=== PATIENT | male | born 1955 | race Caucasian/White ===

== ENCOUNTER 2017-05-20 08:04 | Emergency (ER) | payer MEDICAID ==
[~2017-05-20] VITALS: Ht 170.2 cm; Wt 85.0 kg
[2017-05-20 08:18] VITALS: BP 192/105; PULSE 74; RESP 26; TEMP 98.7; O2SAT 92
[2017-05-20 08:29] VITALS: BP 165/79
[2017-05-20] MEDS ORDERED: ATOR20TA15 PO (08:32)
[2017-05-20] MEDS ORDERED: LEVO150T7 PO (08:32)
[2017-05-20] MEDS ORDERED: BACL10TA PO (08:32)
[2017-05-20] MEDS ORDERED: LOSA100T PO (08:32)
[2017-05-20] MEDS ORDERED: GABA600T PO (08:32)
[2017-05-20] MEDS ORDERED: IBUP1TAB7 PO (08:32)
[2017-05-20 09:14] LABS: AUTOMATED NEUTROPHIL # 4.2 TH/MM3 (1.8-7.7); BASOPHIL # 0.1 TH/MM3 (0-0.2); BASOPHIL % 0.9 % (0.0-2.0); EOSINOPHIL # 0.2 TH/MM3 (0-0.4); EOSINOPHIL % 4.1 % (0.0-4.0); HEMATOCRIT 37.8 % (39.0-51.0); HEMOGLOBIN 12.6 GM/DL (13.0-17.0); LYMPH % 16.5 % (9.0-44.0); MEAN CELL VOLUME 86.4 FL (80.0-100.0); MEAN CORPUSCULAR HEMOGLOBIN 28.8 PG (27.0-34.0); MEAN CORPUSCULAR HGB CONC 33.3 % (32.0-36.0); MEAN PLATELET VOLUME 8.8 FL (7.0-11.0); MONO % 8.9 % (0.0-8.0); MONOCYTE # 0.5 TH/MM3 (0-0.9); NEUT % 69.6 % (16.0-70.0); PLATELET COUNT 190 TH/MM3 (150-450); RED BLOOD COUNT 4.37 MIL/MM3 (4.50-5.90)
--- NOTE | 2017-05-20 09:18 | PD ---
HPI Chief Complaint: Medical Clearance Time Seen by Provider: 08:23 Travel History International Travel<30 days: No Contact w/Intl Traveler<30days: No Traveled to known affect area: No History of Present Illness HPI This is a 62-year-old male with history of cerebral palsy, hypothyroidism, COPD , who presents here via EMS after he called because he needs help caring for himself. According to the paramedics and the patient, he was discharged from an [facility] yesterday. Report was that he has called EMS 3 times to help him. The patient complains of drainage from his ears bilaterally. He denies any other symptoms at this time. He is a difficult historian however he states that he is unable to care for himself and his dog at home. There are no other complaints. PFSH Past Medical History High Cholesterol: Yes Diminished Hearing: Yes Hypertension: Yes Medical other: Yes (CEREBRAL PALSEY, BASOGANGLIAL DYSFUNCTION) Thyroid Disease: Yes Past Surgical History Abdominal Surgery: Yes (HERNIA) Eye Surgery: Yes Social History Alcohol Use: No Tobacco Use: No Substance Use: No Allergies-Medications (Allergen,Severity, Reaction): Coded Allergies: No Known Allergies (Unverified , 05/20/17) Reported Meds & Prescriptions Reported Meds & Active Scripts Active Ofloxacin Otic Drops 0.3 % Drops 5 Drop LEFT EAR DAILY 7 Days Reported Levothyroxine (Levothyroxine Sodium) 150 Mcg Tab 150 Mcg PO DAILY Ibuprofen 800 Mg Tab 800 Mg PO TID Losartan (Losartan Potassium) 100 Mg Tab 100 Mg PO DAILY Gabapentin 600 Mg Tab 600 Mg PO BID Baclofen 10 Mg Tab 10 Mg PO BID Atorvastatin (Atorvastatin Calcium) 20 Mg Tab 20 Mg PO HS Review of Systems ROS Limitations: Poor Historian Except as stated in HPI: all other systems reviewed are Neg General / Constitutional: No: Fever, Chills HENT: Positive: Ear Discharge, No: Headaches, Neck Pain Cardiovascular: No: Chest Pain or Discomfort, Palpitations Respiratory: No: Cough, Shortness of Breath Gastrointestinal: No: Nausea, Vomiting, Abdominal Pain Genitourinary: No: Dysuria, Decreased Urinary Output Musculoskeletal: No: Weakness Neurologic: No: Weakness, Dizziness, Headache Physical Exam Narrative GENERAL: Well-developed well-nourished male in no acute respiratory distress. SKIN: Focused skin assessment warm/dry. HEAD: Atraumatic. Normocephalic. EYES: No scleral icterus. No injection or drainage. ENT: No nasal bleeding or discharge. Mucous membranes pink and moist. Patient had purulent discharge in his left ear canal. This is the same canal that that he has a hearing aid in. Right ear canal appeared clear. NECK: Trachea midline. No JVD. CARDIOVASCULAR: Regular rate and rhythm. No murmur appreciated. RESPIRATORY: No accessory muscle use. Clear to auscultation. Breath sounds equal bilaterally. GASTROINTESTINAL: Abdomen soft, non-tender, nondistended. Hepatic and splenic margins not palpable. MUSCULOSKELETAL: No obvious deformities. No clubbing. No cyanosis. No edema. NEUROLOGICAL: Awake and alert. Motor grossly within normal limits. Pressured speech secondary to his chronic medical condition Data Data Last Documented VS Vital Signs Date Time Temp Pulse Resp B/P (MAP) Pulse Ox O2 Delivery O2 Flow Rate FiO2 05/20/17 08:29 165/79 (107) 05/20/17 08:18 98.7 74 26 92 Nasal Cannula 2.00 Orders Orders Complete Blood Count With Diff (05/20/17 08:29) Comprehensive Metabolic Panel (05/20/17 08:29) Thyroid Stimulating Hormone (05/20/17 08:29) Iv Access Insert/Monitor (05/20/17 08:29) Ecg Monitoring (05/20/17 08:29) Oximetry (05/20/17 08:29) Labs Laboratory Tests Test 05/20/17 08:30 White Blood Count 6.0 TH/MM3 Red Blood Count 4.37 MIL/MM3 Hemoglobin 12.6 GM/DL Hematocrit 37.8 % Mean Corpuscular Volume 86.4 FL Mean Corpuscular Hemoglobin 28.8 PG Mean Corpuscular Hemoglobin Concent 33.3 % Red Cell Distribution Width 14.0 % Platelet Count 190 TH/MM3 Mean Platelet Volume 8.8 FL Neutrophils (%) (Auto) 69.6 % Lymphocytes (%) (Auto) 16.5 % Monocytes (%) (Auto) 8.9 % Eosinophils (%) (Auto) 4.1 % Basophils (%) (Auto) 0.9 % Neutrophils # (Auto) 4.2 TH/MM3 Lymphocytes # (Auto) 1.0 TH/MM3 Monocytes # (Auto) 0.5 TH/MM3 Eosinophils # (Auto) 0.2 TH/MM3 Basophils # (Auto) 0.1 TH/MM3 CBC Comment DIFF FINAL Differential Comment Blood Urea Nitrogen 11 MG/DL Creatinine 0.89 MG/DL Random Glucose 81 MG/DL Total Protein 7.2 GM/DL Albumin 4.0 GM/DL Calcium Level 9.4 MG/DL Alkaline Phosphatase 62 U/L Aspartate Amino Transf (AST/SGOT) 18 U/L Alanine Aminotransferase (ALT/SGPT) 20 U/L Total Bilirubin 0.5 MG/DL Sodium Level 138 MEQ/L Potassium Level 4.0 MEQ/L Chloride Level 98 MEQ/L Carbon Dioxide Level 32.9 MEQ/L Anion Gap 7 MEQ/L Estimat Glomerular Filtration Rate 86 ML/MIN Thyroid Stimulating Hormone 3rd Gen 3.080 uIU/ML MDM Medical Decision Making Medical Screen Exam Complete: Yes Emergency Medical Condition: Yes Differential Diagnosis Poor social situation versus left otitis externa versus metabolic derangement Narrative Course 62-year-old male with history of cerebral palsy, presents today stating he was having difficulty caring for himself after being sent home from an [facility]residential. The patient has left otitis externa. He will be treated with ofloxacin drops. The patient was evaluated by her manager case management and she spoke with his winterizer who states that he is immature and able to care for himself. They will arrange to have follow-up in care for him. The patient is instructed to call if he is unable to care for himself or has any other concerns. Diagnosis Primary Impression: Left otitis externa Additional Impressions: Cerebral palsy Hypothyroidism Scripts Ofloxacin Otic Drops (Ofloxacin Otic Drops) 0.3 % Drops 5 DROP LEFT EAR DAILY for Infection for 7 Days, #1 BOTTLE 0 Refills Prov: Doug Higgins MD 05/20/17 Disposition: DISCHARGE HOME Condition: Stable Doug Higgins MD May 20, 2017 09:18
[2017-05-20 09:24] LABS: AST (GOT) 18 U/L (15-37); BICARBONATE 32.9 MEQ/L (21.0-32.0); BLOOD UREA NITROGEN 11 MG/DL (7-18); CALCIUM 9.4 MG/DL (8.5-10.1); CHLORIDE 98 MEQ/L (98-107); CREATININE 0.89 MG/DL (0.60-1.30); GLOMERULAR FILTRATION RATE 86 ML/MIN (>89); GLUCOSE,RANDOM 81 MG/DL (74-106); SODIUM (NA) 138 MEQ/L (136-145)
[2017-05-20 09:25] LABS: ALT (GPT) 20 U/L (12-78)
[2017-05-20 09:34] LABS: ALKALINE PHOSPHATASE 62 U/L (45-117); TOTAL BILIRUBIN ADULT 0.5 MG/DL (0.2-1.0); TOTAL PROTEIN 7.2 GM/DL (6.4-8.2)
[2017-05-20] MEDS ORDERED: OFLO0.3D9 LEFT EAR (10:49)
== END 2017-05-20 12:35 | disposition home or self-care (01) ==
LOC: NEPE 08:04
DX: H60.92 Unspecified otitis externa, left ear (principal); G80.9 Cerebral palsy, unspecified; E03.9 Hypothyroidism, unspecified; J44.9 Chronic obstructive pulmonary disease, unspecified; I10 Essential (primary) hypertension; E78.00 Pure hypercholesterolemia, unspecified; Z79.899 Other long term (current) drug therapy
CPT/HCPCS: 80053; 84443; 85025; 99283

== ENCOUNTER 2017-05-26 17:57 | Observation (INO) | payer OTHER, MEDICAID ==
[~2017-05-26 17:57] MED LIST: ATOR20TA15 PO; BACL10TA PO; GABA600T PO; IBUP1TAB7 PO; LEVO150T7 PO; LOSA100T PO; OFLO0.3D9 LEFT EAR
[2017-05-26 18:14] VITALS: BP 137/81; PULSE 73; RESP 14; TEMP 98.5; O2SAT 94
[2017-05-26] MEDS ORDERED: SODIUM CHLORIDE 0.9% FLUSH 10 ML FLUSH IVF PRN (19:45)
--- NOTE | 2017-05-26 19:47 | PD ---
HPI Chief Complaint: Medical Clearance Time Seen by Provider: 19:43 Travel History International Travel<30 days: No Contact w/Intl Traveler<30days: No Traveled to known affect area: No History of Present Illness HPI 62-year-old male with history of hypertension presents emergency department for medical clearance. Patient was at home and unable to get out of his chair. He contacted a social science manager who then contacted 911 because she was unable to get to his house. Patient states that he was unable to get out of his chair due to bilateral lower extremity edema. This is been worsening over the last 2 weeks. Reports mild shortness of breath. No chest pain. He states he has otherwise been well. No fever or chills. No nausea vomiting. No cough or chest congestion. No other symptoms to report. PFSH Past Medical History High Cholesterol: Yes Diminished Hearing: Yes Hypertension: Yes Thyroid Disease: Yes Past Surgical History Abdominal Surgery: Yes (HERNIA) Eye Surgery: Yes Social History Alcohol Use: No Tobacco Use: No Substance Use: No Allergies-Medications (Allergen,Severity, Reaction): Coded Allergies: No Known Allergies (Unverified , 05/20/17) Reported Meds & Prescriptions Reported Meds & Active Scripts Active Ofloxacin Otic Drops 0.3 % Drops 5 Drop LEFT EAR DAILY 7 Days Reported Levothyroxine (Levothyroxine Sodium) 150 Mcg Tab 150 Mcg PO DAILY Ibuprofen 800 Mg Tab 800 Mg PO TID Losartan (Losartan Potassium) 100 Mg Tab 100 Mg PO DAILY Gabapentin 600 Mg Tab 600 Mg PO BID Baclofen 10 Mg Tab 10 Mg PO BID Atorvastatin (Atorvastatin Calcium) 20 Mg Tab 20 Mg PO HS Review of Systems Except as stated in HPI: all other systems reviewed are Neg Physical Exam Narrative GENERAL: Unkempt male patient, lying in bed, in no acute distress. SKIN: Focused skin assessment warm/dry. HEAD: Atraumatic. Normocephalic. EYES: Slight crusting around the lash line. ENT: No nasal bleeding or discharge. Mucous membranes pink and mildly dry.. NECK: Trachea midline. No JVD. CARDIOVASCULAR: Regular rate and rhythm. No murmur appreciated. RESPIRATORY: No accessory muscle use. Clear to auscultation. Breath sounds equal bilaterally. GASTROINTESTINAL: Abdomen soft, non-tender, nondistended. Hepatic and splenic margins not palpable. MUSCULOSKELETAL: No obvious deformities. No clubbing. No cyanosis. 2+ bilateral lower extremity edema. NEUROLOGICAL: Awake and alert. No obvious cranial nerve deficits. Motor grossly within normal limits. Normal speech. PSYCHIATRIC: Appropriate mood and affect; insight and judgment normal. Data Data Last Documented VS Vital Signs Date Time Temp Pulse Resp B/P (MAP) Pulse Ox O2 Delivery O2 Flow Rate FiO2 05/26/17 20:27 79 15 154/79 (104) 96 Nasal Cannula 3.00 05/26/17 18:14 98.5 Orders Orders Complete Blood Count With Diff (05/26/17 19:43) Comprehensive Metabolic Panel (05/26/17 19:43) B-Type Natriuretic Peptide (05/26/17 19:43) Act Partial Throm Time (Ptt) (05/26/17 19:43) Prothrombin Time / Inr (Pt) (05/26/17 19:43) Magnesium (Mg) (05/26/17 19:43) Ckmb (Isoenzyme) Profile (05/26/17 19:43) Troponin I (05/26/17 19:43) Iv Access Insert/Monitor (05/26/17 19:43) Electrocardiogram (05/26/17 19:43) Ecg Monitoring (05/26/17 19:43) Oximetry (05/26/17 19:43) Oxygen Administration (05/26/17 19:43) Chest, Single Ap (05/26/17 19:43) Sodium Chloride 0.9% Flush (Ns Flush) (05/26/17 19:45) Furosemide (Lasix) (05/26/17 21:45) Labs Laboratory Tests Test 05/26/17 19:50 White Blood Count 5.8 TH/MM3 Red Blood Count 3.98 MIL/MM3 Hemoglobin 11.1 GM/DL Hematocrit 34.4 % Mean Corpuscular Volume 86.4 FL Mean Corpuscular Hemoglobin 27.7 PG Mean Corpuscular Hemoglobin Concent 32.1 % Red Cell Distribution Width 13.9 % Platelet Count 178 TH/MM3 Mean Platelet Volume 9.1 FL Neutrophils (%) (Auto) 67.3 % Lymphocytes (%) (Auto) 19.1 % Monocytes (%) (Auto) 9.3 % Eosinophils (%) (Auto) 3.6 % Basophils (%) (Auto) 0.7 % Neutrophils # (Auto) 3.9 TH/MM3 Lymphocytes # (Auto) 1.1 TH/MM3 Monocytes # (Auto) 0.5 TH/MM3 Eosinophils # (Auto) 0.2 TH/MM3 Basophils # (Auto) 0.0 TH/MM3 CBC Comment DIFF FINAL Differential Comment Prothrombin Time 10.8 SEC Prothromb Time International Ratio 1.1 RATIO Activated Partial Thromboplast Time 26.6 SEC Blood Urea Nitrogen 22 MG/DL Creatinine 0.87 MG/DL Random Glucose 82 MG/DL Total Protein 6.7 GM/DL Albumin 3.6 GM/DL Calcium Level 8.7 MG/DL Magnesium Level 2.1 MG/DL Alkaline Phosphatase 58 U/L Aspartate Amino Transf (AST/SGOT) 13 U/L Alanine Aminotransferase (ALT/SGPT) 17 U/L Total Bilirubin 0.5 MG/DL Sodium Level 144 MEQ/L Potassium Level 3.8 MEQ/L Chloride Level 106 MEQ/L Carbon Dioxide Level 32.4 MEQ/L Anion Gap 6 MEQ/L Estimat Glomerular Filtration Rate 88 ML/MIN Total Creatine Kinase 84 U/L Troponin I LESS THAN 0.02 NG/ML B-Type Natriuretic Peptide 59 PG/ML MDM Medical Decision Making Medical Screen Exam Complete: Yes Emergency Medical Condition: Yes Medical Record Reviewed: Yes Differential Diagnosis Dependent edema versus electrolyte abnormality versus CHF Narrative Course 62-year-old male presents emergency department for evaluation of bilateral lower extremity edema. Patient appears without distress. Vital signs are stable. Laboratory Tests Test 05/26/17 19:50 White Blood Count 5.8 TH/MM3 Red Blood Count 3.98 MIL/MM3 Hemoglobin 11.1 GM/DL Hematocrit 34.4 % Mean Corpuscular Volume 86.4 FL Mean Corpuscular Hemoglobin 27.7 PG Mean Corpuscular Hemoglobin Concent 32.1 % Red Cell Distribution Width 13.9 % Platelet Count 178 TH/MM3 Mean Platelet Volume 9.1 FL Neutrophils (%) (Auto) 67.3 % Lymphocytes (%) (Auto) 19.1 % Monocytes (%) (Auto) 9.3 % Eosinophils (%) (Auto) 3.6 % Basophils (%) (Auto) 0.7 % Neutrophils # (Auto) 3.9 TH/MM3 Lymphocytes # (Auto) 1.1 TH/MM3 Monocytes # (Auto) 0.5 TH/MM3 Eosinophils # (Auto) 0.2 TH/MM3 Basophils # (Auto) 0.0 TH/MM3 CBC Comment DIFF FINAL Differential Comment Prothrombin Time 10.8 SEC Prothromb Time International Ratio 1.1 RATIO Activated Partial Thromboplast Time 26.6 SEC Blood Urea Nitrogen 22 MG/DL Creatinine 0.87 MG/DL Random Glucose 82 MG/DL Total Protein 6.7 GM/DL Albumin 3.6 GM/DL Calcium Level 8.7 MG/DL Magnesium Level 2.1 MG/DL Alkaline Phosphatase 58 U/L Aspartate Amino Transf (AST/SGOT) 13 U/L Alanine Aminotransferase (ALT/SGPT) 17 U/L Total Bilirubin 0.5 MG/DL Sodium Level 144 MEQ/L Potassium Level 3.8 MEQ/L Chloride Level 106 MEQ/L Carbon Dioxide Level 32.4 MEQ/L Anion Gap 6 MEQ/L Estimat Glomerular Filtration Rate 88 ML/MIN Total Creatine Kinase 84 U/L Troponin I LESS THAN 0.02 NG/ML B-Type Natriuretic Peptide 59 PG/ML Last Impressions Chest X-Ray 05/26/171942 Signed Impressions: Service Date/Time: Friday, May 26, 2017 20:14 - CONCLUSION: Prominence of the left hilar region. Maurice Zayas MD Findings are discussed with my attending physician who is also reviewed them. Patient is given 20 mg by mouth Lasix. He will be observed in the emergency department and disposition per my attending's judgment. Diagnosis Primary Impression: Bilateral lower extremity edema Condition: Stable RenoDaysiwally FELTON May 26, 2017 19:47
[2017-05-26 20:23] VITALS: RESP 20; O2SAT 100
[2017-05-26 20:27] VITALS: BP 154/79; PULSE 79; RESP 15; O2SAT 96
[2017-05-26 20:46] LABS: AUTOMATED NEUTROPHIL # 3.9 TH/MM3 (1.8-7.7); BASOPHIL % 0.7 % (0.0-2.0); EOSINOPHIL # 0.2 TH/MM3 (0-0.4); EOSINOPHIL % 3.6 % (0.0-4.0); HEMATOCRIT 34.4 % (39.0-51.0); HEMOGLOBIN 11.1 GM/DL (13.0-17.0); LYMPH % 19.1 % (9.0-44.0); LYMPHOCYTE # 1.1 TH/MM3 (1.0-4.8); MEAN CELL VOLUME 86.4 FL (80.0-100.0); MEAN CORPUSCULAR HEMOGLOBIN 27.7 PG (27.0-34.0); MEAN CORPUSCULAR HGB CONC 32.1 % (32.0-36.0); MEAN PLATELET VOLUME 9.1 FL (7.0-11.0); MONO % 9.3 % (0.0-8.0); MONOCYTE # 0.5 TH/MM3 (0-0.9); NEUT % 67.3 % (16.0-70.0); PLATELET COUNT 178 TH/MM3 (150-450); RED BLOOD COUNT 3.98 MIL/MM3 (4.50-5.90); RED CELL DISTRIBUTION WIDTH 13.9 % (11.6-17.2); WHITE BLOOD COUNT 5.8 TH/MM3 (4.0-11.0)
[2017-05-26 20:57] LABS: ALBUMIN 3.6 GM/DL (3.4-5.0); AST (GOT) 13 U/L (15-37); BICARBONATE 32.4 MEQ/L (21.0-32.0); BLOOD UREA NITROGEN 22 MG/DL (7-18); CALCIUM 8.7 MG/DL (8.5-10.1); CHLORIDE 106 MEQ/L (98-107); CREATININE 0.87 MG/DL (0.60-1.30); GLOMERULAR FILTRATION RATE 88 ML/MIN (>89); GLUCOSE,RANDOM 82 MG/DL (74-106); MAGNESIUM 2.1 MG/DL (1.5-2.5); SODIUM (NA) 144 MEQ/L (136-145)
[2017-05-26 20:58] LABS: ALT (GPT) 17 U/L (12-78)
[2017-05-26 21:00] LABS: INTERNATIONAL NORMALIZED RATIO 1.1 RATIO; PROTHROMBIN TIME - PATIENT 10.8 SEC (9.8-11.6)
[2017-05-26 21:02] LABS: ALKALINE PHOSPHATASE 58 U/L (45-117); TOTAL BILIRUBIN ADULT 0.5 MG/DL (0.2-1.0); TOTAL PROTEIN 6.7 GM/DL (6.4-8.2); TROPONIN I LESS THAN 0.02 NG/ML (0.02-0.05)
--- NOTE | 2017-05-26 21:05 | RADRPT ---
EXAM DATE/TIME: 05/26/2017 20:14 [place] COMPARISON: No previous studies available for comparison. INDICATIONS : Shortness of breath. MEDICAL HISTORY : None. SURGICAL HISTORY : None. ENCOUNTER: Initial ACUITY: 1 day PAIN SCORE: Non-responsive. LOCATION: Bilateral chest FINDINGS: The heart size is within normal. The lungs are grossly clear. The left hilar region appears prominent . A significant effusion is not seen. CONCLUSION: Prominence of the left hilar region. Maurice Zayas MD on May 26, 2017 at 21:02 Board Certified Radiologist. This report was verified electronically.
[2017-05-26] MEDS ORDERED: FUROSEMIDE 20 MG TAB PO ONE (21:45)
[2017-05-26 23:37] VITALS: BP 147/82; PULSE 97; RESP 20; O2SAT 96
--- NOTE | 2017-05-27 03:29 | PD ---
Physical Exam Date Seen by Provider: May 26, 2017 Time Seen by Provider: 23:30 Narrative Patient is a 62-year-old male seen by the PA nurse practitioner Daysi we discussed that I would observe the patient after we gave 20 of Lasix patient is given 20 of Lasix p.o. his legs are edematous and he is not on any diuretic he has a visiting nurse but there is unable to help him because he is unable to get up out of his chair and legs are weak and edema of legs is worsening he is becoming unable to care for himself .. Data Data Last Documented VS Vital Signs Date Time Temp Pulse Resp B/P (MAP) Pulse Ox O2 Delivery O2 Flow Rate FiO2 05/26/17 23:37 97 20 147/82 (103) 96 3.00 05/26/17 20:27 Nasal Cannula 05/26/17 18:14 98.5 Orders Orders Complete Blood Count With Diff (05/26/17 19:43) Comprehensive Metabolic Panel (05/26/17 19:43) B-Type Natriuretic Peptide (05/26/17 19:43) Act Partial Throm Time (Ptt) (05/26/17 19:43) Prothrombin Time / Inr (Pt) (05/26/17 19:43) Magnesium (Mg) (05/26/17 19:43) Ckmb (Isoenzyme) Profile (05/26/17 19:43) Troponin I (05/26/17 19:43) Iv Access Insert/Monitor (05/26/17 19:43) Electrocardiogram (05/26/17 19:43) Ecg Monitoring (05/26/17 19:43) Oximetry (05/26/17 19:43) Oxygen Administration (05/26/17 19:43) Chest, Single Ap (05/26/17 19:43) Sodium Chloride 0.9% Flush (Ns Flush) (05/26/17 19:45) Furosemide (Lasix) (05/26/17 21:45) Place In Observation (05/27/17 ) Vital Signs (Adult) Q4H (05/27/17 03:24) Activity Oob With Assistance (05/27/17 03:24) Diet Heart Healthy (05/27/17 Breakfast) Sodium Chloride 0.9% Flush (Ns Flush) (05/27/17 03:30) Sodium Chloride 0.9% Flush (Ns Flush) (05/27/17 09:00) Ondansetron Inj (Zofran Inj) (05/27/17 03:30) Comprehensive Metabolic Panel (05/28/17 06:00) Complete Blood Count With Diff (05/28/17 06:00) Pt Request For Service (05/27/17 03:24) Case Management Consult (05/27/17 03:24) Scd Bilateral/Knee High SALMA.BID (05/27/17 03:24) Mauro Bilateral/Knee High SALMA.QSHIFT (05/27/17 03:29) Acetaminophen (Tylenol) (05/27/17 03:30) Acetamin-Hydrocod 325-5 Mg ([place] 5-325 (05/27/17 03:30) Acetamin-Hydrocod 325-10 Mg ([place] 10-32 (05/27/17 03:30) Docusate Sodium-Senna (Ny-Colace) (05/27/17 09:00) Magnesium Hydroxide Liq (Milk Of Magnesi (05/27/17 03:30) Sennosides (Senokot) (05/27/17 03:30) Bisacodyl Supp (Dulcolax Supp) (05/27/17 03:30) Lactulose Liq (Lactulose Liq) (05/27/17 03:30) Atorvastatin (Lipitor) (05/27/17 21:00) Baclofen (Lioresal) (05/27/17 09:00) Gabapentin (Neurontin) (05/27/17 09:00) Levothyroxine (Synthroid) (05/27/17 07:00) Losartan (Cozaar) (05/27/17 09:00) Admit Order (Ed Use Only) (05/27/17 03:29) Labs Laboratory Tests Test 05/26/17 19:50 White Blood Count 5.8 TH/MM3 Red Blood Count 3.98 MIL/MM3 Hemoglobin 11.1 GM/DL Hematocrit 34.4 % Mean Corpuscular Volume 86.4 FL Mean Corpuscular Hemoglobin 27.7 PG Mean Corpuscular Hemoglobin Concent 32.1 % Red Cell Distribution Width 13.9 % Platelet Count 178 TH/MM3 Mean Platelet Volume 9.1 FL Neutrophils (%) (Auto) 67.3 % Lymphocytes (%) (Auto) 19.1 % Monocytes (%) (Auto) 9.3 % Eosinophils (%) (Auto) 3.6 % Basophils (%) (Auto) 0.7 % Neutrophils # (Auto) 3.9 TH/MM3 Lymphocytes # (Auto) 1.1 TH/MM3 Monocytes # (Auto) 0.5 TH/MM3 Eosinophils # (Auto) 0.2 TH/MM3 Basophils # (Auto) 0.0 TH/MM3 CBC Comment DIFF FINAL Differential Comment Prothrombin Time 10.8 SEC Prothromb Time International Ratio 1.1 RATIO Activated Partial Thromboplast Time 26.6 SEC Blood Urea Nitrogen 22 MG/DL Creatinine 0.87 MG/DL Random Glucose 82 MG/DL Total Protein 6.7 GM/DL Albumin 3.6 GM/DL Calcium Level 8.7 MG/DL Magnesium Level 2.1 MG/DL Alkaline Phosphatase 58 U/L Aspartate Amino Transf (AST/SGOT) 13 U/L Alanine Aminotransferase (ALT/SGPT) 17 U/L Total Bilirubin 0.5 MG/DL Sodium Level 144 MEQ/L Potassium Level 3.8 MEQ/L Chloride Level 106 MEQ/L Carbon Dioxide Level 32.4 MEQ/L Anion Gap 6 MEQ/L Estimat Glomerular Filtration Rate 88 ML/MIN Phosphorus Level 2.5 MG/DL Total Creatine Kinase 84 U/L Troponin I LESS THAN 0.02 NG/ML B-Type Natriuretic Peptide 59 PG/ML 25-Hydroxy Vitamin D Total 43.3 ng/ML Thyroid Stimulating Hormone 3rd Gen 0.473 uIU/ML MDM Supervised Visit with MELVIN: Yes Differential Diagnosis DDx includes renal insufficiency overload fluid to legs vs CHF pump failure to peripheral edema vs vascular valve incompetence vs other causes of edema . Narrative Course pt has not improved with lasix and will need to be admitted. On further investigation by nursing it is discovered he is failing with his ADL and unable to care for himself at home and there was involvemant of visiting Nurse service that he needs admission medically and also re-eval for long-term facility living as opposed to independent living. He has a dog that he is very upset he can't take care of his dog now .. Apparently the dog was placed in custody of another. Diagnosis Primary Impression: Bilateral lower extremity edema Additional Impression: Impaired mobility and ADLs Admitting Information Admitting Physician Requests: Observation Scripts Ascorbic Acid (Sm Chewable C) 500 Mg Chw 250 MG PO BID for Anemia, #30 EA Prov: Sylvia Waite 05/29/17 Pantoprazole (Pantoprazole) 40 Mg Tab 40 MG PO DAILY for Reflux, #30 TAB Prov: Sylvia Waite 05/29/17 Ferrous Sulfate (Ferosul) 325 Mg (65 Mg Iron) Tablet 325 MG PO BID for Anemia, #60 TAB Prov: Sylvia Waite 05/29/17 Tamsulosin (Flomax) 0.4 Mg Cap 0.4 MG PO DAILY for Enlarged prostate, #30 CAP Prov: Sylvia Waite 05/29/17 Condition: Stable Anirudh Hardy MD May 27, 2017 03:29
[2017-05-27] MEDS ORDERED: MAGNESIUM HYDROXIDE SUSP 30 ML CUP PO PRN (03:30)
[2017-05-27] MEDS ORDERED: LACTULOSE SYRUP 20 GM/30 ML CUP PO PRN (03:30)
[2017-05-27] MEDS ORDERED: BISACODYL 10 MG SUPP RECTAL PRN (03:30)
[2017-05-27] MEDS ORDERED: SENNOSIDES 8.6 MG TAB PO PRN (03:30)
[2017-05-27] MEDS ORDERED: ACETAMINOPHEN/HYDROcodone 325 MG/5 MG TAB PO PRN (03:30)
[2017-05-27] MEDS ORDERED: SODIUM CHLORIDE 0.9% FLUSH 10 ML FLUSH IV FLUSH PRN (03:30)
[2017-05-27] MEDS ORDERED: ACETAMINOPHEN 325 MG TAB PO PRN (03:30)
[2017-05-27] MEDS ORDERED: ONDANSETRON HCL 4 MG/2 ML VIAL IVP PRN (03:30)
--- NOTE | 2017-05-27 04:03 | HHI.HP ---
[facility] Service [place] [facility] Primary Care Physician Dejuan Ruby MD Admission Diagnosis periperal edema mild CHF Diagnoses: (1) Bilateral lower extremity edema Diagnosis: Principal (2) Otitis externa Diagnosis: Principal (3) Total self-care deficit Diagnosis: Principal Travel History International Travel<30 Days: No Contact w/Intl Traveler <30 Da: No Traveled to Known Affected Are: No History of Present Illness This is a 62-year-old male with a PMH of Cerebral Palsy, HTN, Hyperlipidemia and Hearing/Vision Loss who was brought to the ER by EMS after pt unable to get out of chair. Pt reports worsening lower extremity edema and unable to get around on his own. Was seen in ER on 05/20/17 for similar complaints, found to have Otitis Externa, given antibiotic drops and d/c'd back to [facility] under the care of [facility]. Today, pt called Trip Rider as he was unable to get up and can't take care of self. On arrival, BP 137/81, HR 73, O2 sat 94% on RA , Afebrile. CBC unremarkable. Chemistry essentially unremarkable. Troponin negative. INR 1.1. CXR with prominence of left hilar region. S/p Lasix IV in ER. Case Management consulted, pt unable to be d/c'd back to [facility] as unable to care for self, unsafe d/c at this time. Review of Systems Except as stated in HPI: all other systems reviewed are Neg ROS: 14 point review of systems otherwise negative. Past Family Social History Past Medical History PMH: Cerebral Palsy, HTN, Hyperlipidemia and Hearing/Vision Loss Past Surgical History PAST SURGICAL HISTORY: Hernia Repair, Eye Surgery Allergies: Coded Allergies: No Known Allergies (Unverified , 05/20/17) Family History PAST FAMILY HISTORY: Reviewed. No h/o DM or CAD Social History PAST SOCIAL HISTORY: Negative for alcohol, tobacco or drugs. Physical Exam Vital Signs Vital Signs Date Time Temp Pulse Resp B/P (MAP) Pulse Ox O2 Delivery O2 Flow Rate FiO2 05/26/17 23:37 97 20 147/82 (103) 96 3.00 05/26/17 20:27 79 15 154/79 (104) 96 Nasal Cannula 3.00 05/26/17 20:23 20 100 Nasal Cannula 3.00 05/26/17 20:22 100 Nasal Cannula 3.00 05/26/17 18:14 98.5 73 14 137/81 (99) 94 Physical Exam PE: GENERAL: Middle-aged white male in no acute distress. Hearing/vision impaired. HEENT: PERRLA, EOMI. No scleral icterus or conjunctival pallor. No lid lag or facial droop. CARDIOVASCULAR: Regular rate and rhythm. No obvious murmurs to auscultation. No chest tenderness to palpation. RESPIRATORY: No obvious rhonchi or wheezing. Clear to auscultation. Breath sounds equal bilaterally. GASTROINTESTINAL: Abdomen soft, non-tender, nondistended. BS normal. MUSCULOSKELETAL: Extremities without clubbing, cyanosis. +2 edema. No obvious deformities. NEUROLOGICAL: Awake, alert and oriented x4. No focal neurologic deficits. Moving both upper and lower extremities spontaneously. Laboratory Laboratory Tests Test 05/26/17 19:50 White Blood Count 5.8 Red Blood Count 3.98 Hemoglobin 11.1 Hematocrit 34.4 Mean Corpuscular Volume 86.4 Mean Corpuscular Hemoglobin 27.7 Mean Corpuscular Hemoglobin Concent 32.1 Red Cell Distribution Width 13.9 Platelet Count 178 Mean Platelet Volume 9.1 Neutrophils (%) (Auto) 67.3 Lymphocytes (%) (Auto) 19.1 Monocytes (%) (Auto) 9.3 Eosinophils (%) (Auto) 3.6 Basophils (%) (Auto) 0.7 Neutrophils # (Auto) 3.9 Lymphocytes # (Auto) 1.1 Monocytes # (Auto) 0.5 Eosinophils # (Auto) 0.2 Basophils # (Auto) 0.0 CBC Comment DIFF FINAL Differential Comment Prothrombin Time 10.8 Prothromb Time International Ratio 1.1 Activated Partial Thromboplast Time 26.6 Blood Urea Nitrogen 22 Creatinine 0.87 Random Glucose 82 Total Protein 6.7 Albumin 3.6 Calcium Level 8.7 Magnesium Level 2.1 Alkaline Phosphatase 58 Aspartate Amino Transf (AST/SGOT) 13 Alanine Aminotransferase (ALT/SGPT) 17 Total Bilirubin 0.5 Sodium Level 144 Potassium Level 3.8 Chloride Level 106 Carbon Dioxide Level 32.4 Anion Gap 6 Estimat Glomerular Filtration Rate 88 Total Creatine Kinase 84 Troponin I LESS THAN 0.02 B-Type Natriuretic Peptide 59 Result Diagram: 05/26/17 1950 05/26/171949 Caprini VTE Risk Assessment Caprini VTE Risk Assessment: No/Low Risk (score <= 1) Caprini Risk Assessment Model Point Value = 1 Point Value = 2 Point Value = 3 Point Value = 5 Age 41-60 Minor surgery BMI > 25 kg/m2 Swollen legs Varicose veins or History of unexplained or recurrent spontaneous Oral contraceptives or hormone replacement Sepsis (< 1 month) Serious lung disease, including pneumonia (< 1 month) Abnormal pulmonary function Acute myocardial infarction Congestive heart failure (< 1 month) History of inflammatory bowel disease Medical patient at bed rest Age 61-74 Arthroscopic surgery Major open surgery (> 45 min) Laparoscopic surgery (> 45 min) Malignancy Confined to bed (> 72 hours) Immobilizing plaster cast Central venous access Age >= 75 History of VTE Family history of VTE Factor V Leiden Prothrombin [id number] Lupus anticoagulant Anticardiolipin antibodies Elevated serum homocysteine Heparin-induced thrombocytopenia Other congenital or acquired thrombophilia Stroke (< 1 month) Elective arthroplasty Hip, pelvis, or leg fracture Acute spinal cord injury (< 1 month) Prophylaxis Regimen Total Risk Factor Score Risk Level Prophylaxis Regimen 0-1 Low Early ambulation 2 Moderate Order ONE of the following: *Sequential Compression Device (SCD) *Heparin 5000 units SQ BID 3-4 Higher Order ONE of the following medications: *Heparin 5000 units SQ TID *Enoxaparin/Lovenox 40 mg SQ daily (WT < 150 kg, CrCl > 30 mL/min) *Enoxaparin/Lovenox 30 mg SQ daily (WT < 150 kg, CrCl > 10-29 mL/min) *Enoxaparin/Lovenox 30 mg SQ BID (WT < 150 kg, CrCl > 30 mL/min) AND/OR *Sequential Compression Device (SCD) 5 or more Highest Order ONE of the following medications: *Heparin 5000 units SQ TID (Preferred with Epidurals) *Enoxaparin/Lovenox 40 mg SQ daily (WT < 150 kg, CrCl > 30 mL/min) *Enoxaparin/Lovenox 30 mg SQ daily (WT < 150 kg, CrCl > 10-29 mL/min) *Enoxaparin/Lovenox 30 mg SQ BID (WT < 150 kg, CrCl > 30 mL/min) AND *Sequential Compression Device (SCD) Assessment and Plan Problem List: (1) Bilateral lower extremity edema ICD Code: R60.0 - Localized edema Status: Acute (2) Otitis externa ICD Code: H60.90 - Unspecified otitis externa, unspecified ear (3) Total self-care deficit ICD Code: R41.89 - Other symptoms and signs involving cognitive functions and awareness Assessment and Plan A/P: 1. Bilateral LE Edema: no h/o CHF, BNP normal, CXR w/ hilar prominence, likely vascular congestion, s/p Lasix 20mg IV in ER, monitor I/O. c/o associated SOB, will check Echo to eval for systolic/diastolic function. Trop negative, no c/o chest pain. 2. Otitis Externa: recent ER eval 05/20/17, +otitis externa, resume Ofloxacin gtts. 3. Total Self Care Deficit: pt w/ h/o Cerebral Palsy, Hearing/Vision Loss w/ progressive decline in function. Unable to care for self, unsafe d/c back to [facility]. Case Management recommending admission for placement. Will consult PT for eval/tx. 4. DVT Prophylaxis: SCD/Teds. 5. Social work for d/c planning as needed 6. Case discussed w/ ER physician at length, labs/records/imaging reviewed by me. Tara Collier MD May 27, 2017 04:02
[2017-05-27 04:34] VITALS: BP 140/89; PULSE 67; RESP 16; TEMP 98.1; O2SAT 94
[2017-05-27] MEDS: LEVOTHYROXINE SODIUM 150 MCG TAB PO SCH (04:46)
[2017-05-27 07:14] VITALS: BP 182/104; PULSE 56; RESP 14; TEMP 98.6; O2SAT 94
--- NOTE | 2017-05-27 07:57 | HHI.PR ---
Subjective Remarks Follow up on patient with BLE edema, unable to care for self, unsafe discharge back to [facility]. Patient seen and examined. Patient complaining of dysuria and difficulty initiating urination. States he has pain all over. Denies any fever or chills. Denies any chest pain or shortness of breath. Denies any nausea, vomiting or abdominal pain. Reports he uses oxygen at home 24/7 6LNC but is requesting a portable unit. Objective Vitals Vital Signs Date Time Temp Pulse Resp B/P (MAP) Pulse Ox O2 Delivery O2 Flow Rate FiO2 05/27/17 07:14 98.6 56 14 182/104 (130) 94 05/27/17 04:34 98.1 67 16 140/89 (106) 94 05/27/17 04:24 05/26/17 23:37 97 20 147/82 (103) 96 3.00 05/26/17 20:27 79 15 154/79 (104) 96 Nasal Cannula 3.00 05/26/17 20:23 20 100 Nasal Cannula 3.00 05/26/17 20:22 100 Nasal Cannula 3.00 05/26/17 18:14 98.5 73 14 137/81 (99) 94 I/O 05/26/17 05/26/17 05/26/17 05/27/17 05/27/17 05/27/17 07:00 15:00 23:00 07:00 15:00 23:00 Output Total 700 ml Balance -700 ml Output Urine Total 700 ml # Voids 1 Result Diagram: 05/26/17 1950 05/26/171949 Imaging Last Impressions Chest X-Ray 05/26/171942 Signed Impressions: Service Date/Time: Friday, May 26, 2017 20:14 - CONCLUSION: Prominence of the left hilar region. Maurice Zayas MD Objective Remarks GENERAL: Well developed well nourished male patient, in no acute distress. Hearing/vision impaired. Awake and alert. HEENT: PERRLA, EOMI. No scleral icterus or conjunctival pallor. No lid lag or facial droop. CARDIOVASCULAR: Regular rate and rhythm. No obvious murmurs to auscultation. No chest tenderness to palpation. RESPIRATORY: No obvious rhonchi or wheezing. Clear to auscultation. Breath sounds equal bilaterally. GASTROINTESTINAL: Abdomen soft, non-tender, nondistended. BS normal. MUSCULOSKELETAL: Extremities without clubbing, cyanosis. BLE with nonpitting edema. No obvious deformities. NEUROLOGICAL: Awake, alert and oriented x4. No focal neurologic deficits. Moving both upper and lower extremities spontaneously. Medications and IVs Current Medications Medications (Trade) Dose Ordered Sig/Jacquie Route Start Time Stop Time Status Last Admin (NS Flush) 2 ml UNSCH PRN IVF 05/26/17 19:45 (NS Flush) 2 ml UNSCH PRN IV FLUSH 05/27/17 03:30 (NS Flush) 2 ml BID IV FLUSH 05/27/17 09:00 (Zofran Inj) 4 mg Q6H PRN IVP 05/27/17 03:30 (Tylenol) 650 mg Q6H PRN PO 05/27/17 03:30 ([place] 5-325 Mg) 1 tab Q4H PRN PO 05/27/17 03:30 ([place] 10-325 Mg) 1 tab Q4H PRN PO 05/27/17 03:30 (Ny-Colace) 1 tab BID PO 05/27/17 09:00 (Milk Of Magnesia Liq) 30 ml Q12H PRN PO 05/27/17 03:30 (Senokot) 17.2 mg Q12H PRN PO 05/27/17 03:30 (Dulcolax Supp) 10 mg DAILY PRN RECTAL 05/27/17 03:30 (Lactulose Liq) 30 ml DAILY PRN PO 05/27/17 03:30 (Lipitor) 20 mg HS PO 05/27/17 21:00 (Lioresal) 10 mg BID PO 05/27/17 09:00 (Neurontin) 600 mg BID PO 05/27/17 09:00 (Synthroid) 150 mcg DAILY@0700 PO 05/27/17 07:00 05/27/17 04:46 (Cozaar) 100 mg DAILY PO 05/27/17 09:00 (Floxin 0.3% Otic Soln) 5 drop DAILY LEFT EAR 05/27/17 09:00 A/P Problem List: (1) Bilateral lower extremity edema ICD Code: R60.0 - Localized edema Status: Acute (2) Otitis externa ICD Code: H60.90 - Unspecified otitis externa, unspecified ear (3) Total self-care deficit ICD Code: R41.89 - Other symptoms and signs involving cognitive functions and awareness Assessment and Plan Bilateral LE Edema with associated SOB: no h/o CHF -CXR w/ hilar prominence -BNP 59 -s/p Lasix 20mg IV in ER, monitor I/O and electrolytes -check Echo to eval for systolic/diastolic function -Trop negative, no c/o chest pain -continue supplemental oxygen, patient uses 6LNC at home, currently satting 96% on 3L Hypertension, uncontrolled -BP 182/104 this am -resume patient on home dose of Cozaar 100mg daily -Clonidine with parameters prn -monitor BP and adjust treatment accordingly Otitis Externa: recent ER eval 05/20/17, +otitis externa -resume Ofloxacin gtts Total Self Care Deficit: pt w/ h/o Cerebral Palsy, Hearing/Vision Loss w/ progressive decline in function -Unable to care for self, unsafe d/c back to [facility]. Patient has a service animal. -Case Management recommending admission for placement. -PT for eval/tx -Continue on home dose of gabapentin and baclofen Hypothyroidism -continue on home dose of Levothyroxine 150mcg daily -obtain TSH level Dysuria Hesitancy -UA ordered -start Flomax 0.4mg daily DVT Prophylaxis: SCD/Teds. Discharge Planning Pending clinical improvement and safe discharge plan Sylvia Waite May 27, 2017 07:57
[2017-05-27] MEDS ORDERED: cloNIDine HCL 0.1 MG TAB PO PRN (08:00)
[2017-05-27] MEDS: DOCUSATE SODIUM 50 MG/SENNA 8.6 MG TAB PO SCH ×2 (08:07→20:49)
[2017-05-27] MEDS: GABAPENTIN 300 MG CAP PO SCH ×2 (08:07→20:50)
[2017-05-27] MEDS: BACLOFEN 10 MG TAB PO SCH ×2 (08:07→20:49)
[2017-05-27] MEDS: LOSARTAN 50 MG TAB PO SCH (08:08)
[2017-05-27] MEDS: SODIUM CHLORIDE 0.9% FLUSH 10 ML FLUSH IV FLUSH SCH ×2 (08:08→20:53)
[2017-05-27] MEDS ORDERED: OFLOXACIN 0.3% OTIC SOLN 5 ML BTL LEFT EAR SCH (09:00)
[2017-05-27 10:14] LABS: PHOSPHORUS 2.5 MG/DL (2.5-4.9)
[2017-05-27] MEDS: ACETAMINOPHEN/HYDROcodone 325 MG/10 MG TAB PO PRN ×4 (11:12→23:38)
[2017-05-27] MEDS: OFLOXACIN 0.3% OPTH SOLN 5 ML BTL LEFT EAR SCH (11:17)
[2017-05-27 11:21] LABS: BILIRUBIN, URINE NEG (NEG); BLOOD, URINE NEG (NEG); GLUCOSE,URINE NEG (NEG); HYALINE CAST, URINE 3 /lpf (RARE); KETONE, URINE NEG (NEG); MUCUS URINE FEW /lpf (OCC); NITRITE,URINE NEG (NEG); PH, URINE 5.5 (5.0-8.5); URINE COLOR YELLOW (YELLW/STRAW); URINE LEUKOCYTE ESTERASE NEG (NEG)
[2017-05-27 12:27] VITALS: BP 153/86; RESP 14; TEMP 97.4; O2SAT 96
--- NOTE | 2017-05-27 14:00 | EKG ---
Date Performed: 05/26/2017 Time Performed: 20:22:27 PTAGE: 62 years EKG: Sinus rhythm WITH OCCASIONAL SUPRAVENTRICULAR PREMATURE COMPLEXES BORDERLINE LEFT AXIS DEVIATION BORDERLINE ECG NO PREVIOUS TRACING DOCTOR: Judd Mendez Interpretating Date/Time 05/27/2017 13:57:59
[2017-05-27] MEDS ORDERED: TAMSULOSIN HCL 0.4 MG CAP PO ONE (14:45)
[2017-05-27] MEDS: ATORVASTATIN 20 MG TAB PO SCH (20:49)
[2017-05-27 20:57] VITALS: BP 111/68; PULSE 87; RESP 18; TEMP 98; O2SAT 95
[2017-05-27 23:33] VITALS: BP 108/70; PULSE 65; RESP 18; TEMP 98.2; O2SAT 91
[2017-05-28 03:19] VITALS: BP 111/59; PULSE 57; RESP 16; TEMP 98.1; O2SAT 99
--- NOTE | 2017-05-28 07:41 | HHI.PR ---
Subjective Remarks Follow up on patient with BLE edema, unable to care for self, unsafe discharge back to [facility]. Patient seen and examined. Patient states he legs are better. His breathing has improved. He denies any fever or chills. He denies any chest pain or shortness of breath. He denies any N/V or abdominal pain. He is urinating well. He would like to have his iron checked due to it being low in the past. Objective Vitals Vital Signs Date Time Temp Pulse Resp B/P (MAP) Pulse Ox O2 Delivery O2 Flow Rate FiO2 05/28/17 03:19 98.1 57 16 111/59 (76) 99 05/28/17 01:49 18 05/27/17 23:33 98.2 65 18 108/70 (83) 91 05/27/17 20:57 98.0 87 18 111/68 (82) 95 05/27/17 12:27 97.4 14 153/86 (108) 96 I/O 05/27/17 05/27/17 05/27/17 05/28/17 05/28/17 05/28/17 07:00 15:00 23:00 07:00 15:00 23:00 Intake Total 200 ml Output Total 700 ml 500 ml Balance -700 ml -300 ml Intake Oral 200 ml Output Urine Total 700 ml 500 ml Bladder Scan Volume Amount 182 ml # Voids 1 Result Diagram: 05/26/17 1950 05/26/171949 Imaging Last Impressions Chest X-Ray 05/26/171942 Signed Impressions: Service Date/Time: Friday, May 26, 2017 20:14 - CONCLUSION: Prominence of the left hilar region. Maurice Zayas MD Objective Remarks GENERAL: Well developed well nourished male patient, in no acute distress. Hearing/vision impaired. Awake and alert. Sitting up on side of bed. HEENT: PERRLA, EOMI. No scleral icterus or conjunctival pallor. No lid lag or facial droop. On 4LNC. CARDIOVASCULAR: Regular rate and rhythm. No obvious murmurs to auscultation. No chest tenderness to palpation. RESPIRATORY: No obvious rhonchi or wheezing. Clear to auscultation. Breath sounds equal bilaterally. GASTROINTESTINAL: Abdomen soft, non-tender, nondistended. BS normal. MUSCULOSKELETAL: Extremities without clubbing, cyanosis. BLE with nonpitting edema. No obvious deformities. NEUROLOGICAL: Awake, alert and oriented x4. No focal neurologic deficits. Moves all extremities spontaneously. PSYCHIATRIC: Medications and IVs Current Medications Medications (Trade) Dose Ordered Sig/Jacquie Route Start Time Stop Time Status Last Admin (NS Flush) 2 ml UNSCH PRN IVF 05/26/17 19:45 (NS Flush) 2 ml UNSCH PRN IV FLUSH 05/27/17 03:30 (NS Flush) 2 ml BID IV FLUSH 05/27/17 09:00 05/27/17 08:08 (Zofran Inj) 4 mg Q6H PRN IVP 05/27/17 03:30 (Tylenol) 650 mg Q6H PRN PO 05/27/17 03:30 ([place] 5-325 Mg) 1 tab Q4H PRN PO 05/27/17 03:30 ([place] 10-325 Mg) 1 tab Q4H PRN PO 05/27/17 03:30 05/27/17 23:38 (Ny-Colace) 1 tab BID PO 05/27/17 09:00 05/27/17 20:49 (Milk Of Magnesia Liq) 30 ml Q12H PRN PO 05/27/17 03:30 (Senokot) 17.2 mg Q12H PRN PO 05/27/17 03:30 (Dulcolax Supp) 10 mg DAILY PRN RECTAL 05/27/17 03:30 (Lactulose Liq) 30 ml DAILY PRN PO 05/27/17 03:30 (Lipitor) 20 mg HS PO 05/27/17 21:00 05/27/17 20:49 (Lioresal) 10 mg BID PO 05/27/17 09:00 05/27/17 20:49 (Neurontin) 600 mg BID PO 05/27/17 09:00 05/27/17 20:50 (Synthroid) 150 mcg DAILY@0700 PO 05/27/17 07:00 05/27/17 04:46 (Cozaar) 100 mg DAILY PO 05/27/17 09:00 05/27/17 08:08 (Catapres) 0.1 mg Q6H PRN PO 05/27/17 08:00 (Ocuflox 0.3% Opth Soln) 5 drop DAILY LEFT EAR 05/27/17 09:30 05/27/17 11:17 (Flomax) 0.4 mg DAILY PO 05/28/17 09:00 A/P Problem List: (1) Bilateral lower extremity edema ICD Code: R60.0 - Localized edema Status: Acute (2) Otitis externa ICD Code: H60.90 - Unspecified otitis externa, unspecified ear (3) Total self-care deficit ICD Code: R41.89 - Other symptoms and signs involving cognitive functions and awareness Assessment and Plan Bilateral LE Edema with associated SOB: no h/o CHF -CXR w/ hilar prominence. on 6L oxygen at home, unclear history. Will obtain Chest CT for further evaluation. -BNP 59 -s/p Lasix 20mg IV in ER, monitor I/O and electrolytes -Echo pending -Trop negative, no c/o chest pain -continue supplemental oxygen, patient uses 6LNC at home, currently satting 96% on 3L Hypertension, uncontrolled -BP 182/104, improved -continue patient on home dose of Cozaar 100mg daily -Clonidine with parameters prn -monitor BP and adjust treatment accordingly Otitis Externa: recent ER eval 05/20/17, +otitis externa -continue Ofloxacin gtts Total Self Care Deficit: pt w/ h/o Cerebral Palsy, Hearing/Vision Loss w/ progressive decline in function -Unable to care for self, unsafe d/c back to [facility]. Patient has a service animal. -Case Management recommending admission for placement. -continue PT/OT -Continue on home dose of gabapentin and baclofen Hypothyroidism -continue on home dose of Levothyroxine 150mcg daily -TSH level 0.473 Dysuria Hesitancy -UA unremarkable -started on Flomax 0.4mg daily, continue Anemia, normocytic, normochromic -iron studies c/w ALEXIS - iron 40, TIBC 452, % sat 8.8, ferritin 16 -start on po ferrous sulfate with vitamin C -obtain stool for hemoccult testing -monitor H/H DVT Prophylaxis: SCD/Teds. Heparin sq Discharge Planning Pending clinical improvement and safe discharge plan. Likely discharge tomorrow. Sylvia Waite May 28, 2017 07:41
[2017-05-28 08:24] LABS: BASOPHIL % 0.8 % (0.0-2.0); EOSINOPHIL # 0.3 TH/MM3 (0-0.4); EOSINOPHIL % 5.6 % (0.0-4.0); HEMATOCRIT 38.6 % (39.0-51.0); HEMOGLOBIN 12.4 GM/DL (13.0-17.0); LYMPH % 23.1 % (9.0-44.0); LYMPHOCYTE # 1.1 TH/MM3 (1.0-4.8); MEAN CELL VOLUME 86.6 FL (80.0-100.0); MEAN CORPUSCULAR HEMOGLOBIN 27.9 PG (27.0-34.0); MEAN CORPUSCULAR HGB CONC 32.3 % (32.0-36.0); MEAN PLATELET VOLUME 8.8 FL (7.0-11.0); MONO % 8.8 % (0.0-8.0); MONOCYTE # 0.4 TH/MM3 (0-0.9); NEUT % 61.7 % (16.0-70.0); PLATELET COUNT 185 TH/MM3 (150-450); RED BLOOD COUNT 4.46 MIL/MM3 (4.50-5.90); RED CELL DISTRIBUTION WIDTH 14.1 % (11.6-17.2); WHITE BLOOD COUNT 4.8 TH/MM3 (4.0-11.0)
[2017-05-28 08:35] VITALS: BP 148/82; PULSE 74; RESP 16; TEMP 98; O2SAT 96
[2017-05-28] MEDS: GABAPENTIN 300 MG CAP PO SCH ×2 (08:44→23:09)
[2017-05-28] MEDS: TAMSULOSIN HCL 0.4 MG CAP PO SCH (08:44)
[2017-05-28] MEDS: LOSARTAN 50 MG TAB PO SCH (08:45)
[2017-05-28] MEDS: BACLOFEN 10 MG TAB PO SCH ×2 (08:45→23:08)
[2017-05-28] MEDS: DOCUSATE SODIUM 50 MG/SENNA 8.6 MG TAB PO SCH ×2 (08:45→23:09)
[2017-05-28] MEDS: LEVOTHYROXINE SODIUM 150 MCG TAB PO SCH (08:45)
[2017-05-28] MEDS: SODIUM CHLORIDE 0.9% FLUSH 10 ML FLUSH IV FLUSH SCH ×2 (08:46→21:00)
[2017-05-28] MEDS: OFLOXACIN 0.3% OPTH SOLN 5 ML BTL LEFT EAR SCH (08:47)
[2017-05-28 08:50] LABS: ALBUMIN 3.8 GM/DL (3.4-5.0); BICARBONATE 33.2 MEQ/L (21.0-32.0); BLOOD UREA NITROGEN 20 MG/DL (7-18); CALCIUM 9.2 MG/DL (8.5-10.1); CHLORIDE 101 MEQ/L (98-107); GLUCOSE,RANDOM 92 MG/DL (74-106); SODIUM (NA) 139 MEQ/L (136-145)
[2017-05-28 08:51] LABS: ALT (GPT) 15 U/L (12-78); AST (GOT) 7 U/L (15-37); CREATININE 0.89 MG/DL (0.60-1.30); GLOMERULAR FILTRATION RATE 86 ML/MIN (>89)
[2017-05-28 08:55] LABS: ALKALINE PHOSPHATASE 65 U/L (45-117); TOTAL BILIRUBIN ADULT 0.5 MG/DL (0.2-1.0); TOTAL PROTEIN 7.3 GM/DL (6.4-8.2)
[2017-05-28 09:32] LABS: IRON (FE) 40 MCG/DL (65-175)
[2017-05-28 09:41] LABS: % SATURATION IRON PROFILE 8.8 % (20-50); FERRITIN 16 NG/ML (26-388); TOTAL IRON BINDING CAPACITY 452 MCG/DL (250-450)
[2017-05-28] MEDS ORDERED: ASCORBIC ACID 500 MG TAB PO ONE (09:45)
[2017-05-28] MEDS ORDERED: FERROUS SULFATE 325 MG (65 MG ELEMENTAL IRON) TAB PO ONE (09:45)
[2017-05-28 13:24] VITALS: BP 132/89; PULSE 70; RESP 12; TEMP 97.9; O2SAT 96
[2017-05-28 15:57] VITALS: BP 143/87; PULSE 78; RESP 14; TEMP 98.1; O2SAT 98
--- NOTE | 2017-05-28 16:59 | ECHRPT ---
Indication: HEART FAILURE CONCLUSIONS Mildly dilated left ventricle. Mild concentric left ventricular hypertrophy. The left ventricular systolic function is low normal with an estimated ejection fraction in the rang e of 50- 55%. Trace mitral valve regurgitation. Posterior mitral valve leaflet prolapse. Aortic valve sclerosis is present. Trivial pulmonary valve regurgitation. BP: / HR: Rhythm: MEASUREMENTS (Male / Female) Normal Values Technical Quality: 2D ECHO LV Diastolic Diameter PLAX 5.1 cm 4.2 - 5.9 / 3.9 - 5.3 cm LV Systolic Diameter PLAX 3.6 cm IVS Diastolic Thickness 1.4 cm 0.6 - 1.0 / 0.6 - 0.9 cm LVPW Diastolic Thickness 0.9 cm 0.6 - 1.0 / 0.6 - 0.9 cm LV Relative Wall Thickness 0.4 LA Systolic Diameter LX 4.3 cm 3.0 - 4.0 / 2.7 - 3.8 cm M-MODE Aortic Root Diameter MM 3.6 cm AV Cusp Separation MM 1.9 cm DOPPLER Mitral E Point Velocity 62.9 cm/s Mitral A Point Velocity 79.6 cm/s Mitral E to A Ratio 0.8 TR Peak Velocity 229.0 cm/s TR Peak Gradient 21.0 mmHg FINDINGS LEFT VENTRICLE Mildly dilated left ventricle. Mild concentric left ventricular hypertrophy. The left ventricular systolic function is low normal with an estimated ejection fraction in the rang e of 50- 55%. RIGHT VENTRICLE Normal right ventricular size and systolic function. LEFT ATRIUM The left atrial size is normal. RIGHT ATRIUM The right atrial size is normal. ATRIAL SEPTUM Normal atrial septal thickness without atrial level shunting by limited color doppler interrogation. AORTA The aortic root and proximal ascending aorta are normal in size on limited imaging. MITRAL VALVE Trace mitral valve regurgitation. Posterior mitral valve leaflet prolapse. AORTIC VALVE Aortic valve sclerosis is present. TRICUSPID VALVE Structurally normal tricuspid valve. No tricuspid valve stenosis or regurgitation. PULMONARY VALVE Trivial pulmonary valve regurgitation. VESSELS The inferior vena cava is normal in size. PERICARDIUM No pericardial effusion. Wong Motta MD, FACC (Electronically Signed) Final Date:28 May 2017 16:57
[2017-05-28 20:00] VITALS: BP_SYST 116; BP_SYST 139; BP_DIAS 71; BP_DIAS 81; PULSE 62; PULSE 68; RESP 18; RESP 22; TEMP 97.7; TEMP 98.4; O2SAT 92; O2SAT 98
--- NOTE | 2017-05-28 20:50 | RADRPT ---
EXAM DATE/TIME: 05/28/2017 20:36 [facility] COMPARISON: CHEST SINGLE AP, May 26, 2017, 20:14. INDICATIONS : Dyspnea RADIATION DOSE: 7.78 CTDIvol (mGy) MEDICAL HISTORY : Congestive hearrt failure. Hypertension. SURGICAL HISTORY : None. ENCOUNTER: Initial ACUITY: 1 day PAIN SCALE: 0/10 LOCATION: chest TECHNIQUE: Volumetric scanning of the chest was performed. Using automated exposure control and adjustment of t he mA and/or kV according to patient size, radiation dose was kept as low as reasonably achievable to obtain optimal diagnostic quality images. DICOM format image data is available electronically for r eview and comparison. Follow-up recommendations for detected pulmonary nodules are based at a minimum on nodule size and pa tient risk factors according to Fleischner Society Guidelines. FINDINGS: Low lung volumes are diminished. There is moderate elevation of the right hemidiaphragm with associat ed atelectasis at the right base. A noncalcified 4 mm nodule is present in the right middle lobe. The re is compressive atelectasis in the right middle lobe and right lower lobe. No adenopathy. Coronary artery calcification is noted. The adrenals are normal. There are degenerative changes of the spine s een. CONCLUSION: Shallow lung volumes without evidence for concerning mass however a 4 mm noncalcified lung nodule is seen at the right lung base. Followup in 12 months recommended. Chris Hawthorne MD on May 28, 2017 at 20:46 Board Certified Radiologist. This report was verified electronically.
[2017-05-28] MEDS: ASCORBIC ACID 500 MG TAB PO SCH (23:08)
[2017-05-28] MEDS: FERROUS SULFATE 325 MG (65 MG ELEMENTAL IRON) TAB PO SCH (23:08)
[2017-05-28] MEDS: ACETAMINOPHEN/HYDROcodone 325 MG/10 MG TAB PO PRN (23:09)
[2017-05-28] MEDS: HEPARIN SODIUM - SQ 10,000 UNITS/ML VIAL SQ SCH (23:09)
[2017-05-28] MEDS: ATORVASTATIN 20 MG TAB PO SCH (23:09)
[2017-05-29] VITALS (7 sets, daily range): BP systolic 108–147; BP diastolic 69–87; PULSE 55–75; RESP 16–20; TEMP 98.2–98.8; O2SAT 93–97
[2017-05-29] MEDS: LEVOTHYROXINE SODIUM 150 MCG TAB PO SCH (06:40)
--- NOTE | 2017-05-29 07:55 | HHI.PR ---
Subjective Remarks Follow up on patient with BLE edema, unable to care for self, unsafe discharge back to [facility]. Patient seen and examined. Patient states his legs are much improved. Breathing is the same. Denies any fever or chills. Denies any chest pain. Denies any nausea, vomiting or abdominal pain. States he has not had a bowel movement in 4 days. Requesting something for heartburn which is chronic. Objective Vitals Vital Signs Date Time Temp Pulse Resp B/P (MAP) Pulse Ox O2 Delivery O2 Flow Rate FiO2 05/29/17 07:16 98.5 55 18 140/83 (102) 95 05/29/17 00:11 18 05/29/17 00:00 98.2 66 20 140/80 (100) 93 05/28/17 20:00 98.4 68 22 139/81 (100) 92 05/28/17 15:57 98.1 78 14 143/87 (105) 98 05/28/17 13:24 97.9 70 12 132/89 (103) 96 05/28/17 08:35 98.0 74 16 148/82 (104) 96 I/O 05/28/17 05/28/17 05/28/17 05/29/17 05/29/17 05/29/17 07:00 15:00 23:00 07:00 15:00 23:00 Intake Total 200 ml 200 ml Output Total 500 ml 650 ml Balance -300 ml 200 ml -650 ml Intake Oral 200 ml 200 ml Output Urine Total 500 ml 650 ml Result Diagram: 05/28/17 0751 05/28/17 0751 Imaging Last Impressions Chest CT 05/28/17 0000 Signed Impressions: Service Date/Time: Sunday, May 28, 2017 20:36 - CONCLUSION: Shallow lung volumes without evidence for concerning mass however a 4 mm noncalcified lung nodule is seen at the right lung base. Followup in 12 months recommended. Chris Hawthorne MD Chest X-Ray 05/26/171942 Signed Impressions: Service Date/Time: Friday, May 26, 2017 20:14 - CONCLUSION: Prominence of the left hilar region. Maurice Zayas MD Objective Remarks GENERAL: Well developed well nourished male patient, in no acute distress. Hearing/vision impaired. Awake and alert. Lying in bed. HEENT: PERRLA, EOMI. No scleral icterus or conjunctival pallor. On 3LNC. CARDIOVASCULAR: Regular rate and rhythm. No obvious murmurs to auscultation. No chest tenderness to palpation. RESPIRATORY: No obvious rhonchi or wheezing. Clear to auscultation. Breath sounds equal bilaterally. GASTROINTESTINAL: Abdomen soft, non-tender, nondistended. BS normal. MUSCULOSKELETAL: Extremities without clubbing, cyanosis. BLE with nonpitting edema. No obvious deformities. NEUROLOGICAL: Awake, alert and oriented x4. No focal neurologic deficits. Moves all extremities spontaneously. Medications and IVs Current Medications Medications (Trade) Dose Ordered Sig/Jacquie Route Start Time Stop Time Status Last Admin (NS Flush) 2 ml UNSCH PRN IVF 05/26/17 19:45 (NS Flush) 2 ml UNSCH PRN IV FLUSH 05/27/17 03:30 (NS Flush) 2 ml BID IV FLUSH 05/27/17 09:00 05/28/17 08:46 (Zofran Inj) 4 mg Q6H PRN IVP 05/27/17 03:30 (Tylenol) 650 mg Q6H PRN PO 05/27/17 03:30 (Newton 5-325 Mg) 1 tab Q4H PRN PO 05/27/17 03:30 (Newton 10-325 Mg) 1 tab Q4H PRN PO 05/27/17 03:30 05/28/17 23:09 (Ny-Colace) 1 tab BID PO 05/27/17 09:00 05/28/17 23:09 (Milk Of Magnesia Liq) 30 ml Q12H PRN PO 05/27/17 03:30 (Senokot) 17.2 mg Q12H PRN PO 05/27/17 03:30 (Dulcolax Supp) 10 mg DAILY PRN RECTAL 05/27/17 03:30 (Lactulose Liq) 30 ml DAILY PRN PO 05/27/17 03:30 (Lipitor) 20 mg HS PO 05/27/17 21:00 05/28/17 23:09 (Lioresal) 10 mg BID PO 05/27/17 09:00 05/28/17 23:08 (Neurontin) 600 mg BID PO 05/27/17 09:00 4/1/18 23:09 (Synthroid) 150 mcg DAILY@0700 PO 05/27/17 07:00 05/29/17 06:40 (Cozaar) 100 mg DAILY PO 05/27/17 09:00 05/28/17 08:45 (Catapres) 0.1 mg Q6H PRN PO 05/27/17 08:00 (Ocuflox 0.3% Opth Soln) 5 drop DAILY LEFT EAR 05/27/17 09:30 05/28/17 08:47 (Flomax) 0.4 mg DAILY PO 05/28/17 09:00 05/28/17 08:44 (Ferrous Sulfate) 325 mg BID PO 05/28/17 21:00 05/28/17 23:08 (Vitamin C) 250 mg BID PO 05/28/17 21:00 05/28/17 23:08 (Heparin Inj) 5,000 units Q12HR SQ 05/28/17 21:00 05/28/17 23:09 A/P Problem List: (1) Bilateral lower extremity edema ICD Code: R60.0 - Localized edema Status: Acute (2) Otitis externa ICD Code: H60.90 - Unspecified otitis externa, unspecified ear (3) Total self-care deficit ICD Code: R41.89 - Other symptoms and signs involving cognitive functions and awareness Assessment and Plan Mitral Valve Prolapse -Echo reveals EF 50-55%, mildly dilated left ventricle, posterior mitral valve prolapse, aortic sclerosis -episodes of bradycardia. Persistent dyspnea -Consult cardiology, appreciate recommendations Bilateral LE Edema with associated SOB: no h/o CHF -CXR w/ hilar prominence. on 6L oxygen at home, unclear history. -BNP 59 -s/p Lasix 20mg IV in ER, monitor I/O and electrolytes -Chest CT shows compressive atelectasis, 4mm lung nodule. IS and acapella ordered. -Trop negative, no c/o chest pain -continue supplemental oxygen, patient uses 6LNC at home, currently satting 95% on 3L Hypertension, uncontrolled -BP 182/104, improved now 140/83 -continue patient on home dose of Cozaar 100mg daily -Clonidine with parameters prn -monitor BP and adjust treatment accordingly Otitis Externa: recent ER eval 05/20/17, +otitis externa -continue Ofloxacin gtts Total Self Care Deficit: pt w/ h/o Cerebral Palsy, Hearing/Vision Loss w/ progressive decline in function -Unable to care for self, unsafe d/c back to [facility]. Patient has a service animal. -Case Management recommending admission for placement. -continue PT/OT - recommends rehab -Continue on home dose of gabapentin and baclofen Hypothyroidism -continue on home dose of Levothyroxine 150mcg daily -TSH level 0.473 Dysuria Hesitancy -UA unremarkable -started on Flomax 0.4mg daily, continue Anemia, normocytic, normochromic -iron studies c/w ALEXIS - iron 40, TIBC 452, % sat 8.8, ferritin 16 -started on po ferrous sulfate with vitamin C, continue -obtain stool for hemoccult testing/pending -monitor H/H Incidental finding 4mm noncalcified lung nodule right lung base -recommend repeat imaging in 12 months Constipation -no BM x 4 days -continue on Ny Colace -add Miralax and Dulcolax supp now -monitor for BM GERD -PPI DVT Prophylaxis: SCD/Teds. Heparin sq Discharge Planning Pending clinical improvement and cardiology clearance. Possible discharge later today. Sylvia Waite May 29, 2017 07:55
[2017-05-29] MEDS: HEPARIN SODIUM - SQ 10,000 UNITS/ML VIAL SQ SCH ×2 (09:00→21:09)
[2017-05-29] MEDS: SODIUM CHLORIDE 0.9% FLUSH 10 ML FLUSH IV FLUSH SCH ×2 (09:14→21:10)
[2017-05-29] MEDS: OFLOXACIN 0.3% OPTH SOLN 5 ML BTL LEFT EAR SCH (09:14)
[2017-05-29] MEDS: GABAPENTIN 300 MG CAP PO SCH ×2 (09:15→21:09)
[2017-05-29] MEDS: DOCUSATE SODIUM 50 MG/SENNA 8.6 MG TAB PO SCH ×2 (09:15→21:09)
[2017-05-29] MEDS: ASCORBIC ACID 500 MG TAB PO SCH ×2 (09:16→21:10)
[2017-05-29] MEDS: TAMSULOSIN HCL 0.4 MG CAP PO SCH (09:18)
[2017-05-29] MEDS: FERROUS SULFATE 325 MG (65 MG ELEMENTAL IRON) TAB PO SCH ×2 (09:18→21:09)
[2017-05-29] MEDS: LOSARTAN 50 MG TAB PO SCH (09:20)
[2017-05-29] MEDS: BACLOFEN 10 MG TAB PO SCH ×2 (09:22→21:09)
[2017-05-29] MEDS ORDERED: BISACODYL 10 MG SUPP RECTAL ONE (13:30)
[2017-05-29] MEDS ORDERED: ALUMINUM/MAGNESIUM/SIMETH 30 ML CUP PO ONE (13:30)
[2017-05-29] MEDS ORDERED: PANTOPRAZOLE SOD 40 MG DELAYED RELEASE TAB PO ONE (13:30)
[2017-05-29] MEDS ORDERED: POLYETHYLENE GLYCOL 17 GM PKG PO ONE (13:30)
--- NOTE | 2017-05-29 14:54 | MB ---
cc: Hector Epps MD DATE: 05/29/2017 REASON FOR CONSULTATION: Mitral valve prolapse, shortness of breath. HISTORY OF PRESENT ILLNESS: The patient is a 62-year-old white male with a history of cerebral palsy, hypertension, hyperlipidemia, hypothyroidism, who presented to the hospital with complaints of increased shortness of breath and pedal edema. The patient states for about the past several months he has been having periodic dyspnea on exertion. He believes he also has some episodes of paroxysmal nocturnal dyspnea. In the last couple of weeks he has had trouble with increased pedal edema, which has nearly resolved here in the hospital. He denies chest pain, palpitations, dizziness, syncope, near syncope, fevers, cough. PAST MEDICAL HISTORY: 1. Cerebral palsy. 2. Hypothyroidism. 3. Hyperlipidemia. 4. Hypertension. PAST SURGICAL HISTORY: 1. Hernia surgery. 2. Eye surgery. CARDIAC MEDICATIONS AT HOME: 1. Losartan 100 mg daily. 2. Atorvastatin 20 mg at bedtime. ALLERGIES: NO KNOWN DRUG ALLERGIES. FAMILY HISTORY: Noncontributory. SOCIAL HISTORY: The patient denies any history of alcohol or tobacco abuse. REVIEW OF SYSTEMS: As in the history of present illness, otherwise negative or noncontributory. He also denies headache, melena, dyspepsia, bright red blood per rectum. PHYSICAL EXAMINATION: VITAL SIGNS: His blood pressure is 137/80 with a pulse of 70, respirations are 14. GENERAL: He is a well-developed, well-nourished white male, in no acute distress. NECK: Jugular venous pressure is normal. Carotid pulses are 2+ bilaterally and without bruits. CHEST: Reveals clear lungs jules. CARDIAC: He has a regular rhythm and rate with a grade 1-2/6 mid to late systolic murmur heard at the apex. No definite gallop is audible. ABDOMEN: He has a soft, nontender abdomen. Bowel sounds are present. There is no definite hepatosplenomegaly. EXTREMITIES: Examination reveals no clubbing or cyanosis. There is trace pretibial edema bilaterally. LABORATORY DATA: EKG shows sinus rhythm, left axis deviation. Chest x-ray shows left hilar prominence. LABORATORY DATA: Includes a WBC 4.8, hemoglobin 12.4, platelets 185. Potassium 3.6, BUN 20, creatinine 0.89. CK 84. Troponin less than 0.02. ASSESSMENT AND PLAN: Overall, stable cardiac status in this 62-year-old white male with history of cerebral palsy, hyperlipidemia, hypertension, mitral valve prolapse diagnosed by echo this admission. Overall, the etiology of his dyspnea does not appear to be cardiac in origin. There is no other evidence for congestive heart failure. His echocardiogram has been reviewed. I would disagree with the interpretation that the left ventricle is mildly dilated. It appears to be of normal size and function. Indeed, there is moderate prolapse of the posterior mitral leaflet, associated with only mild mitral regurgitation. He does have periodic mild bradycardia here on monitoring. Overall, I doubt the mild bradycardia is contributing to any symptomatology. RECOMMENDATIONS: 1. No additional cardiac workup at this time. 2. Repeat echocardiogram in about a year to reassess his mitral valve function. MD WAYNE Louise/VALARIE , 02:36 PM , 02:53 PM ANDREW
[2017-05-29] MEDS ORDERED: TAMS5CAP PO (16:25)
[2017-05-29] MEDS ORDERED: PANT40TA3 PO (16:25)
[2017-05-29] MEDS ORDERED: ASCO500 PO (16:25)
[2017-05-29] MEDS ORDERED: FERR325T20 PO (16:25)
--- NOTE | 2017-05-29 16:27 | HHI.DS ---
Discharge Summary Admission Date May 27, 2017 at 03:31 Discharge Date: May 29, 2017 Admitting Diagnosis periperal edema mild CHF (1) Bilateral lower extremity edema ICD Code: R60.0 - Localized edema Status: Acute (2) Otitis externa ICD Code: H60.90 - Unspecified otitis externa, unspecified ear (3) Total self-care deficit ICD Code: R41.89 - Other symptoms and signs involving cognitive functions and awareness Brief History - From Admission This is a 62-year-old male with a PMH of Cerebral Palsy, HTN, Hyperlipidemia and Hearing/Vision Loss who was brought to the ER by EMS after pt unable to get out of chair. Pt reports worsening lower extremity edema and unable to get around on his own. Was seen in ER on 05/20/17 for similar complaints, found to have Otitis Externa, given antibiotic drops and d/c'd back to [facility] under the care of [facility]. Today, pt called [employer] as he was unable to get up and can't take care of self. On arrival, BP 137/81, HR 73, O2 sat 94% on RA , Afebrile. CBC unremarkable. Chemistry essentially unremarkable. Troponin negative. INR 1.1. CXR with prominence of left hilar region. S/p Lasix IV in ER. Case Management consulted, pt unable to be d/c'd back to [facility] as unable to care for self, unsafe d/c at this time. CBC/BMP: 05/28/17 0751 05/28/17 0751 Significant Findings Laboratory Tests Test 05/26/17 19:50 05/27/17 10:30 05/28/17 07:51 Red Blood Count 3.98 MIL/MM3 (4.50-5.90) 4.46 MIL/MM3 (4.50-5.90) Hemoglobin 11.1 GM/DL (13.0-17.0) 12.4 GM/DL (13.0-17.0) Hematocrit 34.4 % (39.0-51.0) 38.6 % (39.0-51.0) Monocytes (%) (Auto) 9.3 % (0.0-8.0) 8.8 % (0.0-8.0) Blood Urea Nitrogen 22 MG/DL (7-18) 20 MG/DL (7-18) Aspartate Amino Transf (AST/SGOT) 13 U/L (15-37) 7 U/L (15-37) Carbon Dioxide Level 32.4 MEQ/L (21.0-32.0) 33.2 MEQ/L (21.0-32.0) Estimat Glomerular Filtration Rate 88 ML/MIN (>89) 86 ML/MIN (>89) Troponin I LESS THAN 0.02 NG/ML Urine Mucus FEW /lpf (OCC) Eosinophils (%) (Auto) 5.6 % (0.0-4.0) Iron Level 40 MCG/DL (65-175) Total Iron Binding Capacity 452 MCG/DL (250-450) Percent Iron Saturation 8.8 % (20-50) Ferritin 16 NG/ML (26-388) PE at Discharge GENERAL: Well developed well nourished male patient, in no acute distress. Hearing/vision impaired. Awake and alert. Lying in bed. HEENT: PERRLA, EOMI. No scleral icterus or conjunctival pallor. On 3LNC. CARDIOVASCULAR: Regular rate and rhythm. No obvious murmurs to auscultation. No chest tenderness to palpation. RESPIRATORY: No obvious rhonchi or wheezing. Clear to auscultation. Breath sounds equal bilaterally. GASTROINTESTINAL: Abdomen soft, non-tender, nondistended. BS normal. MUSCULOSKELETAL: Extremities without clubbing, cyanosis. BLE with nonpitting edema. No obvious deformities. NEUROLOGICAL: Awake, alert and oriented x4. No focal neurologic deficits. Moves all extremities spontaneously. Pt Condition on Discharge: Stable Discharge Disposition: Disch w/ Home Health Serv Discharge Instructions DIET: Follow Instructions for: Heart Healthy Diet Activities you can perform: See Additionl Instruction Other Activity Instructions: per PT recommendations Sylvia Waite May 29, 2017 16:27
[2017-05-29] MEDS ORDERED: SOD PHOSPHATE/SOD BIPHOSPHATE (ADULT) ENEMA 133ML RECTAL ONE (17:00)
[2017-05-29] MEDS: ATORVASTATIN 20 MG TAB PO SCH (21:10)
[2017-05-30 03:57] VITALS: BP 99/60; PULSE 77; RESP 16; TEMP 98.5; O2SAT 97
[2017-05-30] MEDS: LEVOTHYROXINE SODIUM 150 MCG TAB PO SCH (06:33)
[2017-05-30 08:29] VITALS: O2SAT 94
[2017-05-30 08:50] VITALS: BP 135/82; PULSE 65; RESP 18; TEMP 97.8; O2SAT 95
[2017-05-30] MEDS: SODIUM CHLORIDE 0.9% FLUSH 10 ML FLUSH IV FLUSH SCH (09:00)
[2017-05-30] MEDS ORDERED: PANTOPRAZOLE SOD 40 MG DELAYED RELEASE TAB PO SCH (09:00)
[2017-05-30] MEDS: OFLOXACIN 0.3% OPTH SOLN 5 ML BTL LEFT EAR SCH (09:00)
[2017-05-30] MEDS: HEPARIN SODIUM - SQ 10,000 UNITS/ML VIAL SQ SCH (11:08)
[2017-05-30] MEDS: FERROUS SULFATE 325 MG (65 MG ELEMENTAL IRON) TAB PO SCH (11:08)
[2017-05-30] MEDS: LOSARTAN 50 MG TAB PO SCH (11:09)
[2017-05-30] MEDS: TAMSULOSIN HCL 0.4 MG CAP PO SCH (11:09)
[2017-05-30] MEDS: ASCORBIC ACID 500 MG TAB PO SCH (11:09)
[2017-05-30] MEDS: DOCUSATE SODIUM 50 MG/SENNA 8.6 MG TAB PO SCH (11:09)
[2017-05-30] MEDS: BACLOFEN 10 MG TAB PO SCH (11:10)
[2017-05-30] MEDS: GABAPENTIN 300 MG CAP PO SCH (11:10)
[2017-05-30 11:20] VITALS: BP 146/66; PULSE 94; RESP 16; TEMP 98.1; O2SAT 95
--- NOTE | 2017-05-30 13:45 | HHI.DS ---
Discharge Summary Admission Date May 27, 2017 at 3:31 am Discharge Date: May 30, 2017 Admitting Diagnosis periperal edema mild CHF (1) Bilateral lower extremity edema ICD Code: R60.0 - Localized edema Status: Acute (2) Otitis externa ICD Code: H60.90 - Unspecified otitis externa, unspecified ear (3) Total self-care deficit ICD Code: R41.89 - Other symptoms and signs involving cognitive functions and awareness Procedures None. Brief History - From Admission This is a 62-year-old male with a PMH of Cerebral Palsy, HTN, Hyperlipidemia and Hearing/Vision Loss who was brought to the ER by EMS after pt unable to get out of chair. Pt reports worsening lower extremity edema and unable to get around on his own. Was seen in ER on 05/20/17 for similar complaints, found to have Otitis Externa, given antibiotic drops and d/c'd back to [facility] under the care of [facility]. Today, pt called [employer] as he was unable to get up and can't take care of self. On arrival, BP 137/81, HR 73, O2 sat 94% on RA , Afebrile. CBC unremarkable. Chemistry essentially unremarkable. Troponin negative. INR 1.1. CXR with prominence of left hilar region. S/p Lasix IV in ER. Case Management consulted, pt unable to be d/c'd back to [facility] as unable to care for self, unsafe d/c at this time. CBC/BMP: 05/28/17 0751 05/28/17 0751 Significant Findings Laboratory Tests Test 05/28/17 07:51 Red Blood Count 4.46 MIL/MM3 (4.50-5.90) Hemoglobin 12.4 GM/DL (13.0-17.0) Hematocrit 38.6 % (39.0-51.0) Monocytes (%) (Auto) 8.8 % (0.0-8.0) Eosinophils (%) (Auto) 5.6 % (0.0-4.0) Blood Urea Nitrogen 20 MG/DL (7-18) Aspartate Amino Transf (AST/SGOT) 7 U/L (15-37) Carbon Dioxide Level 33.2 MEQ/L (21.0-32.0) Estimat Glomerular Filtration Rate 86 ML/MIN (>89) Iron Level 40 MCG/DL (65-175) Total Iron Binding Capacity 452 MCG/DL (250-450) Percent Iron Saturation 8.8 % (20-50) Ferritin 16 NG/ML (26-388) Imaging Last Impressions Chest CT 05/28/17 0000 Signed Impressions: Service Date/Time: Sunday, May 28, 2017 20:36 - CONCLUSION: Shallow lung volumes without evidence for concerning mass however a 4 mm noncalcified lung nodule is seen at the right lung base. Followup in 12 months recommended. Chris Hawthorne MD Chest X-Ray 05/26/17 194 Signed Impressions: Service Date/Time: Friday, May 26, 2017 20:14 - CONCLUSION: Prominence of the left hilar region. Maurice Zayas MD PE at Discharge GENERAL: Well developed well nourished male patient, in no acute distress. Hearing/vision impaired. Awake and alert. Lying in bed. HEENT: PERRLA, EOMI. No scleral icterus or conjunctival pallor. On 3LNC. CARDIOVASCULAR: Regular rate and rhythm. No obvious murmurs to auscultation. No chest tenderness to palpation. RESPIRATORY: No obvious rhonchi or wheezing. Clear to auscultation. Breath sounds equal bilaterally. GASTROINTESTINAL: Abdomen soft, non-tender, nondistended. BS normal. MUSCULOSKELETAL: Extremities without clubbing, cyanosis. BLE with nonpitting edema. No obvious deformities. NEUROLOGICAL: Awake, alert and oriented x4. No focal neurologic deficits. Moves all extremities spontaneously. Pt update on day of discharge Follow up for edema, SOB, constipation. The patient reports his breathing is back to baseline and lower extremity edema improved. He reports a large BM yesterday after enema. He denies any further constipation or abdominal pain. He is tolerating oral intake. He denies any other medical complaints at this time. He wants to go back home to his [facility]. Hospital Course Bilateral LE Edema with associated SOB. No hx of CHF however hx of Mitral Valve Prolapse.Patient presented with persistent dyspnea. CXR w/ hilar prominence. BNP 59. Chest CT shows compressive atelectasis, 4mm lung nodule. IS and acapella ordered. Echo reveals EF 50-55%, mildly dilated left ventricle, posterior mitral valve prolapse, aortic sclerosis. Consult cardiology, no further cardiac work up at this time, recommended repeat echo in 1 year. Patient was given IV Lasix 20mg x1. Troponin negative, no complaints of chest pain. He was continued on oxygen, patient reportedly uses 6L NC at [facility], however O2 sats stable on 3L NC. Patient's symptoms improved, stable for discharge. Hypertension, uncontrolled: BP initially 182/104, improved now 140/83. Continued patients home dose of Cozaar 100mg daily. Clonidine prn. BP much improved at discharge. Otitis Externa: recent ER eval 05/20/17, +otitis externa. Given Ofloxacin gtts. Total Self Care Deficit: pt w/ h/o Cerebral Palsy, Hearing/Vision Loss w/ progressive decline in function. Unable to care for self. Patient has a service animal. 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 Hypothyroidism: TSH level 0.473. continue on home dose of Levothyroxine 150mcg daily Dysuria/Hesitancy: UA unremarkable. Started on Flomax 0.4mg daily, continue Anemia, normocytic, normochromic. Iron studies c/w ALEXIS - iron 40, TIBC 452, % sat 8.8, ferritin 16. Started on po ferrous sulfate with vitamin C. H&H stable. Incidental finding 4mm noncalcified lung nodule right lung base. Recommend repeat imaging in 12 months Constipation: no reported BM x 4 days. Given Ny Colace, Miralax, Dulcolax, with no relief, therefore added fleet enema. Patient with large BM prior to discharge. Resolved. Pt Condition on Discharge: Stable Discharge Disposition: [facility] with [facility] Discharge Time: > 30 minutes Discharge Instructions DIET: Follow Instructions for: Heart Healthy Diet Activities you can perform: See Additionl Instruction Other Activity Instructions: per PT recommendations Follow up Referrals: Cardiology - 1 Year Gastroenterology - 1 Week PCP Follow-up - 2-3 Days New Orders: 2D ECHO - [address] THORAX W CONTRAST (CHEST) - 1 Year New Medications: Ascorbic Acid (Sm Chewable C) 500 Mg Chw 250 MG PO BID for Anemia, #30 EA Ferrous Sulfate (Ferosul) 325 Mg (65 Mg Iron) Tablet 325 MG PO BID for Anemia, #60 TAB Pantoprazole (Pantoprazole) 40 Mg Tab 40 MG PO DAILY for Reflux, #30 TAB Tamsulosin (Flomax) 0.4 Mg Cap 0.4 MG PO DAILY for Enlarged prostate, #30 CAP Continued Medications: Atorvastatin (Atorvastatin) 20 Mg Tab 20 MG PO HS for Cholesterol Management, #30 TAB 0 Refills Baclofen (Baclofen) 10 Mg Tab 10 MG PO BID for Muscle Spasm, TAB 0 Refills Gabapentin (Gabapentin) 600 Mg Tab 600 MG PO BID, #60 TAB 0 Refills Ibuprofen (Ibuprofen) 800 Mg Tab 800 MG PO TID for Arthritis Pain, TAB 0 Refills Levothyroxine (Levothyroxine) 150 Mcg Tab 150 MCG PO DAILY for Thyroid, #30 TAB 0 Refills Losartan (Losartan) 100 Mg Tab 100 MG PO DAILY for Blood Pressure Management, #30 TAB 0 Refills Ofloxacin Otic Drops (Ofloxacin Otic Drops) 0.3 % Drops 5 DROP LEFT EAR DAILY for Infection for 7 Days, #1 BOTTLE 0 Refills Tami Marroquin PA-C May 30, 2017 1:45 pm
--- NOTE | 2017-05-30 16:33 | HHI.FF ---
Face to Face Verification Diagnosis: (1) Bilateral lower extremity edema (2) Total self-care deficit (3) Mitral valve prolapse determined by imaging (4) Pulmonary nodule (5) Impaired mobility and ADLs (6) Otitis externa Physical Therapy Order: Evaluate and Treat, Improve ambulation, Strength and gait training Occupational Therapy Order: Evaluate and Treat, Improve ADL Home Health Nursing Order: Medical education Signs/symptoms of disease process Nursing assessment with vital signs Insights Analyst Order: To Evaluate: Support services Order: To Provide: Long range planning, Community services I have seen patient Armand Zhang on 05/30/17. My clinical findings support the need for the requested home health care services because: Ltd mobility - disease progression Patient has SOB Deconditioned w/ increased weakness Med compliance is questionable Limited ability to care for self Need for psychosocial assistance Impaired cognition/judgement I certify that my clinical findings support that this patient is homebound because: Impaired cognitive ability/safety Unsteady gait/balance Unsafe to leave home unassisted Unable to use public transportation Tami Marroquin PA-C May 30, 2017 4:33 pm
== END 2017-05-30 15:39 ==
LOC: NEDAMB 17:57 → NEDA 05-27 03:31 → NEPHCDU 05-27 04:23
PROVIDERS: ADMIT Internal Medicine; ATTEND Internal Medicine
DX: R60.0 Localized edema (principal); R26.9 Unspecified abnormalities of gait and mobility; I10 Essential (primary) hypertension; R06.02 Shortness of breath; R41.89 Other symptoms and signs involving cognitive functions and awareness; E78.00 Pure hypercholesterolemia, unspecified; E07.9 Disorder of thyroid, unspecified; D64.9 Anemia, unspecified; K21.9 Gastro-esophageal reflux disease without esophagitis; N40.0 Benign prostatic hyperplasia without lower urinary tract symptoms; G80.9 Cerebral palsy, unspecified; E78.5 Hyperlipidemia, unspecified; H60.92 Unspecified otitis externa, left ear; R06.09 Other forms of dyspnea; R30.0 Dysuria; R39.11 Hesitancy of micturition; R91.1 Solitary pulmonary nodule; K59.00 Constipation, unspecified; H54.7 Unspecified visual loss; H91.90 Unspecified hearing loss, unspecified ear; I34.1 Nonrheumatic mitral (valve) prolapse; E03.9 Hypothyroidism, unspecified
CPT/HCPCS: 71045; 71250; 80053; 81001; 82306; 82550; 82728; 83540; 83550; 83735; 83880; 84100; 84443; 84484; 85025; 85610; 85730; 93005; 93306; 94150; 94667; 94668; 96372; 97162; 97166; 99285; G0378; G8987; G8988; J1644

== ENCOUNTER 2017-07-17 08:09 | Inpatient (IN) | payer OTHER, MEDICAID, MEDICARE ==
[2017-07-17] VITALS (7 sets, daily range): BP systolic 113–167; BP diastolic 56–85; PULSE 77–95; RESP 16–18; TEMP 97.8–98.1; O2SAT 90–98
[~2017-07-17] VITALS: Ht 165.1 cm; Wt 82.8 kg
[~2017-07-17 08:09] MED LIST changes: +ASCO500 PO; +FERR325T20 PO; +PANT40TA3 PO; +TAMS5CAP PO
[2017-07-17] MEDS ORDERED: DOXY100C PO (08:33)
[2017-07-17] MEDS ORDERED: POTA10CA PO (08:33)
[2017-07-17] MEDS ORDERED: VENTAER INH (08:33)
[2017-07-17] MEDS ORDERED: FURO20TA PO (08:33)
--- NOTE | 2017-07-17 08:33 | PD ---
HPI Chief Complaint: Fall Time Seen by Provider: 08:28 Travel History International Travel<30 days: No Contact w/Intl Traveler<30days: No Traveled to known affect area: No History of Present Illness HPI This patient was sent from assisted living facility after he accidentally rolled out of bed. He struck his head on the ground. No LOC. No neck pain. He does have a moderate severity headache. He has laceration on the scalp. He denies other pain. Duration 1 hour. No alleviating factors. He takes no blood thinners. No exacerbating factors PFSH Past Medical History Cancer: No High Cholesterol: Yes Congestive Heart Failure: Yes Diabetes: No Diminished Hearing: Yes Hypertension: Yes Neurologic: Yes (cerebral palsy ) Psychiatric: No Thyroid Disease: Yes Tetanus Vaccination: > 5 Years Influenza Vaccination: No Past Surgical History Abdominal Surgery: Yes (HERNIA) Eye Surgery: Yes Other Surgery: Yes Social History Alcohol Use: No Tobacco Use: No Substance Use: No Allergies-Medications (Allergen,Severity, Reaction): Coded Allergies: No Known Allergies (Unverified , 07/17/17) Reported Meds & Prescriptions Reported Meds & Active Scripts Active Sm Chewable C (Ascorbic Acid) 500 Mg Chw 250 Mg PO BID Pantoprazole (Pantoprazole Sodium) 40 Mg Tab 40 Mg PO DAILY Flomax (Tamsulosin HCl) 0.4 Mg Cap 0.4 Mg PO DAILY Ofloxacin Otic Drops 0.3 % Drops 5 Drop LEFT EAR DAILY 7 Days Reported Ventolin Hfa 18 GM Inh (Albuterol Sulfate) 90 Mcg/Act Aer 2 Puff INH Q6H PRN Doxycycline Hyclate 100 Mg Cap 100 Mg PO BID Furosemide 20 Mg Tab 20 Mg PO DAILY Potassium Chloride ER (Potassium Chloride) 10 Meq Cap 10 Meq PO DAILY Levothyroxine (Levothyroxine Sodium) 150 Mcg Tab 150 Mcg PO DAILY Losartan (Losartan Potassium) 100 Mg Tab 100 Mg PO DAILY Gabapentin 600 Mg Tab 600 Mg PO BID Baclofen 10 Mg Tab 10 Mg PO BID Atorvastatin (Atorvastatin Calcium) 20 Mg Tab 20 Mg PO HS Review of Systems General / Constitutional: No: Fever Eyes: No: Visual changes HENT: Positive: Headaches Cardiovascular: No: Chest Pain or Discomfort Respiratory: No: Shortness of Breath Gastrointestinal: No: Abdominal Pain Genitourinary: No: Dysuria Musculoskeletal: No: Pain Skin: No Rash Neurologic: Positive: Headache, No: Weakness Psychiatric: No: Depression Endocrine: No: Polydipsia Hematologic/Lymphatic: No: Easy Bruising Physical Exam Narrative GENERAL: Well-nourished, well-developed patient in no apparent distress. SKIN: Focused skin assessment reveals no rash and nodules. Skin is Warm and dry. HEAD: Has a 2 cm laceration to the right frontal scalp. Normocephalic. EYES: Pupils equal and round. No scleral icterus. No injection or drainage. ENT: No nasal bleeding or discharge. Mucous membranes pink and moist. NECK: Trachea midline. No JVD. No midline tenderness CARDIOVASCULAR: Regular rate and rhythm. No murmur appreciated. RESPIRATORY: No accessory muscle use. Clear to auscultation. Breath sounds equal bilaterally. GASTROINTESTINAL: Abdomen soft, non-tender, nondistended. Hepatic and splenic margins not palpable. MUSCULOSKELETAL: No obvious deformities. No clubbing. No cyanosis. No edema. NEUROLOGICAL: Awake and alert. No obvious cranial nerve deficits. Motor grossly within normal limits. Normal speech. PSYCHIATRIC: Appropriate mood and affect; insight and judgment reasonable . Data Data Last Documented VS Vital Signs Date Time Temp Pulse Resp B/P (MAP) Pulse Ox O2 Delivery O2 Flow Rate FiO2 07/17/17 08:19 77 16 93 Nasal Cannula 4.00 07/17/17 08:16 98.1 145/79 (101) Orders Orders Ct Brain W/O Iv Contrast(Rout) (07/17/17 ) [facility] Medical Decision Making Medical Screen Exam Complete: Yes Emergency Medical Condition: Yes Medical Record Reviewed: Yes Differential Diagnosis Intracranial hemorrhage, skull fracture, concussion Narrative Course I have reviewed the patient's electronic medical record. Reviewed his usp paperwork and his medication list Patient is no neurologic deficit Brain CT is ordered and is normal LACERATION LOCATION: Right frontal scalp LENGTH: 2 cm NUMBER OF STITCHES/ARACELIS: Dermabond used REPAIR: The area of the laceration was prepped with Betadine and sterilely draped. No anesthesia needed . The wound was copiously irrigated and explored without evidence of foreign body, tendon injury or neurovascular injury. The wound was closed using Dermabond. This was a single layer repair. Patient tolerated the procedure well. Diagnosis Primary Impression: Head injury due to trauma Qualified Codes: S09.90XA - Unspecified injury of head, initial encounter Additional Impressions: Headache Qualified Codes: G44.319 - Acute post-traumatic headache, not intractable Scalp laceration Qualified Codes: S01.01XA - Laceration without foreign body of scalp, initial encounter Additional Instructions: Follow-up with facility MD Med/Other Pt SpecificInfo: Other Disposition: 01 DISCHARGE HOME Condition: Stable Dani Perry MD July 17, 2017 08:33
--- NOTE | 2017-07-17 09:00 | RADRPT ---
EXAM DATE/TIME: 07/17/2017 08:47 [facility] COMPARISON: No previous studies available for comparison. INDICATIONS : Patient fell off bed, hitting head, laceration right forehead. RADIATION DOSE: 40.15 CTDIvol (mGy) ; Patient motion MEDICAL HISTORY : Hypertension. cerebral palsy SURGICAL HISTORY : None. ENCOUNTER: Initial ACUITY: 1 day PAIN SCALE: 0/10 LOCATION: cranial TECHNIQUE: Multiple contiguous axial images were obtained of the head. Using automated exposure control and adj ustment of the mA and/or kV according to patient size, radiation dose was kept as low as reasonably a chievable to obtain optimal diagnostic quality images. DICOM format image data is available electro nically for review and comparison. FINDINGS: There is an old lacunar infarct involving the right caudate head. There is no evidence of intracrania l mass or hemorrhage. There is nothing to suggest acute infarction or acute injury. The extracranial structures are benign and intact. CONCLUSION: No acute intracranial injury Maurice Worthington MD on July 17, 2017 at 8:56 Board Certified Radiologist. This report was verified electronically.
[2017-07-17 11:44] LABS: AUTOMATED NEUTROPHIL # 4.2 TH/MM3 (1.8-7.7); BASOPHIL # 0.1 TH/MM3 (0-0.2); EOSINOPHIL # 0.3 TH/MM3 (0-0.4); EOSINOPHIL % 4.8 % (0.0-4.0); HEMATOCRIT 37.6 % (39.0-51.0); HEMOGLOBIN 12.3 GM/DL (13.0-17.0); LYMPH % 15.8 % (9.0-44.0); LYMPHOCYTE # 0.9 TH/MM3 (1.0-4.8); MEAN CELL VOLUME 90.9 FL (80.0-100.0); MEAN CORPUSCULAR HEMOGLOBIN 29.7 PG (27.0-34.0); MEAN CORPUSCULAR HGB CONC 32.7 % (32.0-36.0); MEAN PLATELET VOLUME 8.5 FL (7.0-11.0); MONO % 5.1 % (0.0-8.0); MONOCYTE # 0.3 TH/MM3 (0-0.9); NEUT % 73.3 % (16.0-70.0); PLATELET COUNT 147 TH/MM3 (150-450); RED BLOOD COUNT 4.13 MIL/MM3 (4.50-5.90); RED CELL DISTRIBUTION WIDTH 15.9 % (11.6-17.2); WHITE BLOOD COUNT 5.7 TH/MM3 (4.0-11.0)
[2017-07-17 11:57] LABS: BICARBONATE 31.9 MEQ/L (21.0-32.0); BLOOD UREA NITROGEN 36 MG/DL (7-18); CALCIUM 8.5 MG/DL (8.5-10.1); CHLORIDE 103 MEQ/L (98-107); CREATININE 2.71 MG/DL (0.60-1.30); GLOMERULAR FILTRATION RATE 24 ML/MIN (>89); GLUCOSE,RANDOM 91 MG/DL (74-106); SODIUM (NA) 139 MEQ/L (136-145)
[2017-07-17] MEDS ORDERED: SODIUM CHLORID 0.9% 500 ML INJ 500 ML IV ONE (13:45)
[2017-07-17] MEDS: SODIUM CHLOR 0.9% 1000 ML INJ 1,000 ML IV SCH ×2 (14:41→23:15)
--- NOTE | 2017-07-17 15:06 | RADRPT ---
EXAM DATE/TIME: 07/17/2017 14:03 [facility] COMPARISON: CHEST SINGLE AP, May 26, 2017, 20:14. INDICATIONS : Shortness of breath. MEDICAL HISTORY : None. SURGICAL HISTORY : None. ENCOUNTER: Initial ACUITY: 1 day PAIN SCORE: Non-responsive. LOCATION: Bilateral chest FINDINGS: A single view of the chest demonstrates developing bibasilar airspace disease. Lungs are hypoinflated . Heart size is borderline prominent but appears to be well compensated. Dextroscoliosis of the dorsa l spine. Osseous structures are otherwise intact. CONCLUSION: 1. Hypoinflation with bibasilar airspace disease. 2. Compensated cardiomegaly Raymon De Dios MD on July 17, 2017 at 15:03 Board Certified Radiologist. This report was verified electronically.
--- NOTE | 2017-07-17 15:06 | HHI.HP ---
HPI [facility] Physician Dejuan Ruby MD Admission Diagnosis new onset sz, AMS,DONALD, head injury Diagnoses: Chief Complaint: sudeen change in MS- unresponsive Travel History International Travel<30 Days: No Contact w/Intl Traveler <30 Da: No Traveled to Known Affected Are: No History of Present Illness Patient is a 62 years old male, right handed with history of Cerebral palsy, resident of a nearby [facility] - states baseline gets around "uses both" with a walker and a wheelchair who this am while trying to reach out for his walker rolled out of bed and fell and sustained a scalp laceration. A head CT was done with no acute injury. Laceration was dermabonded. Vital signs were stable, patient was alert. patient was actually set up to be DC. On checking onnhim, staff noted him to be unresponsiveness and unarousable even with deep sternal stimulus. Gradually wakened up but very agitated and confused requiring restraints. Entire stay in [facility] ER- no seizure activity was noted. ER nurse reported urinary incontinence 2-3x- urine spurted out. Now on bedside evaluation, patient is more awake and alert, interactive and responded appropriately- states he is from an [place]. denies any history of recent fever , headaches Per discussion with ER nurse, he is more back to his near baseline now. Per patient- is continent of urine and stools Review of Systems Constitutional: DENIES: Diaphoretic episodes, Fatigue, Fever, Weight gain, Weight loss, Chills, Dizziness, Change in appetite, Night Sweats Endocrine: DENIES: Heat/cold intolerance, Polydipsia, Polyuria, Polyphagia Eyes: DENIES: Blurred vision, Diplopia, Eye inflammation, Eye pain, Vision loss , Photosensitivity, Double Vision Ears, nose, mouth, throat: DENIES: Tinnitus, Hearing loss, Vertigo, Nasal discharge, Oral lesions, Throat pain, Hoarseness, Ear Pain, Running Nose, Epistaxis, Sinus Pain, Toothache, Odynophagia Respiratory: DENIES: Apneas, Cough, Snoring, Wheezing, Hemoptysis, Sputum production, Shortness of breath Cardiovascular: DENIES: Chest pain, Palpitations, Syncope, Dyspnea on Exertion , PND, Lower Extremity Edema, Orthopnea, Claudication Gastrointestinal: DENIES: Abdominal pain, Black stools, Bloody stools, Constipation, Diarrhea, Nausea, Vomiting, Difficulty Swallowing, Anorexia Genitourinary: DENIES: Sexual dysfunction, Urinary frequency, Urinary incontinence, Urgency, Hematuria, Dysuria, Nocturia, Penile Discharge, Testicular Pain, Testicular Swelling Musculoskeletal: DENIES: Joint pain, Muscle aches, Stiffness, Joint Swelling, Back pain, Neck pain Integumentary: DENIES: Abnormal pigmentation, Nail changes, Pruritus, Rash Hematologic/lymphatic: DENIES: Bruising, Lymphadenopathy Immunologic/allergic: DENIES: Eczema, Urticaria Neurologic: COMPLAINS OF: Poor Balance (uses a walker and wheelchair), DENIES: Abnormal gait, Headache, Localized weakness, Paresthesias, Seizures, Speech Problems, Tremor Psychiatric: DENIES: Anxiety, Confusion, Mood changes, Depression, Hallucinations, Agitation, Suicidal Ideation, Homicidal Ideation, Delusions Past Family Social History Past Medical History based on meds history of hyperlipidemia, Hypertension, hypothyroidism history of cerebral palsy 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 Past Surgical History states history of eye surgery and hernia surgery Reported Medications dosyccycline, albuterol, flomax, baclofen, atrovastatin, furosemid, losartan 100 , finasteride protoniox, synthroid Allergies: Coded Allergies: No Known Allergies (Unverified , 07/17/17) Family History non contributory Social History smoked cigarettes 10 sticks in the past 2009 denies alcohol use Physical Exam Vital Signs Vital Signs Date Time Temp Pulse Resp B/P (MAP) Pulse Ox O2 Delivery O2 Flow Rate FiO2 07/17/17 11:28 95 Non-Rebreather 15.00 07/17/17 10:11 07/17/17 10:05 81 18 129/73 (91) 93 Nasal Cannula 4.00 07/17/17 08:19 77 16 93 Nasal Cannula 4.00 07/17/17 08:16 98.1 78 16 145/79 (101) 90 Physical Exam GENERAL: This is a well-nourished, well-developed patient, in no apparent distress. awake and alert , oriented x 3 SKIN: right lateral aspect of the right leg- with quarter size superficial wound with mild surrounding erythema HEAD: Atraumatic. Normocephalic. No temporal or scalp tenderness. EYES: Pupils equal round and reactive. Extraocular motions intact. No scleral icterus. No injection or drainage. ENT: Nose without bleeding,Throat without erythema, tonsillar hypertrophy or exudate. Uvula midline. Airway patent. NECK: Trachea midline. No JVD or lymphadenopathy. Supple, nontender, no meningeal signs. CARDIOVASCULAR: Regular rate and rhythm , soft 2/6 systolic murmur left sternal border, no gallops, or rubs. RESPIRATORY: Clear to auscultation. Breath sounds equal bilaterally. No wheezes , rales, or rhonchi. GASTROINTESTINAL: Abdomen soft, non-tender, no scrotal swelling No guarding. MUSCULOSKELETAL: Extremities without clubbing, cyanosis, bilateral + LE edema- right more than left.. No joint tenderness, effusion, or edema noted. No calf tenderness. Negative Homans sign bilaterally. moves all extremities spontaneously NEUROLOGICAL: Awake and alert. Cranial nerves II through XII intact. Motor and sensory grossly within normal limits. Five out of 5 muscle strength in all muscle groups. Normal speech. Laboratory Laboratory Tests Test 07/17/17 11:30 07/17/17 14:29 White Blood Count 5.7 Red Blood Count 4.13 Hemoglobin 12.3 Hematocrit 37.6 Mean Corpuscular Volume 90.9 Mean Corpuscular Hemoglobin 29.7 Mean Corpuscular Hemoglobin Concent 32.7 Red Cell Distribution Width 15.9 Platelet Count 147 Mean Platelet Volume 8.5 Neutrophils (%) (Auto) 73.3 Lymphocytes (%) (Auto) 15.8 Monocytes (%) (Auto) 5.1 Eosinophils (%) (Auto) 4.8 Basophils (%) (Auto) 1.0 Neutrophils # (Auto) 4.2 Lymphocytes # (Auto) 0.9 Monocytes # (Auto) 0.3 Eosinophils # (Auto) 0.3 Basophils # (Auto) 0.1 CBC Comment DIFF FINAL Differential Comment Blood Urea Nitrogen 36 Creatinine 2.71 Random Glucose 91 Calcium Level 8.5 Sodium Level 139 Potassium Level 5.4 Chloride Level 103 Carbon Dioxide Level 31.9 Anion Gap 4 Estimat Glomerular Filtration Rate 24 Result Diagram: 07/17/17 1130 07/17/17 1130 Imaging Last Impressions Head CT 07/17/17 0000 Signed Impressions: Service Date/Time: Monday, July 17, 2017 08:47 - CONCLUSION: No acute intracranial injury MD Walter Shepard VTE Risk Assessment Caprini VTE Risk Assessment: Mod/High Risk (score >= 2) Caprini Risk Assessment Model Point Value = 1 Point Value = 2 Point Value = 3 Point Value = 5 Age 41-60 Minor surgery BMI > 25 kg/m2 Swollen legs Varicose veins or History of unexplained or recurrent spontaneous Oral contraceptives or hormone replacement Sepsis (< 1 month) Serious lung disease, including pneumonia (< 1 month) Abnormal pulmonary function Acute myocardial infarction Congestive heart failure (< 1 month) History of inflammatory bowel disease Medical patient at bed rest Age 61-74 Arthroscopic surgery Major open surgery (> 45 min) Laparoscopic surgery (> 45 min) Malignancy Confined to bed (> 72 hours) Immobilizing plaster cast Central venous access Age >= 75 History of VTE Family history of VTE Factor V Leiden Prothrombin [id number] Lupus anticoagulant Anticardiolipin antibodies Elevated serum homocysteine Heparin-induced thrombocytopenia Other congenital or acquired thrombophilia Stroke (< 1 month) Elective arthroplasty Hip, pelvis, or leg fracture Acute spinal cord injury (< 1 month) Prophylaxis Regimen Total Risk Factor Score Risk Level Prophylaxis Regimen 0-1 Low Early ambulation 2 Moderate Order ONE of the following: *Sequential Compression Device (SCD) *Heparin 5000 units SQ BID 3-4 Higher Order ONE of the following medications: *Heparin 5000 units SQ TID *Enoxaparin/Lovenox 40 mg SQ daily (WT < 150 kg, CrCl > 30 mL/min) *Enoxaparin/Lovenox 30 mg SQ daily (WT < 150 kg, CrCl > 10-29 mL/min) *Enoxaparin/Lovenox 30 mg SQ BID (WT < 150 kg, CrCl > 30 mL/min) AND/OR *Sequential Compression Device (SCD) 5 or more Highest Order ONE of the following medications: *Heparin 5000 units SQ TID (Preferred with Epidurals) *Enoxaparin/Lovenox 40 mg SQ daily (WT < 150 kg, CrCl > 30 mL/min) *Enoxaparin/Lovenox 30 mg SQ daily (WT < 150 kg, CrCl > 10-29 mL/min) *Enoxaparin/Lovenox 30 mg SQ BID (WT < 150 kg, CrCl > 30 mL/min) AND *Sequential Compression Device (SCD) Assessment and Plan Assessment and Plan 62 years old male with history of cerebral Palsy admitted for Acute change in MS s/p fall - Head concussion S/p Fall - ER report patient was unresponsive for about at least an hour- now MS near baseline-- patient conversant and joking, oriented x 3 but amnesic of event no actual SZ activity reported or witnessed History of cerebral palsy - Neuro checks hourly get an MRI, EEG get neurology consult- for recommendations continue Neurontin- adjust for creatinine Scalp laceration- s/p dermabond Acute respiratory failure in acute acidosis with decrease in MS - + patient was placed on 100% NRB by EVAC which can cause more C02 retention Back ground of COPD- requiring- per patient he is on 3- 4 LNC monitor MS avoid sedation check CXR duonebs q 6 recheck ABG later. May need Bi PAP for respiratory acidosis Acute Kidney injury Hyperkalemia- K 5.4 History of BPH start gentle hydration Hold Lasix and Losartan recheck BMP now continue on flomax check renal ultrasound History of hypertension 12 Lead EKG- sinus with PACs will hold furosemide and Losartan due to DONALD and mild hyperkalemia consider Calcium channel raulito or BB for BP control get Echo Peripheral Leg edema- mild check doppler for DVT. get Echo Right LE superficial wound wound care team consult History of hypthyroidism- continue synthroid Low Iron stores- on review of old labs. H and H within normal recheck iron studies in am continue home PPI Heparin SQ for DVT prophylaxis if MRI negative for bleed PT eval in am Physician Certification 2 Midnight Certification Type: Admission for Inpatient Services Order for Inpatient Services The services are ordered in accordance with Medicare regulations or non- Medicare payer requirements, as applicable. In the case of services not specified as inpatient-only, they are appropriately provided as inpatient services in accordance with the 2-midnight benchmark. Estimated LOS (days): 3 days is the estimated time the patient will need to remain in the hospital, assuming treatment plan goals are met and no additional complications. Post-Hospital Plan: Not yet determined Melony Sandoval MD July 17, 2017 15:06
[2017-07-17] MEDS ORDERED: ALBUTEROL SULFATE 90 MCG/ACT HFA 8 GM INHALER INH PRN (15:45)
[2017-07-17] MEDS ORDERED: RESP: ALBUTEROL 2.5 MG/IPRATROPIUM 0.5 MG NEB (PRN) NEB (15:45)
[2017-07-17 15:47] LABS: ALBUMIN 3.9 GM/DL (3.4-5.0); ALT (GPT) 19 U/L (12-78); AST (GOT) 16 U/L (15-37)
--- NOTE | 2017-07-17 15:54 | RADRPT ---
EXAM DATE/TIME: 07/17/2017 14:44 [facility] COMPARISON: No previous studies available for comparison. INDICATIONS : Bilateral leg swelling. MEDICAL HISTORY : Hypercholesterolemia. Hypertension. Thyroid disease. Cerebral palsy. Congestive heart failure. SURGICAL HISTORY : Hernia repair. Eye surgery. ENCOUNTER: Initial ACUITY: 1 day PAIN SCORE: 3/10 LOCATION: Bilateral lower extremities. TECHNIQUE: Venous ultrasound of the left and right leg was performed from the inguinal ligament to the proximal calf. Real-time, color Doppler and spectral tracing, compression and augmentation techniques were us ed. FINDINGS: RIGHT LEG: There is normal compressibility of the deep venous system from the inguinal region to the proximal ca lf. No echogenic clot is seen in the lumen of the common femoral, femoral, popliteal, and posterior tibial veins. There is a normal response of the venous system to proximal and distal augmentation an d respiration. LEFT LEG: There is normal compressibility of the deep venous system from the inguinal region to the proximal ca lf. No echogenic clot is seen in the lumen of the common femoral, femoral, popliteal, and posterior tibial veins. There is a normal response of the venous system to proximal and distal augmentation an d respiration. CONCLUSION: Negative exam. No sonographic or Doppler findings of deep venous thrombosis. Raymon De Dios MD on July 17, 2017 at 15:52 Board Certified Radiologist. This report was verified electronically.
[2017-07-17 15:55] LABS: ALKALINE PHOSPHATASE 54 U/L (45-117); TOTAL BILIRUBIN ADULT 0.2 MG/DL (0.2-1.0)
--- NOTE | 2017-07-17 17:31 | RADRPT ---
EXAM DATE/TIME: 07/17/2017 16:57 [facility] COMPARISON: No previous studies available for comparison. INDICATIONS : Increased BUN/Creatinine. MEDICAL HISTORY : Congestive heart failure. Hypercholesterolemia. Hypertension. Hypothyroidism. Cerebral palsy. SURGICAL HISTORY : Hernia repair. Scalp laceration/dermabond. Eye surgery. ENCOUNTER: Initial ACUITY: 1 day PAIN SCORE: 1/10 LOCATION: Bilateral flank MEASUREMENTS: RIGHT KIDNEY: 9.6 x 4.7 x 4.9 cm LEFT KIDNEY: 11.1 x 4.6 x 4.9 cm FINDINGS: RIGHT KIDNEY: Renal cortex is normal in thickness and echotexture. No hydronephrosis, stone, or mass. LEFT KIDNEY: 2 cm cyst involving the lower pole cortex. No evidence of stone or hydronephrosis. Otherwise normal c ortical echogenicity and thickness BLADDER: Within normal limits given the degree of distension. CONCLUSION: No evidence of hydronephrosis Maurice Worthington MD on July 17, 2017 at 17:28 Board Certified Radiologist. This report was verified electronically.
--- NOTE | 2017-07-17 17:36 | RADRPT ---
EXAM DATE/TIME: 07/17/2017 16:30 [facility] COMPARISON: CT BRAIN W/O CONTRAST, July 17, 2017, 8:47. INDICATIONS : Seizures. MEDICAL HISTORY : cleared by rad. SURGICAL HISTORY : cleared by rad, ENCOUNTER: Initial ACUITY: 2 day PAIN SCORE: 0/10 LOCATION: head TECHNIQUE: Multiplanar, multisequence MRI of the brain was performed without contrast. FINDINGS: CEREBRUM: Old lacunar infarct in the right caudate head region. Small cyst in the anterior left sylvian region. The ventricles are normal for age. No evidence of midline shift, mass lesion, hemorrhage or acute i nfarction. No extraaxial fluid collections are seen. The pituitary gland and suprasellar cistern ar e normal in configuration. WHITE MATTER: Scattered punctate areas of white matter T2 prolongation in the periventricular and subcortical regio ns which appear benign. POSTERIOR FOSSA: The cerebellum and brainstem are intact. The 4th ventricle is midline. The cerebellopontine angle is unremarkable. The cerebellar tonsils are normal in position. DIFFUSION IMAGING: No focal areas of restricted diffusion are seen. No evidence of acute infarction. EXTRACRANIAL: Scalp lipoma in the midline frontal region. Mild sinus and mastoid disease CONCLUSION: No acute intracranial findings Maurice Worthington MD on July 17, 2017 at 17:29 Board Certified Radiologist. This report was verified electronically.
--- NOTE | 2017-07-17 19:38 | MB ---
cc: Judd Griffin MD DATE: 07/17/2017 HISTORY OF PRESENT ILLNESS: This is a 62-year-old right-handed man, hypertension, hypercholesterolemia, hypothyroidism. He thinks he had a seizure years ago. Not a great historian and evidently fell out of bed. At first, he says he does not remember falling of bed, then he says he but does not know what happened after that. He had a scalp laceration, went to the ER, was about to be discharged from the ER when all of a sudden he became unresponsive, unarousable to deep sternal rub and he gradually woke up and was agitated. No seizure was actually witnessed, but he had some incontinence of urine. He lives in an [facility], walks with a walker. He has cerebral palsy. PAST MEDICAL HISTORY: As above, hyperlipidemia, BPH, eye surgery, hernia surgery, bilateral hearing aids. MEDICATIONS AT HOME: 1. Albuterol. 2. Flomax. 3. Baclofen. 4. Atorvastatin. 5. Furosemide. 6. Losartan. 7. Finasteride. 8. Protonix. 9. Synthroid. ALLERGIES: NO KNOWN DRUG ALLERGIES. SOCIAL HISTORY: Not a smoker or drinker. Lives at the [facility]. FAMILY HISTORY: Negative for cancer, seizure or stroke. PHYSICAL EXAMINATION: VITAL SIGNS: On exam, sinus rhythm. Afebrile, 77, 18, 142/79. NECK: There were no carotid bruits. HEART: Regular rate and rhythm. I do not detect a murmur. NEUROLOGIC: Pupils are equal. Visual jules appear to be full. Face is symmetric. No nystagmus. Tongue was midline. No Tang sign. He was sinus rhythm on EKG. He moved all of his extremities well. Toes are downgoing bilaterally. No ankle clonus. Pinprick is intact throughout upper and lower extremities and face bilaterally. He is awake and alert. He knew the month and the year. Speech is a little dysarthric from baseline. LABORATORY DATA: CBC is normal. Basic metabolic profile today with a creatinine of 2.71. He has a history of low iron. LFTs are normal today. Albumin normal. TSH normal. Blood gas was 7.27, 63, 52. He is not sure if he is a snorer or not. UA was negative. IMAGING STUDIES: MRI of the brain was done, read as negative. Head CT done that was negative. MRI of the brain was done without contrast. On review of the films no infarct is noted. He has got some white matter changes bilaterally, mild diffuse atrophy. One prominent white matter change around the frontal horn of the lateral ventricle. No hemorrhage is noted. IMPRESSION: Possibly an unwitnessed seizure. Certainly some hypercapnia and he probably has a history of sleep apnea more than likely. PLAN: I would recommend rechecking his blood gas and if it is still abnormal have Pulmonary see him. We will check an EEG on him. He is okay to get up out of bed. He should be on seizure precautions. We will get some blood work on him, check a carotid ultrasound, keep him on telemetry. Check a drug screen on him. At this time, I would not definitely treat him antiseizure medication unless his EEG is abnormal. MD NICHOLE Calixto/VALARIE , 07:19 PM , 07:37 PM
[2017-07-17] MEDS: RESP: ALBUTEROL 2.5 MG/IPRATROPIUM 0.5 MG NEB (SCH) NEB (21:06)
[2017-07-17] MEDS: ATORVASTATIN 20 MG TAB PO SCH (21:07)
[2017-07-17] MEDS: GABAPENTIN 300 MG CAP PO SCH (21:07)
[2017-07-17] MEDS: ASCORBIC ACID 500 MG TAB PO SCH (21:07)
[2017-07-17] MEDS: HEPARIN SODIUM - SQ 10,000 UNITS/ML VIAL SQ SCH (21:12)
[2017-07-18] VITALS (12 sets, daily range): BP systolic 116–146; BP diastolic 58–77; PULSE 53–92; RESP 18–22; TEMP 97.7–98.3; O2SAT 92–98
[2017-07-18] MEDS: RESP: ALBUTEROL 2.5 MG/IPRATROPIUM 0.5 MG NEB (SCH) NEB ×4 (02:46→21:23)
[2017-07-18] MEDS: SODIUM CHLOR 0.9% 1000 ML INJ 1,000 ML IV SCH ×2 (05:56→15:12)
--- NOTE | 2017-07-18 07:30 | HHI.PR ---
Subjective Remarks no new spells bipap last pm Objective Vital Signs Date Time Temp Pulse Resp B/P (MAP) Pulse Ox O2 Delivery O2 Flow Rate FiO2 07/18/17 06:32 Bi-Pap 07/18/17 05:16 Bi-Pap 07/18/17 02:49 96 45 07/18/17 01:05 95 07/18/17 00:27 Bi-Pap 07/18/17 00:00 98.3 53 18 123/66 (85) 94 07/17/17 22:59 92 45 07/17/17 22:00 Bi-Pap 07/17/17 21:06 91 Nasal Cannula 6.00 07/17/17 20:00 97.8 95 18 113/56 (75) 98 07/17/17 18:05 97.9 77 18 142/79 (100) 96 07/17/17 15:28 07/17/17 15:00 85 18 167/85 (112) 97 Nasal Cannula 4.00 07/17/17 11:28 95 Non-Rebreather 15.00 07/17/17 10:11 07/17/17 10:05 81 18 129/73 (91) 93 Nasal Cannula 4.00 07/17/17 08:19 77 16 93 Nasal Cannula 4.00 07/17/17 08:16 98.1 78 16 145/79 (101) 90 I/O 07/17/17 07/17/17 07/17/17 07/18/17 07/18/17 07/18/17 07:00 15:00 23:00 07:00 15:00 23:00 Intake Total 1000 ml Balance 1000 ml Intake IV Total 1000 ml Result Diagram: 07/17/17 1130 07/17/17 1130 Objective Remarks awake alert dysarthric Assessment and Plan Assessment and Plan imp fu eeg and us pulm consult in mri neg unclear if sz or not or just hypercapnea Judd Griffin MD July 18, 2017 07:30
[2017-07-18] MEDS: OFLOXACIN 0.3% OPTH SOLN 5 ML BTL LEFT EAR SCH (09:00)
[2017-07-18] MEDS: ASCORBIC ACID 500 MG TAB PO SCH ×2 (09:39→20:48)
[2017-07-18] MEDS: TAMSULOSIN HCL 0.4 MG CAP PO SCH (09:39)
[2017-07-18] MEDS: PANTOPRAZOLE SOD 40 MG DELAYED RELEASE TAB PO SCH (09:39)
[2017-07-18] MEDS: LEVOTHYROXINE SODIUM 150 MCG TAB PO SCH (09:39)
[2017-07-18] MEDS: GABAPENTIN 300 MG CAP PO SCH ×2 (09:39→20:48)
[2017-07-18] MEDS: HEPARIN SODIUM - SQ 10,000 UNITS/ML VIAL SQ SCH ×2 (09:40→20:49)
[2017-07-18 09:46] LABS: % SATURATION IRON PROFILE 16.4 % (20-50); ALBUMIN 3.5 GM/DL (3.4-5.0); ALKALINE PHOSPHATASE 51 U/L (45-117); ALT (GPT) 18 U/L (12-78); AST (GOT) 12 U/L (15-37); BICARBONATE 30.1 MEQ/L (21.0-32.0); BLOOD UREA NITROGEN 25 MG/DL (7-18); CALCIUM 8.7 MG/DL (8.5-10.1); CHLORIDE 104 MEQ/L (98-107); CREATININE 1.37 MG/DL (0.60-1.30); FERRITIN 19 NG/ML (26-388); GLOMERULAR FILTRATION RATE 52 ML/MIN (>89); GLUCOSE,RANDOM 79 MG/DL (74-106); IRON (FE) 65 MCG/DL (65-175); SODIUM (NA) 140 MEQ/L (136-145); TOTAL BILIRUBIN ADULT 0.4 MG/DL (0.2-1.0); TOTAL IRON BINDING CAPACITY 396 MCG/DL (250-450); TOTAL PROTEIN 6.4 GM/DL (6.4-8.2)
--- NOTE | 2017-07-18 10:50 | RADRPT ---
EXAM DATE: 07/18/2017 10:26 AM EDT AGE/SEX: 62 years / Male INDICATIONS: Cerebrovascular accident. CLINICAL DATA: This is the patient's initial encounter. Patient reports that signs and symptoms have been present for 2 days and indicates a pain score of 6/10. MEDICAL/SURGICAL HISTORY: . Congestive heart failure. Hypercholesterolemia. Hypertension. Hypot hyroidism. Cerebral palsy. . Hernia repair. Scalp laceration/dermabond. Eye surgery. COMPARISON: No prior [facility] exams available for comparison. No external comparison. VELOCITY PARAMETERS: ICA/CCA Ratio: Right 1.1 , Left 1.1 ICA: Right 141 cm/sec, Left 116 cm/sec CCA: Right 132 cm/sec, Left 103 cm/sec ECA: Right 132 cm/sec, Left 85 cm/sec Vertebral: Right 114 cm/sec antegrade, Left 42 cm/sec antergrade FINDINGS: Right Carotid: Mild to moderate atherosclerotic plaquing at the bifurcation. There is some tortuosity of the common carotid and internal carotid artery. There is some elevated velocity in the right inte rnal carotid artery.. Left Carotid: Mild atherosclerotic plaquing at the bifurcation. There is some tortuosity of the inter nal carotid artery. No significant stenosis is visualized. The waveforms are within normal limits. Other: None. CONCLUSION: 1. There is mild to moderate atherosclerotic plaquing at the right carotid bifurcation. There is mil d elevation of the velocity in the right internal carotid artery. This suggests some mild to moderate stenosis. Recommend a CTA of the carotids for further evaluation. 2. Mild atherosclerotic scarring plaquing at the left carotid bifurcation. Electronically signed by: Dejuan Gilmore MD 07/18/2017 10:49 AM EDT
--- NOTE | 2017-07-18 11:36 | MB ---
cc: Arno Sharp MD DATE: 07/18/2017 REASON FOR CONSULTATION: Hypoxic and hypercarbic respiratory failure. HISTORY OF PRESENT ILLNESS: Mr. Armand Zhang is a 62-year-old male with known history of hypertension, hyperlipidemia, hypothyroidism, cerebral palsy, BPH who was admitted after falling at home out of bed. He seemed stable for discharge; however, then became unresponsive, after which he was hospitalized. There is no evidence of an acute cerebrovascular event. He was seen by Neurology for possible seizure activity and none was noted so far. The patient was noted to be hypoxic and hypercarbic with evidence of partially compensated respiratory acidosis. He does have a long smoking history and probable underlying COPD as well. PAST MEDICAL HISTORY: Hypertension, hyperlipidemia, hypothyroidism, BPH, probable COPD and history of cerebral palsy. PAST SURGICAL HISTORY: He did have history of eye surgery and hernia repair in the past. ALLERGIES: NONE KNOWN TO MEDICATIONS. CURRENT MEDICATIONS: 1. Levothyroxine. 2. Pantoprazole. 3. Flomax. 4. Ofloxacin. 5. Ascorbic acid. 6. Atorvastatin. 7. Gabapentin. 8. Albuterol. 9. Ipratropium nebulizer. FAMILY HISTORY: Noncontributory. SOCIAL HISTORY: He used to smoke, stopped 10 years ago. He drinks alcohol socially, does not use drugs. No TB. No industrial exposure. Lives in an [place]. PHYSICAL EXAMINATION: SKIN: Normal. LYMPHATICS: No lymphadenopathy. LABORATORY DATA: Sodium 140, potassium 5.1, BUN 25, creatinine 1.3. White count 5.7, hemoglobin 12, hematocrit 37. INR 0.7. ABG on 07/17/2017: pH of 7.29, pCO2 61, pO2 72 on 6 liters of O2 nasal cannula. IMAGING STUDIES: Chest x-ray with hypoinflation and atelectatic change. IMPRESSION: 1. Hypoxic hypercarbic respiratory failure. 2. Probable chronic obstructive pulmonary disease. 3. Sleep disordered breathing suspect, either obstructive sleep apnea or obesity hypoventilation. The patient does not know if he stops breathing or not. He was told he snores on occasion. 4. Hypertension. 5. Hyperlipidemia. 6. Hypothyroidism. 7. Benign prostatic hypertrophy. PLAN: The patient will require BiPAP therapy on a long-term basis to improve his oxygenation as well as ventilation. He is to continue his bronchodilators and obtain pulmonary function. Thyroid replacement has been undertaken and appropriately so. He is encouraged to exercise and lose weight. I do thank you for asking me to partake in Mr. Zhang's care. Sincerely, Aron Sharp MD WWW/VALARIE , 11:14 AM , 11:36 AM
--- NOTE | 2017-07-18 12:22 | HHI.PR ---
Subjective Remarks Patient states that he is having pain over the back of his head and neck. Breathing okay. Objective Vitals Vital Signs Date Time Temp Pulse Resp B/P (MAP) Pulse Ox O2 Delivery O2 Flow Rate FiO2 07/18/17 09:42 93 Nasal Cannula 4.00 07/18/17 08:55 98.1 71 20 126/71 (89) 93 07/18/17 07:35 Nasal Cannula 4.00 07/18/17 06:32 Bi-Pap 07/18/17 05:16 Bi-Pap 07/18/17 04:00 97.7 92 18 116/58 (77) 98 07/18/17 02:49 96 45 07/18/17 01:05 95 07/18/17 00:27 Bi-Pap 07/18/17 00:00 98.3 53 18 123/66 (85) 94 07/17/17 22:59 92 45 07/17/17 22:00 Bi-Pap 07/17/17 21:06 91 Nasal Cannula 6.00 07/17/17 20:00 97.8 95 18 113/56 (75) 98 07/17/17 18:05 97.9 77 18 142/79 (100) 96 07/17/17 15:28 07/17/17 15:00 85 18 167/85 (112) 97 Nasal Cannula 4.00 I/O 07/17/17 07/17/17 07/17/17 07/18/17 07/18/17 07/18/17 07:00 15:00 23:00 07:00 15:00 23:00 Intake Total 1000 ml Output Total 600 ml Balance 1000 ml -600 ml Intake IV Total 1000 ml Output Urine Total 600 ml Result Diagram: 07/17/17 1130 07/18/17 0832 Imaging Last Impressions Carotid Artery Ultrasound 07/18/17 1918 Signed Impressions: CONCLUSION: Chest X-Ray 07/17/17 1357 Signed Impressions: Service Date/Time: Monday, July 17, 2017 14:03 - CONCLUSION: 1. Hypoinflation with bibasilar airspace disease. 2. Compensated cardiomegaly Raymon De Dios MD Renal Ultrasound 07/17/17 0000 Signed Impressions: Service Date/Time: Monday, July 17, 2017 16:57 - CONCLUSION: No evidence of hydronephrosis Maurice Worthington MD Lower Extremity Ultrasound 07/17/17 Signed Impressions: Service Date/Time: Monday, July 17, 2017 14:44 - CONCLUSION: Negative exam. No sonographic or Doppler findings of deep venous thrombosis. Raymon De Dios MD Head CT 07/17/17 Signed Impressions: Service Date/Time: Monday, July 17, 2017 08:47 - CONCLUSION: No acute intracranial injury Maurice Worthington MD Brain MRI 07/17/17 Signed Impressions: Service Date/Time: Monday, July 17, 2017 16:30 - CONCLUSION: No acute intracranial findings Maurice Worthington MD Objective Remarks GENERAL: This is a well-nourished, well-developed patient, in no apparent distress. CARDIOVASCULAR: Regular rate and rhythm RESPIRATORY: Clear to auscultation. Breath sounds equal bilaterally. No wheezes , rales, or rhonchi. GASTROINTESTINAL: Abdomen soft, non-tender, nondistended. Normal active bowel sounds MUSCULOSKELETAL: Extremities without clubbing, cyanosis, 1+ edema NEURO: Alert & Oriented x3 to person, place, time. answers questions. Moves all ext x4 A/P Assessment and Plan 62 years old male with history of cerebral Palsy admitted for Acute change in MS s/p fall - Head concussion S/p Fall - ER report patient was unresponsive for about at least an hour- now mental status is near baseline--currently alert oriented x 3 but amnesic of event no actual SZ activity reported or witnessed History of cerebral palsy - Neuro checks hourly get an MRI brain -showed no acute findings EEG-currently pending; carotid ultrasound showed mild to moderate stenosis to the right; at this time due to his acute kidney injury would avoid further workup with CTA of the neck, continue with aspirin. Appreciate neurology consultation for further recommendations continue Neurontin- adjust for creatinine Scalp laceration- s/p dermabond Acute respiratory failure in acute acidosis with decrease in MS - + patient was placed on 100% NRB by EVAC which can cause more C02 retention Back ground of COPD- 02 requiring- per patient he is on 02 3- 4 LNC monitor MS avoid sedation Acute Kidney injury -superimposed on chronic kidney disease stage III, overall night has improved. We will continue to monitor BUN/creatinine and avoid nephrotoxins. Renal ultrasound within normal limits. Hyperkalemia- K 5.1 today improved History of BPH start gentle hydration Hold Lasix and Losartan recheck BMP now continue on flomax check renal ultrasound History of hypertension will hold furosemide and Losartan due to DONALD and mild hyperkalemia consider Calcium channel raulito for blood pressure control Echo currently pending. Peripheral Leg edema- mild check doppler for DVT. Echo currently pending Right LE superficial wound wound care team consult History of hypothyroidism- continue synthroid Low Iron stores- on review of old labs. H and H within normal recheck iron studies in am continue home PPI DVT prophylaxis - heparin subcu Noris Castillo MD July 18, 2017 12:22
[2017-07-18] MEDS ORDERED: NALOXONE HCL 0.4 MG/ML AMP IV PUSH PRN (12:30)
[2017-07-18] MEDS ORDERED: ASPIRIN EC 81 MG TABEC PO ONE (13:15)
--- NOTE | 2017-07-18 16:43 | EKG ---
Date Performed: 07/17/2017 Time Performed: 15:17:41 PTAGE: 62 years EKG: Sinus rhythm WITH FIRST DEGREE AV BLOCK WITH FREQUENT SUPRAVENTRICULAR PREMATURE COMPLEXES MARKED LEFT AXIS DEVIA TION PATTERN CONSISTENT WITH PULMONARY DISEASE MODERATE INTRAVENTRICULAR CONDUCTION DELAY ABNORMAL EC G PREVIOUS TRACING : 05/26/2017 20.22 Since the previous tracing, no significant change noted DOCTOR: Willi Mckeon Interpretating Date/Time 07/18/2017 16:41:10
--- NOTE | 2017-07-18 20:38 | MG ---
cc: Judd Griffin MD, David J MD [phone] Rolled out of bed, hit his head, cerebral palsy. Lipitor. Gabapentin INTERPRETATION: A diffuse 7 Hz slowing is noted. The recording overall is synchronous and symmetric. A posterior rhythm of 60 microvolts, 7 Hz is noted, which is synchronous and symmetric. Hyperventilation was not performed. Photic stimulation was performed without significant posterior driving. No epileptiform or seizure activity was noted. There were no hemisphere asymmetries. IMPRESSION: Mild diffuse theta slowing consistent with a mild diffuse encephalopathy, but no focal abnormality was noted. No seizure activity was seen. MD NICHOLE Calixto/ , 07:49 PM , 08:37 PM
[2017-07-18] MEDS: BACLOFEN 10 MG TAB PO SCH (20:48)
[2017-07-18] MEDS: ATORVASTATIN 20 MG TAB PO SCH (20:48)
[2017-07-18] MEDS: ACETAMINOPHEN 325 MG TAB PO PRN (21:03)
[2017-07-19] VITALS (11 sets, daily range): BP systolic 116–176; BP diastolic 68–96; PULSE 57–84; RESP 18; TEMP 97.4–99.5; O2SAT 93–99
[2017-07-19] MEDS: RESP: ALBUTEROL 2.5 MG/IPRATROPIUM 0.5 MG NEB (SCH) NEB ×4 (03:35→21:05)
[2017-07-19] MEDS: SODIUM CHLOR 0.9% 1000 ML INJ 1,000 ML IV SCH ×2 (04:32→16:06)
[2017-07-19 07:53] LABS: CALCIUM 8.5 MG/DL (8.5-10.1); CREATININE 1.1 MG/DL (0.60-1.30)
--- NOTE | 2017-07-19 08:13 | HHI.PR ---
Subjective Remarks no new spells bipap last pm Objective Vital Signs Date Time Temp Pulse Resp B/P (MAP) Pulse Ox O2 Delivery O2 Flow Rate FiO2 07/19/17 04:14 Bi-Pap 07/19/17 04:00 97.4 66 18 141/75 (97) 97 07/19/17 03:39 95 Nasal Cannula 4.00 07/19/17 02:23 Bi-Pap 07/19/17 00:41 99 BiPAP 07/19/17 00:38 99 45 07/19/17 00:00 98.2 57 18 116/68 (84) 93 07/18/17 23:00 Bi-Pap 07/18/17 22:18 18 07/18/17 22:05 97 BiPAP 07/18/17 22:00 97 45 07/18/17 21:25 96 Nasal Cannula 4.00 07/18/17 21:01 Nasal Cannula 4.00 07/18/17 20:00 Nasal Cannula 4.00 07/18/17 20:00 97.9 76 20 146/70 (95) 92 07/18/17 16:00 98.2 70 22 122/77 (92) 96 07/18/17 12:00 98.2 75 22 124/75 (91) 95 07/18/17 09:42 93 Nasal Cannula 4.00 07/18/17 08:55 98.1 71 20 126/71 (89) 93 I/O 07/18/17 07/18/17 07/18/17 07/19/17 07/19/17 07/19/17 07:00 15:00 23:00 07:00 15:00 23:00 Intake Total 1000 ml 900 ml 480 ml Output Total 600 ml 1600 ml Balance 1000 ml -600 ml 900 ml 480 ml -1600 ml Intake Oral 480 ml IV Total 1000 ml 900 ml Output Urine Total 600 ml 1600 ml Result Diagram: 07/17/17 1130 07/19/17 0705 Objective Remarks awake alert dysarthric energetic mioves all well Assessment and Plan Assessment and Plan imp fu eeg and us both neg pulm consult on case mri neg unclear if sz or not or just hypercapnea oob recheck abg if ok ? dc?\ ok neurowise Judd Griffin MD July 19, 2017 08:13
[2017-07-19] MEDS: HEPARIN SODIUM - SQ 10,000 UNITS/ML VIAL SQ SCH ×2 (08:15→20:22)
[2017-07-19] MEDS: GABAPENTIN 300 MG CAP PO SCH ×2 (08:16→20:08)
[2017-07-19] MEDS: ASCORBIC ACID 500 MG TAB PO SCH ×2 (08:16→20:09)
[2017-07-19] MEDS: ASPIRIN EC 81 MG TABEC PO SCH (08:16)
[2017-07-19] MEDS: ACETAMINOPHEN 325 MG TAB PO PRN ×2 (08:17→18:32)
[2017-07-19] MEDS: TAMSULOSIN HCL 0.4 MG CAP PO SCH (08:17)
[2017-07-19] MEDS: BACLOFEN 10 MG TAB PO SCH ×2 (08:17→20:09)
[2017-07-19] MEDS: LEVOTHYROXINE SODIUM 150 MCG TAB PO SCH (08:17)
[2017-07-19] MEDS: PANTOPRAZOLE SOD 40 MG DELAYED RELEASE TAB PO SCH (08:17)
[2017-07-19] MEDS: OFLOXACIN 0.3% OPTH SOLN 5 ML BTL LEFT EAR SCH (11:29)
[2017-07-19 11:30] LABS: CHOLESTEROL/ HDL RATIO 3.08 RATIO; HDL CHOLESTEROL 39.6 MG/DL (40.0-60.0)
--- NOTE | 2017-07-19 17:14 | HHI.PR ---
Subjective Remarks ALERT NO DISTRESS ON O2 NC Objective Vital Signs Date Time Temp Pulse Resp B/P (MAP) Pulse Ox O2 Delivery O2 Flow Rate FiO2 07/19/17 12:00 98.6 72 18 147/73 (97) 97 07/19/17 08:31 99 Nasal Cannula 5.00 07/19/17 08:20 Nasal Cannula 4.00 07/19/17 08:00 98.6 65 18 139/68 (91) 96 07/19/17 08:00 98.5 65 18 139/68 (91) 96 07/19/17 04:14 Bi-Pap 07/19/17 04:00 97.4 66 18 141/75 (97) 97 07/19/17 03:39 95 Nasal Cannula 4.00 07/19/17 02:23 Bi-Pap 07/19/17 00:41 99 BiPAP 07/19/17 00:38 99 45 07/19/17 00:00 98.2 57 18 116/68 (84) 93 07/18/17 23:00 Bi-Pap 07/18/17 22:18 18 07/18/17 22:05 97 BiPAP 07/18/17 22:00 97 45 07/18/17 21:25 96 Nasal Cannula 4.00 07/18/17 21:01 Nasal Cannula 4.00 07/18/17 20:00 Nasal Cannula 4.00 07/18/17 20:00 97.9 76 20 146/70 (95) 92 I/O 07/18/17 07/18/17 07/18/17 07/19/17 07/19/17 07/19/17 07:00 15:00 23:00 07:00 15:00 23:00 Intake Total 1000 ml 900 ml 480 ml Output Total 600 ml 1600 ml Balance 1000 ml -600 ml 900 ml 480 ml -1600 ml Intake Oral 480 ml IV Total 1000 ml 900 ml Output Urine Total 600 ml 1600 ml Result Diagram: 07/17/17 1130 07/19/17 0705 Objective Remarks GENERAL: ALERT, ORIENTED X 3 SKIN: Warm and dry. HEAD: Atraumatic. Normocephalic. EYES: Pupils equal and round. No scleral icterus. No injection or drainage. ENT: No nasal bleeding or discharge. Mucous membranes pink and moist. NECK: Trachea midline. No JVD. CARDIOVASCULAR: Regular rate and rhythm. RESPIRATORY: No accessory muscle use. Clear to auscultation. Breath sounds equal bilaterally. GASTROINTESTINAL: Abdomen soft, non-tender, nondistended. Hepatic and splenic margins not palpable. MUSCULOSKELETAL: Extremities without clubbing, cyanosis, or edema. No obvious deformities. NEUROLOGICAL: Awake and alert. No obvious cranial nerve deficits. Motor grossly within normal limits. Five out of 5 muscle strength in the arms and legs. Normal speech. PSYCHIATRIC: Appropriate mood and affect; insight and judgment normal. Assessment and Plan Assessment and Plan IMPRESSION RESPIRATORY FAILURE ? COPD EDB ? MAGUI/CSA PLAN O2 NEEDED BRONCHODILATOR TRHERAPY NPSG POST DC Aron Sharp MD July 19, 2017 17:14
--- NOTE | 2017-07-19 19:12 | HHI.PR ---
Subjective Remarks PAtient c/o of pain on IV site as per RN patient has not had a bowel movement in 2 days. Patient is on 5 L nasal cannula. Objective Vitals Vital Signs Date Time Temp Pulse Resp B/P (MAP) Pulse Ox O2 Delivery O2 Flow Rate FiO2 07/19/17 16:00 98.4 74 18 176/96 (122) 93 07/19/17 12:00 98.6 72 18 147/73 (97) 97 07/19/17 08:31 99 Nasal Cannula 5.00 07/19/17 08:20 Nasal Cannula 4.00 07/19/17 08:00 98.6 65 18 139/68 (91) 96 07/19/17 08:00 98.5 65 18 139/68 (91) 96 07/19/17 04:14 Bi-Pap 07/19/17 04:00 97.4 66 18 141/75 (97) 97 07/19/17 03:39 95 Nasal Cannula 4.00 07/19/17 02:23 Bi-Pap 07/19/17 00:41 99 BiPAP 07/19/17 00:38 99 45 07/19/17 00:00 98.2 57 18 116/68 (84) 93 07/18/17 23:00 Bi-Pap 07/18/17 22:18 18 07/18/17 22:05 97 BiPAP 07/18/17 22:00 97 45 07/18/17 21:25 96 Nasal Cannula 4.00 07/18/17 21:01 Nasal Cannula 4.00 07/18/17 20:00 Nasal Cannula 4.00 07/18/17 20:00 97.9 76 20 146/70 (95) 92 I/O 07/18/17 07/18/17 07/18/17 07/19/17 07/19/17 07/19/17 06:59 14:59 22:59 06:59 14:59 22:59 Intake Total 1000 ml 900 ml 480 ml 1580 ml Output Total 600 ml 1600 ml 600 ml Balance 1000 ml -600 ml 900 ml 480 ml -1600 ml 980 ml Intake Oral 480 ml 480 ml IV Total 1000 ml 900 ml 1100 ml Output Urine Total 600 ml 1600 ml 600 ml # Voids 4 Result Diagram: 07/17/17 1130 07/19/17 0705 Imaging Last Impressions Carotid Artery Ultrasound 07/18/17 1918 Signed Impressions: CONCLUSION: 1. There is mild to moderate atherosclerotic plaquing at the right carotid bif urcation. There is mild elevation of the velocity in the right internal carotid artery. This suggests some mild to moderate stenosis. Recommend a CTA of the c arotids for further evaluation. 2. Mild atherosclerotic scarring plaquing at the left carotid bifurcation. Chest X-Ray 07/17/17 1357 Signed Impressions: Service Date/Time: Monday, July 17, 2017 14:03 - CONCLUSION: 1. Hypoinflation with bibasilar airspace disease. 2. Compensated cardiomegaly Raymon De Dios MD Renal Ultrasound 07/17/17 0000 Signed Impressions: Service Date/Time: Monday, July 17, 2017 16:57 - CONCLUSION: No evidence of hydronephrosis Maurice Worthington MD Lower Extremity Ultrasound 07/17/17 0000 Signed Impressions: Service Date/Time: Monday, July 17, 2017 14:44 - CONCLUSION: Negative exam. No sonographic or Doppler findings of deep venous thrombosis. Raymon De Dios MD Head CT 07/17/17 0000 Signed Impressions: Service Date/Time: Monday, July 17, 2017 08:47 - CONCLUSION: No acute intracranial injury Maurice Worthington MD Brain MRI 07/17/17 0000 Signed Impressions: Service Date/Time: Monday, July 17, 2017 16:30 - CONCLUSION: No acute intracranial findings Maurice Worthington MD Objective Remarks GENERAL: This is a well-nourished, well-developed patient, in no apparent distress. CARDIOVASCULAR: Regular rate and rhythm RESPIRATORY: Clear to auscultation. Breath sounds equal bilaterally. No wheezes , rales, or rhonchi. GASTROINTESTINAL: Abdomen soft, non-tender, nondistended. Normal active bowel sounds MUSCULOSKELETAL: Extremities without clubbing, cyanosis, 1+ edema NEURO: Alert & Oriented x3 to person, place, time. answers questions. Moves all ext x4 A/P Assessment and Plan 62 years old male with history of cerebral Palsy admitted for 1. Encephalopathy Likely secondary to concussion status post fall. The patient now is awake and alert oriented 3. As per previous documentation there was no actual seizure activity reported or witnessed. Cephalopathy could also have been secondary to seizure activity treated with neurology consult, EEG which showed mild diffuse encephalopathy. 2. History of cerebral palsy - Neuro checks hourly MRI brain-showed no acute findings EEG-currently pending; carotid ultrasound showed mild to moderate stenosis to the right; at this time due to his acute kidney injury would avoid further workup with CTA of the neck, continue with aspirin. Appreciate neurology consultation for further recommendations continue Neurontin- adjust for creatinine 3. Scalp laceration- s/p dermabond Acute respiratory failure in acute acidosis with decrease in MS - + patient was placed on 100% NRB by EVAC which can cause more C02 retention Back ground of COPD- requiring- per patient he is on 3- 4 LNC monitor MS avoid sedation 4. Acute Kidney injury -superimposed on chronic kidney disease stage III, overall night has improved. We will continue to monitor BUN/creatinine and avoid nephrotoxins. Renal ultrasound within normal limits.. 07/19 discontinue IV fluids. We will start the patient on Bumex 1 mg p.o. twice daily. Monitor BUN and creatinine, history I's and O's. 5. Hyperkalemia-resolved. Continue to monitor BMP. 6. History of BPH continue on flomax 7. History of hypertension Initially furosemide and losartan held due to acute kidney injury and mild hyperkalemia. Blood pressure now severely elevated into the 170's systolic. Start the patient on amlodipine 10 mg p.o. daily. Echo currently pending. 8. Peripheral Leg edema- mild 07/19 Negative for DVT. Suspect fluid overload. Start the patient on Bumex. 9. Right LE superficial wound wound care team consult Will start the patient on p.o. Keflex since there is some redness and possible developing cellulitis. 10. History of hypothyroidism- continue synthroid 11. Low Iron stores- on review of old labs. H and H within normal 5 06/19 iron within normal range. No further therapy indicated. Benny Garcia MD July 19, 2017 19:12
[2017-07-19] MEDS: ATORVASTATIN 20 MG TAB PO SCH (20:08)
[2017-07-20] VITALS (10 sets, daily range): BP systolic 114–160; BP diastolic 67–91; PULSE 64–79; RESP 18–22; TEMP 97.1–100.3; O2SAT 92–99
[2017-07-20] MEDS: RESP: ALBUTEROL 2.5 MG/IPRATROPIUM 0.5 MG NEB (SCH) NEB ×3 (03:34→20:25)
[2017-07-20] MEDS: ACETAMINOPHEN 325 MG TAB PO PRN ×4 (03:46→21:48)
[2017-07-20] MEDS ORDERED: SENNOSIDES 8.6 MG TAB PO PRN (08:15)
[2017-07-20] MEDS ORDERED: BISACODYL 10 MG SUPP RECTAL PRN (08:15)
[2017-07-20] MEDS: OFLOXACIN 0.3% OPTH SOLN 5 ML BTL LEFT EAR SCH (09:00)
[2017-07-20] MEDS: GABAPENTIN 300 MG CAP PO SCH ×2 (10:39→21:48)
[2017-07-20] MEDS: ASPIRIN EC 81 MG TABEC PO SCH (10:40)
[2017-07-20] MEDS: BACLOFEN 10 MG TAB PO SCH ×2 (10:41→21:49)
[2017-07-20] MEDS: PANTOPRAZOLE SOD 40 MG DELAYED RELEASE TAB PO SCH (10:41)
[2017-07-20] MEDS: TAMSULOSIN HCL 0.4 MG CAP PO SCH (10:42)
[2017-07-20] MEDS: DOCUSATE SODIUM 50 MG/SENNA 8.6 MG TAB PO SCH ×2 (10:42→21:45)
[2017-07-20] MEDS: BUMETANIDE 1 MG TAB PO SCH ×2 (10:42→18:20)
[2017-07-20] MEDS: ASCORBIC ACID 500 MG TAB PO SCH ×2 (10:43→21:51)
[2017-07-20] MEDS: HEPARIN SODIUM - SQ 10,000 UNITS/ML VIAL SQ SCH ×2 (10:44→21:00)
[2017-07-20] MEDS: MAGNESIUM HYDROXIDE SUSP 30 ML CUP PO PRN (10:48)
[2017-07-20 11:09] LABS: AUTOMATED NEUTROPHIL # 3.2 TH/MM3 (1.8-7.7); BASOPHIL % 0.9 % (0.0-2.0); EOSINOPHIL # 0.3 TH/MM3 (0-0.4); EOSINOPHIL % 7.1 % (0.0-4.0); HEMATOCRIT 38.6 % (39.0-51.0); HEMOGLOBIN 12.5 GM/DL (13.0-17.0); LYMPHOCYTE # 0.6 TH/MM3 (1.0-4.8); MEAN CELL VOLUME 90.2 FL (80.0-100.0); MEAN CORPUSCULAR HEMOGLOBIN 29.1 PG (27.0-34.0); MEAN CORPUSCULAR HGB CONC 32.3 % (32.0-36.0); MEAN PLATELET VOLUME 8.8 FL (7.0-11.0); MONO % 6.4 % (0.0-8.0); MONOCYTE # 0.3 TH/MM3 (0-0.9); NEUT % 71.6 % (16.0-70.0); PLATELET COUNT 149 TH/MM3 (150-450); RED BLOOD COUNT 4.28 MIL/MM3 (4.50-5.90); RED CELL DISTRIBUTION WIDTH 15.9 % (11.6-17.2); WHITE BLOOD COUNT 4.5 TH/MM3 (4.0-11.0)
[2017-07-20 11:26] LABS: ALBUMIN 3.3 GM/DL (3.4-5.0); ALT (GPT) 15 U/L (12-78); AST (GOT) 12 U/L (15-37); BICARBONATE 31.1 MEQ/L (21.0-32.0); BLOOD UREA NITROGEN 14 MG/DL (7-18); CALCIUM 8.9 MG/DL (8.5-10.1); CHLORIDE 104 MEQ/L (98-107); CREATININE 0.97 MG/DL (0.60-1.30); GLOMERULAR FILTRATION RATE 78 ML/MIN (>89); GLUCOSE,RANDOM 120 MG/DL (74-106); SODIUM (NA) 141 MEQ/L (136-145)
[2017-07-20 11:28] LABS: ALKALINE PHOSPHATASE 51 U/L (45-117); TOTAL BILIRUBIN ADULT 0.3 MG/DL (0.2-1.0); TOTAL PROTEIN 6.5 GM/DL (6.4-8.2)
--- NOTE | 2017-07-20 16:03 | HHI.PR ---
Subjective Remarks The patient complains of pain in the left upper quadrant and left side of his abdomen. Denies chest pain. Patient is currently on 4 L nasal cannula with an FiO2 45%. Objective Vitals Vital Signs Date Time Temp Pulse Resp B/P (MAP) Pulse Ox O2 Delivery O2 Flow Rate FiO2 07/20/17 14:23 4.00 07/20/17 12:35 98.9 76 20 160/91 (114) 92 07/20/17 09:10 94 Nasal Cannula 4.00 07/20/17 08:25 98.2 64 20 153/82 (105) 93 07/20/17 04:00 97.5 73 18 114/75 (88) 93 07/20/17 01:17 99 45 07/20/17 00:00 97.7 71 18 132/72 (92) 93 07/19/17 23:01 95 45 07/19/17 20:15 95 Nasal Cannula 4.00 07/19/17 20:00 99.5 84 18 169/80 (109) 93 07/19/17 16:00 98.4 74 18 176/96 (122) 93 I/O 07/19/17 07/19/17 07/19/17 07/20/17 07/20/17 07/20/17 07:00 15:00 23:00 07:00 15:00 23:00 Intake Total 480 ml 1780 ml Output Total 1600 ml 600 ml 475 ml Balance 480 ml -1600 ml 1180 ml -475 ml Intake Oral 480 ml 480 ml IV Total 1300 ml Output Urine Total 1600 ml 600 ml 475 ml # Voids 5 2 1 Result Diagram: 07/20/17 1036 07/20/17 1036 Imaging Last Impressions Carotid Artery Ultrasound 07/18/17 1918 Signed Impressions: CONCLUSION: 1. There is mild to moderate atherosclerotic plaquing at the right carotid bif urcation. There is mild elevation of the velocity in the right internal carotid artery. This suggests some mild to moderate stenosis. Recommend a CTA of the c arotids for further evaluation. 2. Mild atherosclerotic scarring plaquing at the left carotid bifurcation. Chest X-Ray 07/17/17 9631 Signed Impressions: Service Date/Time: Monday, July 17, 2017 14:03 - CONCLUSION: 1. Hypoinflation with bibasilar airspace disease. 2. Compensated cardiomegaly Raymon De Dios MD Renal Ultrasound 07/17/17 0000 Signed Impressions: Service Date/Time: Monday, July 17, 2017 16:57 - CONCLUSION: No evidence of hydronephrosis Maurice Worthington MD Lower Extremity Ultrasound 07/17/17 Signed Impressions: Service Date/Time: Monday, July 17, 2017 14:44 - CONCLUSION: Negative exam. No sonographic or Doppler findings of deep venous thrombosis. Raymon De Dios MD Head CT 07/17/17 Signed Impressions: Service Date/Time: Monday, July 17, 2017 08:47 - CONCLUSION: No acute intracranial injury Maurice Worthington MD Brain MRI 07/17/17 Signed Impressions: Service Date/Time: Monday, July 17, 2017 16:30 - CONCLUSION: No acute intracranial findings Maurice Worthington MD Objective Remarks GENERAL: This is a well-nourished, well-developed patient, in no apparent distress. CARDIOVASCULAR: Regular rate and rhythm RESPIRATORY: Clear to auscultation. Breath sounds equal bilaterally. No wheezes , rales, or rhonchi. GASTROINTESTINAL: Abdomen soft, non-tender, nondistended. Normal active bowel sounds MUSCULOSKELETAL: Extremities without clubbing, cyanosis, 1+ edema NEURO: Alert & Oriented x3 to person, place, time. answers questions. Moves all ext x4 A/P Problem List: (1) Encephalopathy ICD Code: G93.40 - Encephalopathy, unspecified Status: Resolved (2) Acute diastolic heart failure ICD Code: I50.31 - Acute diastolic (congestive) heart failure Status: Acute (3) Acute respiratory failure with hypoxia and hypercapnia ICD Code: J96.01 - Acute respiratory failure with hypoxia; J96.02 - Acute respiratory failure with hypercapnia Status: Acute (4) Abdominal pain ICD Code: R10.9 - Unspecified abdominal pain (5) Anemia ICD Code: D64.9 - Anemia, unspecified Status: Chronic (6) BPH (benign prostatic hyperplasia) ICD Code: N40.0 - Benign prostatic hyperplasia without lower urinary tract symptoms Status: Chronic (7) HTN (hypertension) ICD Code: I10 - Essential (primary) hypertension (8) Hypothyroidism ICD Code: E03.9 - Hypothyroidism, unspecified Assessment and Plan 62 years old male with history of cerebral Palsy admitted for 1. Encephalopathy Likely secondary to concussion status post fall. The patient now is awake and alert oriented 3. As per previous documentation there was no actual seizure activity reported or witnessed. Encephalopathy could also have been secondary to seizure activity treated with neurology consult, EEG which showed mild diffuse encephalopathy. Most likely encephalopathy secondary to hypercarbic hypoxemic respiratory failure. Treated with pulmonary consultation, 2. History of cerebral palsy MRI brain-showed no acute findings EEG-currently pending; carotid ultrasound showed mild to moderate stenosis to the right; a Appreciate neurology consultation for further recommendations continue Neurontin- adjust for creatinine Continue aspirin 07/[address] of the neck given that carotid ultrasound showed mild to moderate atherosclerotic plaquing at the right carotid bifurcation. Mild elevation of the velocity in the right internal carotid artery. CTA of the carotids recommended for further evaluation. 3. Scalp laceration- s/p dermabond Acute respiratory failure in acute acidosis with decrease in MS - + patient was placed on 100% NRB by EVAC which can cause more C02 retention Back ground of COPD- requiring- per patient he is on 3- 4 LNC monitor MS avoid sedation 4. Acute Kidney injury -superimposed on chronic kidney disease stage III, overall night has improved. We will continue to monitor BUN/creatinine and avoid nephrotoxins. Renal ultrasound within normal limits.. 07/19 discontinue IV fluids. We will start the patient on Bumex 1 mg p.o. twice daily. Monitor BUN and creatinine, history I's and O's. 5. Hyperkalemia-resolved. Continue to monitor BMP. 6. History of BPH continue on flomax 7. History of hypertension Initially furosemide and losartan held due to acute kidney injury and mild hyperkalemia. Blood pressure now severely elevated into the 170's systolic. Start the patient on amlodipine 10 mg p.o. daily. Echo currently pending. 8. Peripheral Leg edema- mild 07/19 Negative for DVT. Suspect fluid overload. Start the patient on Bumex. 9. Right LE superficial wound wound care team consult Will start the patient on p.o. Keflex since there is some redness and possible developing cellulitis. 10. History of hypothyroidism- continue synthroid 11. Low Iron stores- on review of old labs. H and H within normal 07/20 patient with slightly decreased percent saturation. 12. Abdominal pain/GERD/constipation Patient has not had a bowel movement in several days. Ordered constipation medication protocol. I will order abdominal ultrasound. Consult Neurology As Patient States Has Never Had a Colonoscopy in the past. We will start on bowel regimen for constipation. Currently on a PPI. 13. Acute hypercarbic and hypoxemic respiratory failure. The patient is still on elevated oxygen on 4 L nasal cannula. Suspect the patient has some degree of acute congestive diastolic heart failure. Patient had an echocardiogram on May 28, 2017 which showed a mildly dilated left ventricle. Mild concentric left ventricular hypertrophy. Left ventricular systolic function low normal with an estimated ejection fraction of 50-55%. Trace MR, posterior mitral valve leaflet prolapse, aortic valve sclerosis, trivial pulmonary valve regurgitation. Patient started on Bumex p.o. 1 mg p.o. twice daily. Continue. Continue supplemental oxygen to keep oxygen saturation more than 92%. We will place on scheduled DuoNeb treatments. Start the patient on prednisone orally. Discharge Planning Continue to monitor on the medical floor. Pending GI consultation, pending improvement of oxygen saturation. Problem Qualifiers (1) Abdominal pain: Qualified Codes: R10.12 - Left upper quadrant pain (2) Anemia: Qualified Codes: D50.9 - Iron deficiency anemia, unspecified Benny Garcia MD July 20, 2017 16:03
--- NOTE | 2017-07-20 16:48 | HHI.PR ---
Subjective Remarks ALERT NO DISTRESS ON O2 NC Objective Vital Signs Date Time Temp Pulse Resp B/P (MAP) Pulse Ox O2 Delivery O2 Flow Rate FiO2 07/20/17 16:07 100.3 73 20 153/80 (104) 92 07/20/17 14:23 4.00 07/20/17 12:35 98.9 76 20 160/91 (114) 92 07/20/17 09:10 94 Nasal Cannula 4.00 07/20/17 08:25 98.2 64 20 153/82 (105) 93 07/20/17 04:00 97.5 73 18 114/75 (88) 93 07/20/17 01:17 99 45 07/20/17 00:00 97.7 71 18 132/72 (92) 93 07/19/17 23:01 95 45 07/19/17 20:15 95 Nasal Cannula 4.00 07/19/17 20:00 99.5 84 18 169/80 (109) 93 I/O 07/19/17 07/19/17 07/19/17 07/20/17 07/20/17 07/20/17 07:00 15:00 23:00 07:00 15:00 23:00 Intake Total 480 ml 1780 ml 720 ml Output Total 1600 ml 600 ml 475 ml 350 ml Balance 480 ml -1600 ml 1180 ml -475 ml 370 ml Intake Oral 480 ml 480 ml 720 ml IV Total 1300 ml Output Urine Total 1600 ml 600 ml 475 ml 350 ml # Voids 5 2 1 # Bowel Movements 0 Result Diagram: 07/20/17 1036 07/20/17 1036 Objective Remarks GENERAL: ALERT, ORIENTED X 3 SKIN: Warm and dry. HEAD: Atraumatic. Normocephalic. EYES: Pupils equal and round. No scleral icterus. No injection or drainage. ENT: No nasal bleeding or discharge. Mucous membranes pink and moist. NECK: Trachea midline. No JVD. CARDIOVASCULAR: Regular rate and rhythm. RESPIRATORY: No accessory muscle use. Clear to auscultation. Breath sounds equal bilaterally. GASTROINTESTINAL: Abdomen soft, non-tender, nondistended. Hepatic and splenic margins not palpable. MUSCULOSKELETAL: Extremities without clubbing, cyanosis, or edema. No obvious deformities. NEUROLOGICAL: Awake and alert. No obvious cranial nerve deficits. Motor grossly within normal limits. Five out of 5 muscle strength in the arms and legs. Normal speech. PSYCHIATRIC: Appropriate mood and affect; insight and judgment normal. Assessment and Plan Assessment and Plan IMPRESSION RESPIRATORY FAILURE ? COPD EDB ? MAGUI/CSA PLAN O2 NEEDED BRONCHODILATOR TRHERAPY NPSG POST DC Aron Sharp MD July 20, 2017 16:48
[2017-07-20] MEDS: ALUMINUM/MAGNESIUM/SIMETH 30 ML CUP PO PRN (18:19)
--- NOTE | 2017-07-20 21:03 | RADRPT ---
EXAM DATE: 07/20/2017 8:56 PM EDT AGE/SEX: 62 years / Male INDICATIONS: Fever and short of breath. CLINICAL DATA: This is the patient's subsequent encounter. Patient reports that signs and symptoms h ave been present for 2 days and indicates a pain score of 0/10. MEDICAL/SURGICAL HISTORY: . Congestive heart failure. Hypercholesterolemia. Hypertension. Hypot hyroidism. Cerebral palsy. . . Hernia repair. Scalp laceration/dermabond. Eye surgery. COMPARISON: [facility] [place], CHEST SINGLE AP, 07/17/2017. . FINDINGS: A single AP portable erect view of the chest was obtained. The study is mid inspiratory with crowding of vasculature. There is no infiltrates or effusions. The heart size remains mildly prominent. The b alessio thorax is intact. CONCLUSION: Limited mid inspiratory study with no acute cardiopulmonary disease. Electronically signed by: Jenaro Morrison MD 07/20/2017 9:01 PM EDT
[2017-07-20] MEDS: ATORVASTATIN 20 MG TAB PO SCH (21:46)
[2017-07-20] MEDS: guaiFENesin E.R. 600 MG TAB PO SCH (21:48)
[2017-07-20] MEDS: predniSONE 20 MG TAB PO SCH (21:49)
[2017-07-21] VITALS: BP 129/77; PULSE 55; RESP 22; TEMP 98.6; O2SAT 92
[2017-07-21] MEDS: ACETAMINOPHEN 325 MG TAB PO PRN ×3 (03:31→18:01)
[2017-07-21 04:00] VITALS: BP 129/73; PULSE 64; RESP 22; TEMP 98.6; O2SAT 95
[2017-07-21] MEDS: LEVOTHYROXINE SODIUM 150 MCG TAB PO SCH (06:00)
[2017-07-21] MEDS: BUMETANIDE 1 MG TAB PO SCH (07:48)
[2017-07-21] MEDS: ASCORBIC ACID 500 MG TAB PO SCH ×2 (07:48→21:30)
[2017-07-21] MEDS: PANTOPRAZOLE SOD 40 MG DELAYED RELEASE TAB PO SCH (07:49)
[2017-07-21] MEDS: TAMSULOSIN HCL 0.4 MG CAP PO SCH (07:50)
[2017-07-21] MEDS: BACLOFEN 10 MG TAB PO SCH ×2 (07:50→21:22)
[2017-07-21] MEDS: ASPIRIN EC 81 MG TABEC PO SCH (07:51)
[2017-07-21] MEDS: GABAPENTIN 300 MG CAP PO SCH ×2 (07:52→21:22)
[2017-07-21] MEDS: DOCUSATE SODIUM 50 MG/SENNA 8.6 MG TAB PO SCH ×2 (07:52→21:22)
[2017-07-21] MEDS: predniSONE 20 MG TAB PO SCH ×2 (07:52→21:22)
[2017-07-21] MEDS: HEPARIN SODIUM - SQ 10,000 UNITS/ML VIAL SQ SCH ×2 (07:53→21:00)
[2017-07-21] MEDS: guaiFENesin E.R. 600 MG TAB PO SCH ×2 (07:53→21:23)
[2017-07-21] MEDS: OFLOXACIN 0.3% OPTH SOLN 5 ML BTL LEFT EAR SCH (07:53)
[2017-07-21] MEDS: LACTULOSE SYRUP 20 GM/30 ML CUP PO PRN (08:25)
[2017-07-21 08:39] LABS: BILIRUBIN, URINE NEG (NEG); BLOOD, URINE NEG (NEG); GLUCOSE,URINE NEG (NEG); HYALINE CAST, URINE 17 /lpf (RARE); KETONE, URINE NEG (NEG); MUCUS URINE FEW /lpf (OCC); NITRITE,URINE NEG (NEG); URINE COLOR YELLOW (YELLW/STRAW); URINE LEUKOCYTE ESTERASE NEG (NEG)
[2017-07-21] MEDS: RESP: ALBUTEROL 2.5 MG/IPRATROPIUM 0.5 MG NEB (SCH) NEB ×3 (09:26→20:10)
[2017-07-21 09:38] VITALS: BP 125/74; PULSE 69; RESP 19; TEMP 98.4; O2SAT 98
--- NOTE | 2017-07-21 10:50 | HHI.PR ---
Subjective Remarks no new spells bipap last pm Objective Vital Signs Date Time Temp Pulse Resp B/P (MAP) Pulse Ox O2 Delivery O2 Flow Rate FiO2 07/21/17 09:38 98.4 69 19 125/74 (91) 98 07/21/17 04:00 98.6 64 22 129/73 (91) 95 07/21/17 03:54 Nasal Cannula 3.00 07/21/17 00:00 98.6 55 22 129/77 (94) 92 07/20/17 20:42 93 45 07/20/17 20:27 93 Nasal Cannula 3.00 07/20/17 20:00 97.1 79 22 116/67 (83) 95 07/20/17 19:00 Nasal Cannula 4.00 45 07/20/17 16:07 100.3 73 20 153/80 (104) 92 07/20/17 14:23 4.00 07/20/17 12:35 98.9 76 20 160/91 (114) 92 I/O 07/20/17 07/20/17 07/20/17 07/21/17 07/21/17 07/21/17 07:00 15:00 23:00 07:00 15:00 23:00 Intake Total 1720 ml 480 ml Output Total 475 ml 2150 ml 1400 ml Balance -475 ml -430 ml -920 ml Intake Oral 1720 ml 480 ml Output Urine Total 475 ml 2150 ml 1400 ml # Voids 2 1 # Bowel Movements 2 0 Result Diagram: 07/20/17 1036 07/20/17 1036 Objective Remarks awake alert dysarthric energetic mioves all well still Assessment and Plan Assessment and Plan imp fu eeg and us both neg pulm consult on case mri neg unclear if sz or not or just hypercapnea oob recheck abg inc paco2 retainer ok neurowise i will sign off Judd Griffin MD July 21, 2017 10:50
[2017-07-21] MEDS: ALUMINUM/MAGNESIUM/SIMETH 30 ML CUP PO PRN ×3 (11:27→21:21)
--- NOTE | 2017-07-21 14:13 | PQ ---
Physician Query Response Document PATIENT: STAN MOMIN : 1955 ADMIT DATE: 07/17/2017 1:36 PM DISCH DATE: RESPONDING PROVIDER #: [email or web address] QUERY TEXT: CDS Clarification Metabolic encephalopathy in the setting of Altered Mental Status- possible seizure activity treated w ith neurology consult, EEG, Neuro checks Other explanation of clinical findings. Unable to determine (no explanation for clinical findings). The patient's Clinical Indicators include: The medical record reflects the following clinical findings, treatment, and risk factors. * Clinical Indicators: Acute acidosis, AMS, possible seizure activity, confusion * Risk Factors: Fall with scalp laceration * Treatment: neurology consult, EEG, Neuro checks, Telemtry, labs Please clarify and document your clinical opinion in the progress notes and discharge summary includi ng the definitive and/or presumptive diagnosis (suspected or probable), related to the above clinical findings. Please include clinical findings supporting your diagnosis. Thank you, Keisha Montilla : CDS/RN ext. [phone] Query created by: Keisha Montilla on 07/18/2017 11:20 AM RESPONSE TEXT: Metabolic encephalopathy in setting of respiratory acidosis Electronically signed by: Dandre Castillo MD (Ginny) 07/21/2017 2:09 PM
[2017-07-21 15:26] LABS: BICARBONATE 27.9 MEQ/L (21.0-32.0); CALCIUM 9.3 MG/DL (8.5-10.1); CREATININE 1.3 MG/DL (0.60-1.30)
[2017-07-21 16:00] VITALS: BP 129/82; PULSE 74; RESP 18; TEMP 98.3; O2SAT 99
--- NOTE | 2017-07-21 16:45 | HHI.PR ---
Subjective Remarks Deferred entry, the patient was seen at 2 PM. The patient states her breathing is improving. Denies chest pain. Afebrile. Objective Vitals Vital Signs Date Time Temp Pulse Resp B/P (MAP) Pulse Ox O2 Delivery O2 Flow Rate FiO2 07/21/17 09:38 98.4 69 19 125/74 (91) 98 07/21/17 04:00 98.6 64 22 129/73 (91) 95 07/21/17 03:54 Nasal Cannula 3.00 07/21/17 00:00 98.6 55 22 129/77 (94) 92 07/20/17 20:42 93 45 07/20/17 20:27 93 Nasal Cannula 3.00 07/20/17 20:00 97.1 79 22 116/67 (83) 95 07/20/17 19:00 Nasal Cannula 4.00 45 I/O 07/20/17 07/20/17 07/20/17 07/21/17 07/21/17 07/21/17 07:00 15:00 23:00 07:00 15:00 23:00 Intake Total 1720 ml 480 ml Output Total 475 ml 2150 ml 1400 ml 950 ml Balance -475 ml -430 ml -920 ml -950 ml Intake Oral 1720 ml 480 ml Output Urine Total 475 ml 2150 ml 1400 ml 950 ml # Voids 2 1 # Bowel Movements 2 0 Result Diagram: 07/20/17 1036 07/21/17 1425 Imaging Last Impressions Chest X-Ray 07/20/17 0000 Signed Impressions: CONCLUSION: Limited mid inspiratory study with no acute cardiopulmonary disease. Carotid Artery Ultrasound 07/18/17 1918 Signed Impressions: CONCLUSION: 1. There is mild to moderate atherosclerotic plaquing at the right carotid bif urcation. There is mild elevation of the velocity in the right internal carotid artery. This suggests some mild to moderate stenosis. Recommend a CTA of the c arotids for further evaluation. 2. Mild atherosclerotic scarring plaquing at the left carotid bifurcation. Renal Ultrasound 07/17/17 0000 Signed Impressions: Service Date/Time: Monday, July 17, 2017 16:57 - CONCLUSION: No evidence of hydronephrosis Maurice Worthington MD Lower Extremity Ultrasound 07/17/17 0000 Signed Impressions: Service Date/Time: Monday, July 17, 2017 14:44 - CONCLUSION: Negative exam. No sonographic or Doppler findings of deep venous thrombosis. Raymon De Dios MD Head CT 07/17/17 0000 Signed Impressions: Service Date/Time: Monday, July 17, 2017 08:47 - CONCLUSION: No acute intracranial injury Maurice Worthington MD Brain MRI 07/17/17 0000 Signed Impressions: Service Date/Time: Monday, July 17, 2017 16:30 - CONCLUSION: No acute intracranial findings Maurice Worthington MD Objective Remarks GENERAL: This is a well-nourished, well-developed patient, in no apparent distress. CARDIOVASCULAR: Regular rate and rhythm RESPIRATORY: Overall diminished bilateral breath sounds. No rales rhonchi or wheezing auscultated. GASTROINTESTINAL: Abdomen soft, non-tender, nondistended. Normal active bowel sounds MUSCULOSKELETAL: Extremities without clubbing, cyanosis, 1+ edema NEURO: Alert & Oriented x3 to person, place, time. answers questions. Moves all ext x4 A/P Problem List: (1) Encephalopathy ICD Code: G93.40 - Encephalopathy, unspecified Status: Resolved (2) Acute diastolic heart failure ICD Code: I50.31 - Acute diastolic (congestive) heart failure Status: Acute (3) Acute respiratory failure with hypoxia and hypercapnia ICD Code: J96.01 - Acute respiratory failure with hypoxia; J96.02 - Acute respiratory failure with hypercapnia Status: Acute (4) Abdominal pain ICD Code: R10.9 - Unspecified abdominal pain (5) Anemia ICD Code: D64.9 - Anemia, unspecified Status: Chronic (6) BPH (benign prostatic hyperplasia) ICD Code: N40.0 - Benign prostatic hyperplasia without lower urinary tract symptoms Status: Chronic (7) HTN (hypertension) ICD Code: I10 - Essential (primary) hypertension (8) Hypothyroidism ICD Code: E03.9 - Hypothyroidism, unspecified Assessment and Plan 62 years old male with history of cerebral Palsy admitted for 1. Encephalopathy Likely secondary to concussion status post fall. The patient now is awake and alert oriented 3. As per previous documentation there was no actual seizure activity reported or witnessed. Encephalopathy could also have been secondary to seizure activity treated with neurology consult, EEG which showed mild diffuse encephalopathy. Most likely encephalopathy secondary to hypercarbic hypoxemic respiratory failure. Treated with pulmonary consultation. 2. History of cerebral palsy MRI brain-showed no acute findings EEG-currently pending; carotid ultrasound showed mild to moderate stenosis to the right; a Appreciate neurology consultation for further recommendations continue Neurontin- adjust for creatinine Continue aspirin 07/[address] of the neck given that carotid ultrasound showed mild to moderate atherosclerotic plaquing at the right carotid bifurcation. Mild elevation of the velocity in the right internal carotid artery. CTA of the carotids recommended for further evaluation. 3. Scalp laceration- s/p dermabond Acute respiratory failure in acute acidosis with decrease in MS - + patient was placed on 100% NRB by EVAC which can cause more C02 retention Back ground of COPD- requiring- per patient he is on 3- 4 LNC monitor MS avoid sedation 4. Acute Kidney injury -superimposed on chronic kidney disease stage III, overall night has improved. We will continue to monitor BUN/creatinine and avoid nephrotoxins. Renal ultrasound within normal limits.. 07/19 discontinue IV fluids. We will start the patient on Bumex 1 mg p.o. twice daily. Monitor BUN and creatinine, history I's and O's. 07/21 decrease dose of Bumex to 1 mg p.o. daily. Creatinine starting to race from 0.97-1.3. 5. Hyperkalemia-resolved. Continue to monitor BMP. 6. History of BPH continue on flomax 7. History of hypertension Initially furosemide and losartan held due to acute kidney injury and mild hyperkalemia. Blood pressure now severely elevated into the 170's systolic. Start the patient on amlodipine 10 mg p.o. daily. Echo currently pending. 8. Peripheral Leg edema- mild 07/19 Negative for DVT. Suspect fluid overload. Start the patient on Bumex. 9. Right LE superficial wound wound care team consult Will start the patient on p.o. Keflex since there is some redness and possible developing cellulitis. 10. History of hypothyroidism- continue synthroid 11. Low Iron stores- on review of old labs. H and H within normal 07/21 patient with slightly decreased percent saturation. We will start oral iron. 12. Abdominal pain/GERD/constipation Patient has not had a bowel movement in several days. Ordered constipation medication protocol. I will order abdominal ultrasound. Consult Neurology As Patient States Has Never Had a Colonoscopy in the past. We will start on bowel regimen for constipation. Currently on a PPI. 13. Acute hypercarbic and hypoxemic respiratory failure. The patient is still on elevated oxygen on 4 L nasal cannula. Suspect the patient has some degree of acute congestive diastolic heart failure. Patient had an echocardiogram on May 28, 2017 which showed a mildly dilated left ventricle. Mild concentric left ventricular hypertrophy. Left ventricular systolic function low normal with an estimated ejection fraction of 50-55%. Trace MR, posterior mitral valve leaflet prolapse, aortic valve sclerosis, trivial pulmonary valve regurgitation. 07/21 Continue supplemental oxygen to keep oxygen saturation more than 92%. Continue DuoNeb treatments. Continue prednisone orally. Decrease Bumex dose to 1 mg p.o. daily. Patient's oxygen requirement is improving. Discharge Planning Continue to monitor on the medical floor. Discharge on patient's oxygen requirement goes down to minimal. Possible discharge in a.m. Problem Qualifiers (1) Abdominal pain: Qualified Codes: R10.12 - Left upper quadrant pain (2) Anemia: Qualified Codes: D50.9 - Iron deficiency anemia, unspecified Benny Garcia MD July 21, 2017 16:45
--- NOTE | 2017-07-21 16:52 | HHI.PR ---
Subjective Remarks ALERT NO DISTRESS ON O2 NC Objective Vital Signs Date Time Temp Pulse Resp B/P (MAP) Pulse Ox O2 Delivery O2 Flow Rate FiO2 07/21/17 09:38 98.4 69 19 125/74 (91) 98 07/21/17 04:00 98.6 64 22 129/73 (91) 95 07/21/17 03:54 Nasal Cannula 3.00 07/21/17 00:00 98.6 55 22 129/77 (94) 92 07/20/17 20:42 93 45 07/20/17 20:27 93 Nasal Cannula 3.00 07/20/17 20:00 97.1 79 22 116/67 (83) 95 07/20/17 19:00 Nasal Cannula 4.00 45 I/O 07/20/17 07/20/17 07/20/17 07/21/17 07/21/17 07/21/17 07:00 15:00 23:00 07:00 15:00 23:00 Intake Total 1720 ml 480 ml Output Total 475 ml 2150 ml 1400 ml 950 ml Balance -475 ml -430 ml -920 ml -950 ml Intake Oral 1720 ml 480 ml Output Urine Total 475 ml 2150 ml 1400 ml 950 ml # Voids 2 1 # Bowel Movements 2 0 Result Diagram: 07/20/17 1036 07/21/17 1425 Objective Remarks GENERAL: ALERT, ORIENTED X 3 SKIN: Warm and dry. HEAD: Atraumatic. Normocephalic. EYES: Pupils equal and round. No scleral icterus. No injection or drainage. ENT: No nasal bleeding or discharge. Mucous membranes pink and moist. NECK: Trachea midline. No JVD. CARDIOVASCULAR: Regular rate and rhythm. RESPIRATORY: No accessory muscle use. Clear to auscultation. Breath sounds equal bilaterally. GASTROINTESTINAL: Abdomen soft, non-tender, nondistended. Hepatic and splenic margins not palpable. MUSCULOSKELETAL: Extremities without clubbing, cyanosis, or edema. No obvious deformities. NEUROLOGICAL: Awake and alert. No obvious cranial nerve deficits. Motor grossly within normal limits. Five out of 5 muscle strength in the arms and legs. Normal speech. PSYCHIATRIC: Appropriate mood and affect; insight and judgment normal. Assessment and Plan Assessment and Plan IMPRESSION RESPIRATORY FAILURE ? COPD EDS ? MAGUI/CSA PLAN O2 NEEDED BRONCHODILATOR TRHERAPY NPSG POST DC Aron Sharp MD July 21, 2017 16:52
[2017-07-21] MEDS ORDERED: IOHEXOL 350 MG/ML 10 ML VIAL (for RAD DIAG) IVCONTRAST ONE (17:00)
--- NOTE | 2017-07-21 17:43 | RADRPT ---
EXAM DATE: 07/21/2017 5:27 PM EDT AGE/SEX: 62 years / Male INDICATIONS: Syncope. Abnormal ultrasound. CLINICAL DATA: This is the patient's initial encounter. Patient reports that signs and symptoms have been present for 1 day and indicates a pain score of 0/10. MEDICAL/SURGICAL HISTORY: Congestive heart failure. Hypertension. None. RADIATION DOSE: 11.17 CTDI (mGy) COMPARISON: No prior [facility] exams available for comparison. TECHNIQUE: Volumetric scanning was performed using a multirow detector CT scanner during bolus infus ion of 80 ml Omnipaque 350 (iohexol) nonionic water-soluble contrast as a single exam dose. The da ta was postprocessed with a variety of visualization algorithms including full-volume maximum intensi ty projection, multiplanar sliding thin-slab reformation, curved-planar reformation, and surface-rend ering techniques. Using automated exposure control and adjustment of the mA and/or kV according to p atient size, radiation dose was kept as low as reasonably achievable to obtain optimal diagnostic ivette lity images. FINDINGS: Aortic Arch: There is variant arch anatomy with direct origin of the left vertebral artery from the aortic arch. The arch vessels are widely patent. Right Carotid: Eccentric plaque involving the proximal right ICA produces about 30% stenotic narrowi ng. Beyond this, the vessel is relatively healthy in appearance with mild tortuosity, widely patent t o the skull base. Left Carotid: The common carotid artery is intact. The carotid bulb has a normal configuration with out ulceration or narrowing. The internal carotid artery lumen is smooth without stenosis. Moderate tortuosity The external carotid artery is intact. Vertebrals: The vertebral arteries have a symmetric diameter. No stenotic lesions are seen. Elevated flow velocities and ICA/CCA ratios have been found to correlate with increased degrees of ve ssel stenosis, calculated as percentage of diameter relative to a normal segment of distal ICA/CCA. CONCLUSION: 30% proximal right ICA stenosis. Electronically signed by: Maurice Worthington MD 07/21/2017 5:42 PM EDT
--- NOTE | 2017-07-21 18:12 | ECHRPT ---
Indication: HYPERTENSIVE HEART DISEASE CONCLUSIONS The left ventricular systolic function is normal with an estimated ejection fraction in the range of 55-60%. Normal left ventricular size. Bkje-ax-gmltwabn concentric left ventricular hypertrophy. No regional wall motion abnormalities are present. Posterior mitral valve leaflet prolapse. Trace mitral valve regurgitation. BP: 141 / 75 HR: 66 Rhythm: MEASUREMENTS (Male / Female) Normal Values Technical Quality: 2D ECHO LV Diastolic Diameter PLAX 4.5 cm 4.2 - 5.9 / 3.9 - 5.3 cm LV Systolic Diameter PLAX 3.3 cm IVS Diastolic Thickness 1.4 cm 0.6 - 1.0 / 0.6 - 0.9 cm LVPW Diastolic Thickness 1.4 cm 0.6 - 1.0 / 0.6 - 0.9 cm LV Relative Wall Thickness 0.6 RV Internal Dim ED PLAX 3.3 cm LVOT Diameter 1.8 cm LA Systolic Diameter LX 4.0 cm 3.0 - 4.0 / 2.7 - 3.8 cm LV Ejection Fraction MOD 4C 60.1 % LV Cardiac Index MOD 4C 2951.5 cm/minm LV Ejection Fraction 4C AL 62.5 % LV Cardiac Index 4C AL 3184.4 cm/minm M-MODE Aortic Root Diameter MM 2.3 cm LA Systolic Diameter MM 4.0 cm LA Ao Ratio MM 1.7 AV Cusp Separation MM 1.7 cm FINDINGS LEFT VENTRICLE The left ventricular systolic function is normal with an estimated ejection fraction in the range of 55-60%. Normal left ventricular size. [id number]-[id number] concentric left ventricular hypertrophy. No regional wall motion abnormalities are present. RIGHT VENTRICLE Normal right ventricular size and systolic function. LEFT ATRIUM The left atrial size is normal. RIGHT ATRIUM The right atrial size is normal. ATRIAL SEPTUM Normal atrial septal thickness without atrial level shunting by limited color doppler interrogation. AORTA The aortic root and proximal ascending aorta are normal in size on limited imaging. MITRAL VALVE Posterior mitral valve leaflet prolapse. Structurally normal mitral valve. Trace mitral valve regurgitation. AORTIC VALVE Trileaflet aortic valve. No aortic valve stenosis or regurgitation. TRICUSPID VALVE Structurally normal tricuspid valve. No tricuspid valve stenosis or regurgitation. PULMONARY VALVE The pulmonary valve is not well visualized. VESSELS The inferior vena cava is normal in size. PERICARDIUM No pericardial effusion. Wong Motta MD, FACC Edited by: traffic administrator traffic administrator (Electronically Signed) Final Date:19 Jul 2017 13:21 Amended: 21 Jul 2017 18:11
[2017-07-21 20:10] VITALS: O2SAT 99
[2017-07-21] MEDS: ATORVASTATIN 20 MG TAB PO SCH (21:21)
[2017-07-21] MEDS: MAGNESIUM HYDROXIDE SUSP 30 ML CUP PO PRN (21:22)
[2017-07-22] VITALS (8 sets, daily range): BP systolic 126–133; BP diastolic 66–86; PULSE 68–90; RESP 16–20; TEMP 97.5–98.7; O2SAT 92–95
[2017-07-22 04:49] LABS: HEMATOCRIT 40.7 % (39.0-51.0); HEMOGLOBIN 13.6 GM/DL (13.0-17.0); MEAN CELL VOLUME 89.1 FL (80.0-100.0); MEAN CORPUSCULAR HEMOGLOBIN 29.7 PG (27.0-34.0); MEAN CORPUSCULAR HGB CONC 33.3 % (32.0-36.0); PLATELET COUNT 174 TH/MM3 (150-450); RED BLOOD COUNT 4.57 MIL/MM3 (4.50-5.90); RED CELL DISTRIBUTION WIDTH 15.6 % (11.6-17.2); WHITE BLOOD COUNT 6.1 TH/MM3 (4.0-11.0)
[2017-07-22 05:07] LABS: BICARBONATE 33.9 MEQ/L (21.0-32.0); CALCIUM 9.3 MG/DL (8.5-10.1); CREATININE 1.09 MG/DL (0.60-1.30)
[2017-07-22] MEDS: LEVOTHYROXINE SODIUM 150 MCG TAB PO SCH (05:59)
[2017-07-22] MEDS: ALUMINUM/MAGNESIUM/SIMETH 30 ML CUP PO PRN ×2 (05:59→20:32)
[2017-07-22] MEDS: LACTULOSE SYRUP 20 GM/30 ML CUP PO PRN (05:59)
[2017-07-22] MEDS: ACETAMINOPHEN 325 MG TAB PO PRN ×2 (05:59→20:32)
[2017-07-22] MEDS: RESP: ALBUTEROL 2.5 MG/IPRATROPIUM 0.5 MG NEB (SCH) NEB ×3 (08:35→20:42)
[2017-07-22] MEDS: predniSONE 20 MG TAB PO SCH ×2 (08:57→20:34)
[2017-07-22] MEDS: BACLOFEN 10 MG TAB PO SCH ×2 (08:57→20:34)
[2017-07-22] MEDS: DOCUSATE SODIUM 50 MG/SENNA 8.6 MG TAB PO SCH ×2 (08:58→20:35)
[2017-07-22] MEDS: TAMSULOSIN HCL 0.4 MG CAP PO SCH (08:58)
[2017-07-22] MEDS: ASCORBIC ACID 500 MG TAB PO SCH ×2 (08:58→20:34)
[2017-07-22] MEDS: BUMETANIDE 1 MG TAB PO SCH (08:58)
[2017-07-22] MEDS: guaiFENesin E.R. 600 MG TAB PO SCH ×2 (08:58→20:34)
[2017-07-22] MEDS: ASPIRIN EC 81 MG TABEC PO SCH (08:58)
[2017-07-22] MEDS: PANTOPRAZOLE SOD 40 MG DELAYED RELEASE TAB PO SCH (08:58)
[2017-07-22] MEDS: GABAPENTIN 300 MG CAP PO SCH ×2 (08:58→20:34)
[2017-07-22] MEDS: OFLOXACIN 0.3% OPTH SOLN 5 ML BTL LEFT EAR SCH (08:59)
[2017-07-22] MEDS: HEPARIN SODIUM - SQ 10,000 UNITS/ML VIAL SQ SCH ×2 (08:59→20:35)
--- NOTE | 2017-07-22 13:45 | HHI.PR ---
Subjective Remarks Follow-up for shortness of breath Patient says shortness of breath is almost back to normal, on oxygen at home. Will reconsider CPAP. No further confusion. Objective Vitals Vital Signs Date Time Temp Pulse Resp B/P (MAP) Pulse Ox O2 Delivery O2 Flow Rate FiO2 07/22/17 12:00 97.5 90 20 133/66 (88) 93 07/22/17 08:53 16 07/22/17 08:37 94 Nasal Cannula 3.00 07/22/17 08:00 97.8 73 19 126/75 (92) 92 07/22/17 08:00 94 Nasal Cannula 4.00 07/22/17 00:34 92 45 07/22/17 00:00 98.2 68 16 126/86 (99) 93 07/21/17 20:10 99 Nasal Cannula 3.00 07/21/17 19:00 Nasal Cannula 3.00 45 07/21/17 18:07 Nasal Cannula 3.00 07/21/17 16:00 98.3 74 18 129/82 (98) 99 I/O 07/21/17 07/21/17 07/21/17 07/22/17 07/22/17 07/22/17 07:00 15:00 23:00 07:00 15:00 23:00 Intake Total 480 ml Output Total 1400 ml 950 ml 650 ml Balance -920 ml -950 ml -650 ml Intake Oral 480 ml Output Urine Total 1400 ml 950 ml 650 ml # Voids 1 # Bowel Movements 0 Result Diagram: 07/22/17 0415 07/22/17 0415 Objective Remarks GENERAL: Not in distress. CARDIOVASCULAR: Regular rate and rhythm RESPIRATORY: Overall diminished bilateral breath sounds. No rales rhonchi or wheezing auscultated. GASTROINTESTINAL: Abdomen soft, non-tender, nondistended. Normal active bowel sounds MUSCULOSKELETAL: Extremities without clubbing, cyanosis, 1+ edema, right lower extremity, lateral aspect of the calf with mild redness and tenderness. NEURO: Alert & Oriented x3 to person, place, time. answers questions. Moves all ext x4 A/P Problem List: (1) Encephalopathy ICD Code: G93.40 - Encephalopathy, unspecified Status: Resolved (2) Acute diastolic heart failure ICD Code: I50.31 - Acute diastolic (congestive) heart failure Status: Acute (3) Acute respiratory failure with hypoxia and hypercapnia ICD Code: J96.01 - Acute respiratory failure with hypoxia; J96.02 - Acute respiratory failure with hypercapnia Status: Acute (4) Abdominal pain ICD Code: R10.9 - Unspecified abdominal pain (5) Anemia ICD Code: D64.9 - Anemia, unspecified Status: Chronic (6) BPH (benign prostatic hyperplasia) ICD Code: N40.0 - Benign prostatic hyperplasia without lower urinary tract symptoms Status: Chronic (7) HTN (hypertension) ICD Code: I10 - Essential (primary) hypertension (8) Hypothyroidism ICD Code: E03.9 - Hypothyroidism, unspecified Assessment and Plan 62 years old male with history of cerebral Palsy admitted for 1. Encephalopathy Likely secondary to concussion status post fall. The patient now is awake and alert oriented 3. As per previous documentation there was no actual seizure activity reported or witnessed. Encephalopathy could also have been secondary to seizure activity seen by neurology, cleared, EEG which showed mild diffuse encephalopathy. Most likely encephalopathy secondary to hypercarbic hypoxemic respiratory failure. 2. History of cerebral palsy MRI brain-showed no acute findings EEG-currently pending; carotid ultrasound showed mild to moderate stenosis to the right; a Appreciate neurology consultation for further recommendations continue Neurontin- adjust for creatinine Continue aspirin, carotid ultrasound showed mild to moderate atherosclerotic plaquing at the right carotid bifurcation. Mild elevation of the velocity in the right internal carotid artery. CTA of the carotids showed 30% stenosis on the right 3. Scalp laceration- s/p dermabond Acute respiratory failure in acute acidosis with decrease in MS - + patient was placed on 100% NRB by EVAC which can cause more C02 retention Back ground of COPD- 02 requiring- per patient he is on 3- 4 LNC 4. Acute Kidney injury -superimposed on chronic kidney disease stage III, overall night has improved. We will continue to monitor BUN/creatinine and avoid nephrotoxins. Renal ultrasound within normal limits. Continue Bumex 1 mg daily. Monitor BMP. 5. Hyperkalemia-resolved. Continue to monitor BMP. 6. History of BPH continue on flomax 7. History of hypertension - continue losartan, norvasc and bumex Initially furosemide and losartan held due to acute kidney injury and mild hyperkalemia. Blood pressure now severely elevated into the 170's systolic. Start the patient on amlodipine 10 mg p.o. daily. Echocardiogram ejection fraction 55-60% . Unremarkable. 8. Peripheral Leg edema- mild. Negative for DVT. Suspect fluid overload. Continue Bumex. 9. Right LE superficial wound wound care team consult, Will start the patient on p.o. Keflex since there is some redness and possible developing cellulitis. 10. History of hypothyroidism- continue synthroid 12. Abdominal pain/GERD/constipation- resolved 13. Acute hypercarbic and hypoxemic respiratory failure. The patient is still on elevated oxygen on 4 L nasal cannula.Suspect the patient has some degree of acute congestive diastolic heart failure. Patient had an echocardiogram on May 28, 2017 which showed a mildly dilated left ventricle. Mild concentric left ventricular hypertrophy. Left ventricular systolic function low normal with an estimated ejection fraction of 50-55%. Trace MR, posterior mitral valve leaflet prolapse, aortic valve sclerosis, trivial pulmonary valve regurgitation. Continue duonebs, supplemental oxygen to keep oxygen saturation more than 92%. Taper prednisone, pulmonary following, possible sleep apnea, recommending sleep study as outpatient. Discharge Planning Continue to monitor on the medical floor. Discharge on patient's oxygen requirement goes down to minimal. Possible discharge in a.m. Problem Qualifiers (1) Abdominal pain: Qualified Codes: R10.12 - Left upper quadrant pain (2) Anemia: Qualified Codes: D50.9 - Iron deficiency anemia, unspecified Inna Garcia MD July 22, 2017 13:45
[2017-07-22] MEDS: CEPHALEXIN MONOHYDRATE 500 MG CAP PO SCH (20:34)
[2017-07-22] MEDS: ATORVASTATIN 20 MG TAB PO SCH (20:34)
[2017-07-22] MEDS ORDERED: guaiFENesin SOLUTION 200 MG/10 ML CUP PO ONE (22:45)
[2017-07-23] VITALS: BP 132/77; PULSE 59; RESP 18; TEMP 97.4; O2SAT 93
[2017-07-23] MEDS: MAGNESIUM HYDROXIDE SUSP 30 ML CUP PO PRN (00:40)
--- NOTE | 2017-07-23 01:05 | HHI.PR ---
Subjective Remarks ALERT NO DISTRESS ON O2 NC Objective Vital Signs Date Time Temp Pulse Resp B/P (MAP) Pulse Ox O2 Delivery O2 Flow Rate FiO2 07/23/17 00:00 97.4 59 18 132/77 (95) 93 07/22/17 20:43 93 Nasal Cannula 5.00 07/22/17 20:43 94 Nasal Cannula 4.00 07/22/17 20:27 98.7 78 20 127/69 (88) 95 07/22/17 16:00 97.7 73 18 132/82 (99) 95 07/22/17 12:00 97.5 90 20 133/66 (88) 93 07/22/17 08:53 16 07/22/17 08:37 94 Nasal Cannula 3.00 07/22/17 08:00 97.8 73 19 126/75 (92) 92 07/22/17 08:00 94 Nasal Cannula 4.00 I/O 07/22/17 07/22/17 07/22/17 07/23/17 07/23/17 07/23/17 07:00 15:00 23:00 07:00 15:00 23:00 Intake Total 1500 ml Output Total 1200 ml 300 ml 400 ml Balance 300 ml -300 ml -400 ml Intake Oral 1500 ml Output Urine Total 1200 ml 300 ml 400 ml # Bowel Movements 0 Result Diagram: 07/22/17 0415 07/22/17 0415 Objective Remarks GENERAL: ALERT, ORIENTED X 3 SKIN: Warm and dry. HEAD: Atraumatic. Normocephalic. EYES: Pupils equal and round. No scleral icterus. No injection or drainage. ENT: No nasal bleeding or discharge. Mucous membranes pink and moist. NECK: Trachea midline. No JVD. CARDIOVASCULAR: Regular rate and rhythm. RESPIRATORY: No accessory muscle use. Clear to auscultation. Breath sounds equal bilaterally. GASTROINTESTINAL: Abdomen soft, non-tender, nondistended. Hepatic and splenic margins not palpable. MUSCULOSKELETAL: Extremities without clubbing, cyanosis, or edema. No obvious deformities. NEUROLOGICAL: Awake and alert. No obvious cranial nerve deficits. Motor grossly within normal limits. Five out of 5 muscle strength in the arms and legs. Normal speech. PSYCHIATRIC: Appropriate mood and affect; insight and judgment normal. Assessment and Plan Assessment and Plan IMPRESSION RESPIRATORY FAILURE ? COPD EDS ? MAGUI/CSA PLAN O2 NEEDED BRONCHODILATOR TRHERAPY NPSG POST DC Aron,Aron Wadie MD July 23, 2017 01:05
[2017-07-23 04:00] VITALS: BP 128/77; PULSE 59; RESP 18; TEMP 97.2; O2SAT 93
[2017-07-23 04:16] VITALS: O2SAT 96
[2017-07-23] MEDS: ALUMINUM/MAGNESIUM/SIMETH 30 ML CUP PO PRN (04:47)
[2017-07-23] MEDS: LEVOTHYROXINE SODIUM 150 MCG TAB PO SCH (07:02)
[2017-07-23] MEDS: CEPHALEXIN MONOHYDRATE 500 MG CAP PO SCH ×2 (07:02→11:37)
[2017-07-23 08:00] VITALS: BP 136/76; PULSE 73; RESP 20; TEMP 98.1; O2SAT 90
[2017-07-23] MEDS: ASCORBIC ACID 500 MG TAB PO SCH (08:38)
[2017-07-23] MEDS: TAMSULOSIN HCL 0.4 MG CAP PO SCH (08:38)
[2017-07-23] MEDS: BUMETANIDE 1 MG TAB PO SCH (08:38)
[2017-07-23] MEDS: PANTOPRAZOLE SOD 40 MG DELAYED RELEASE TAB PO SCH (08:38)
[2017-07-23] MEDS: BACLOFEN 10 MG TAB PO SCH (08:39)
[2017-07-23] MEDS: guaiFENesin E.R. 600 MG TAB PO SCH (08:39)
[2017-07-23] MEDS: ASPIRIN EC 81 MG TABEC PO SCH (08:39)
[2017-07-23] MEDS: GABAPENTIN 300 MG CAP PO SCH (08:39)
[2017-07-23] MEDS: DOCUSATE SODIUM 50 MG/SENNA 8.6 MG TAB PO SCH (08:40)
[2017-07-23] MEDS: HEPARIN SODIUM - SQ 10,000 UNITS/ML VIAL SQ SCH (08:40)
[2017-07-23] MEDS: predniSONE 20 MG TAB PO SCH (08:40)
[2017-07-23] MEDS: OFLOXACIN 0.3% OPTH SOLN 5 ML BTL LEFT EAR SCH (08:41)
[2017-07-23] MEDS: RESP: ALBUTEROL 2.5 MG/IPRATROPIUM 0.5 MG NEB (SCH) NEB ×2 (08:59→14:52)
[2017-07-23 09:02] VITALS: O2SAT 94
[2017-07-23] MEDS ORDERED: guaiFENesin/DEXTROMETHORPHAN 200 MG/20 MG/10 ML CUP PO PRN (10:15)
[2017-07-23] MEDS ORDERED: FUROSEMIDE 40 MG/4 ML VIAL IV PUSH ONE (10:15)
--- NOTE | 2017-07-23 10:16 | HHI.DS ---
Discharge Summary Admission Date July 17, 2017 at 13:36 Discharge Date: July 23, 2017 Admitting Diagnosis new onset sz, AMS,DONALD, head injury (1) Encephalopathy ICD Code: G93.40 - Encephalopathy, unspecified Status: Resolved (2) Acute diastolic heart failure ICD Code: I50.31 - Acute diastolic (congestive) heart failure Status: Acute (3) Acute respiratory failure with hypoxia and hypercapnia ICD Code: J96.01 - Acute respiratory failure with hypoxia; J96.02 - Acute respiratory failure with hypercapnia Status: Acute (4) Abdominal pain ICD Code: R10.9 - Unspecified abdominal pain (5) Anemia ICD Code: D64.9 - Anemia, unspecified Status: Chronic (6) BPH (benign prostatic hyperplasia) ICD Code: N40.0 - Benign prostatic hyperplasia without lower urinary tract symptoms Status: Chronic (7) HTN (hypertension) ICD Code: I10 - Essential (primary) hypertension (8) Hypothyroidism ICD Code: E03.9 - Hypothyroidism, unspecified Procedures None Brief History - From Admission Patient is a 62 years old male, right handed with history of Cerebral palsy, resident of a nearby [place] - states baseline gets around "uses both" with a walker and a wheelchair who this am while trying to reach out for his walker rolled out of bed and fell and sustained a scalp laceration. A head CT was done with no acute injury. Laceration was dermabonded. Vital signs were stable, patient was alert. patient was actually set up to be DC. On checking onnhim, staff noted him to be unresponsiveness and unarousable even with deep sternal stimulus. Gradually wakened up but very agitated and confused requiring restraints. Entire stay in [facility] ER- no seizure activity was noted. ER nurse reported urinary incontinence 2-3x- urine spurted out. Now on bedside evaluation, patient is more awake and alert, interactive and responded appropriately- states he is from an [place]. denies any history of recent fever , headaches Per discussion with ER nurse, he is more back to his near baseline now. Per patient- is continent of urine and stools CBC/BMP: 07/22/17 0415 07/22/17 0415 Significant Findings Laboratory Tests Test 07/20/17 10:36 07/21/17 06:45 07/21/17 14:25 07/22/17 04:15 Red Blood Count 4.28 MIL/MM3 (4.50-5.90) Hemoglobin 12.5 GM/DL (13.0-17.0) Hematocrit 38.6 % (39.0-51.0) Platelet Count 149 TH/MM3 (150-450) Neutrophils (%) (Auto) 71.6 % (16.0-70.0) Eosinophils (%) (Auto) 7.1 % (0.0-4.0) Lymphocytes # (Auto) 0.6 TH/MM3 (1.0-4.8) Random Glucose 120 MG/DL (74-106) 142 MG/DL (74-106) 123 MG/DL (74-106) Albumin 3.3 GM/DL (3.4-5.0) Aspartate Amino Transf (AST/SGOT) 12 U/L (15-37) Estimat Glomerular Filtration Rate 78 ML/MIN (>89) 56 ML/MIN (>89) 68 ML/MIN (>89) Urine Mucus FEW /lpf (OCC) Blood Urea Nitrogen 22 MG/DL (7-18) 23 MG/DL (7-18) Sodium Level 133 MEQ/L (136-145) 135 MEQ/L (136-145) Potassium Level 6.0 MEQ/L (3.5-5.1) Chloride Level 94 MEQ/L (98-107) 93 MEQ/L (98-107) Carbon Dioxide Level 33.9 MEQ/L (21.0-32.0) PE at Discharge GENERAL: Not in distress. CARDIOVASCULAR: Regular rate and rhythm RESPIRATORY: Overall diminished bilateral breath sounds. No rales rhonchi or wheezing auscultated. GASTROINTESTINAL: Abdomen soft, non-tender, nondistended. Normal active bowel sounds MUSCULOSKELETAL: Extremities without clubbing, cyanosis, 1+ edema, right lower extremity, lateral aspect of the calf with mild redness and tenderness. NEURO: Alert & Oriented x3 to person, place, time. answers questions. Moves all ext x4 Pt update on day of discharge Patient feels good, on 4 L of oxygen, baseline is around 3-4 L. Still with some cough. Right calf pain better. No fever. Hospital Course This is a 62 years old male with history of cerebral Palsy admitted for admitted for shortness of breath and confusion after a fall. Patient's confusion was thought to be encephalopathy secondary to concussion after a fall. This has resolved. Neurology was consulted, EEG showed diffuse encephalopathy, no seizure-like activity. Neither consideration for encephalopathy was hypercarbic hypoxemic respiratory failure from possible sleep apnea. MRI of the brain was unremarkable, carotid ultrasound was unremarkable with moderate stenosis to the right. CT of the cardia showed 30% stenosis on the right ICA. Patient can continue his Neurontin and aspirin. Neurology was consulted and cleared the patient. Patient had an episode of acute kidney injury, renal ultrasound was normal. Patient will continue on Bumex 1 mg daily. He received 1 more dose of Lasix prior to discharge. For his hypertension, patient was started on Norvasc, echocardiogram was unremarkable. He was also restarted on Keflex for mild cellulitis of the right calf. For his acute hypercarbic hypoxemic respiratory failure, patient continued to be on oxygen, echocardiogram was unremarkable with preserved ejection fraction. Possible diastolic heart failure, pulmonary was consulted, and other possibilities sleep apnea. Patient will need CPAP and a nocturnal polysomnography. Pt Condition on Discharge: Good Discharge Disposition: Discharge Home Discharge Time: > 30 minutes Discharge Instructions DIET: Follow Instructions for: Heart Healthy Diet Activities you can perform: Regular-No Restrictions Follow up Referrals: PCP Follow-up - 1 Week Pulmonology - 2 Weeks New Medications: Prednisone (Prednisone) 10 Mg Tab 10 MG PO BID for Shortness of Breath, #10 TAB 0 Refills 10 mg BID x 3 days, then once a day until finished Aspirin DR (Aspirin DR) 81 Mg Tabdr 162 MG PO DAILY for Blood Clot Prevention, #30 TAB Bumetanide (Bumetanide) 1 Mg Tab 1 MG PO DAILY for pulmonary congestion, #30 TAB Cephalexin (Cephalexin) 500 Mg Cap 500 MG PO Q8HR for cellulitis, #18 CAP [Albuterol-Ipratropium Neb] () 1 AMPULE NEBU 1 AMPULE NEB Q6HR WHILE AWAKE NEB, #30 AMPULE [guaiFENesin ER] () 600 MG TABCR 600 MG PO BID, #30 TAB Continued Medications: Albuterol 18 GM Inh (Ventolin Hfa 18 GM Inh) 90 Mcg/Act Aer 2 PUFF INH Q6H PRN for SHORTNESS OF BREATH, #1 INHALER 0 Refills Ascorbic Acid (Sm Chewable C) 500 Mg Chw 250 MG PO BID for Anemia, #30 EA Atorvastatin (Atorvastatin) 20 Mg Tab 20 MG PO HS for Cholesterol Management, #30 TAB 0 Refills Baclofen (Baclofen) 10 Mg Tab 10 MG PO BID for Muscle Spasm, TAB 0 Refills Gabapentin (Gabapentin) 600 Mg Tab 600 MG PO BID, #60 TAB 0 Refills Levothyroxine (Levothyroxine) 150 Mcg Tab 150 MCG PO DAILY for Thyroid, #30 TAB 0 Refills Ofloxacin Otic Drops (Ofloxacin Otic Drops) 0.3 % Drops 5 DROP LEFT EAR DAILY for Infection for 7 Days, #1 BOTTLE 0 Refills Pantoprazole (Pantoprazole) 40 Mg Tab 40 MG PO DAILY for Reflux, #30 TAB Tamsulosin (Flomax) 0.4 Mg Cap 0.4 MG PO DAILY for Enlarged prostate, #30 CAP Inna Garcia MD July 23, 2017 10:16
[2017-07-23] MEDS ORDERED: BUME1TAB PO (10:21)
[2017-07-23] MEDS ORDERED: guaiFENesin ER PO (10:21)
[2017-07-23] MEDS ORDERED: ECASA81 PO (10:21)
[2017-07-23] MEDS ORDERED: PRED10 PO (10:21)
[2017-07-23] MEDS ORDERED: CEPH500C PO (10:21)
[2017-07-23] MEDS ORDERED: Albuterol-Ipratropium Neb NEB (10:21)
[2017-07-23 12:10] VITALS: O2SAT 91
[2017-07-23] MEDS ORDERED: LORazepam 1 MG TAB PO ONE (13:00)
== END 2017-07-23 14:58 | disposition home or self-care (01) | DRG 70 ==
LOC: NEPC 08:09 → NEDA 13:36 → N05A 17:05
PROVIDERS: ADMIT Hospitalist; ATTEND Hospitalist
PROC: 0HQ0XZZ Repair Scalp Skin, External Approach (ICD-10-PCS; principal; 2017-07-17)
PROC: 5A09557 Assistance with Respiratory Ventilation, Greater than 96 Consecutive Hours, Continuous Positive Airway Pressure (ICD-10-PCS; 2017-07-17)
DX: G93.41 Metabolic encephalopathy (principal); J96.02 Acute respiratory failure with hypercapnia; J96.01 Acute respiratory failure with hypoxia; I50.31 Acute diastolic (congestive) heart failure; N17.9 Acute kidney failure, unspecified; E87.2 Acidosis; N18.3 Chronic kidney disease, stage 3 (moderate); L03.115 Cellulitis of right lower limb; S06.0X9A Concussion with loss of consciousness of unspecified duration, initial encounter; I13.0 Hypertensive heart and chronic kidney disease with heart failure and stage 1 through stage 4 chronic kidney disease, or unspecified chronic kidney disease; Z99.81 Dependence on supplemental oxygen; E87.5 Hyperkalemia; G80.9 Cerebral palsy, unspecified; E78.5 Hyperlipidemia, unspecified; S01.01XA Laceration without foreign body of scalp, initial encounter; E03.9 Hypothyroidism, unspecified; G44.319 Acute post-traumatic headache, not intractable; R32 Unspecified urinary incontinence; J44.9 Chronic obstructive pulmonary disease, unspecified; N40.0 Benign prostatic hyperplasia without lower urinary tract symptoms; E66.9 Obesity, unspecified; I65.21 Occlusion and stenosis of right carotid artery; K59.00 Constipation, unspecified; K21.9 Gastro-esophageal reflux disease without esophagitis; I08.0 Rheumatic disorders of both mitral and aortic valves; D50.9 Iron deficiency anemia, unspecified; G47.33 Obstructive sleep apnea (adult) (pediatric); H91.90 Unspecified hearing loss, unspecified ear; W06.XXXA Fall from bed, initial encounter; Y92.092 Bedroom in other non-institutional residence as the place of occurrence of the external cause; Z68.30 Body mass index [BMI] 30.0-30.9, adult; Z78.1 Physical restraint status; Z87.891 Personal history of nicotine dependence
CPT/HCPCS: 12001; 36600; 70450; 70498; 70551; 71045; 76775; 76937; 80048; 80053; 80061; 80307; 81001; 82550; 82607; 82728; 82805; 83540; 83550; 83880; 84425; 84443; 85025; 85027; 85379; 85652; 86038; 86592; 93005; 93308; 93880; 93970; 94002; 94003; 94010; 94150; 94640; 94664; 95819; J1644; J1940; J7030; J7040; J7512; Q9967